=== PATIENT | female | born 1975 | race Caucasian/White ===

== ENCOUNTER 2021-07-16 14:27 | Emergency (ER) | payer BC, SELFPAY ==
[2021-07-16 14:36] VITALS: BP 180/97; PULSE 77; RESP 18; TEMP 36.7; O2SAT 98
--- NOTE | 2021-07-16 14:45 | DI.CT_ITS ---
Exam(s) CT HEAD WO EXAM: CT HEAD WO CLINICAL HISTORY: lt basal ganglia hemorrhagic cva. TECHNIQUE: Imaging Protocol: Axial computed tomography images with coronal and sagittal reformatted images were created and reviewed COMPARISON: No exams were available for comparison FINDINGS: Ventricles and Extra axial spaces: Normal in size and morphology for the patient's age. Hemorrhage: None. Cerebral parenchyma: Tiny area of low attenuation in the left basal ganglia, consistent with an old l acunar infarct. Midline shift: None. Brainstem/Cerebellum: Normal. Calvarium: Normal. Visualized Paranasal sinuses/Mastoids: Clear. Soft Tissues: Unremarkable. IMPRESSION: No acute intracranial process. RADIATION DOSE DELIVERED: 703.27mGy.cm Total DLP DATA REPOSITORY: All CT scans at this facility are submitted to the National Radiology Data Registry (NRDR) Dose Index Registry (DIR) with the [employer] ([employer]). RADIATION OPTIMIZATION: All CT scans at this facility use at least one of these dose optimization te chniques: automated exposure control; mA and/or kV adjustment per patient size (includes targeted exa ms where dose is matched to clinical indication); or iterative reconstruction.
--- NOTE | 2021-07-16 14:45 | RT.EKG_ITS ---
APPROVED REPORT Exam: Resting ECG Reason for Exam: BLOOD PRESSURE ISSUE Patient Location: E HR:71 bpm ECG Measurements Heart Rate 71 AXIS VA 197 P -2 QRSd 137 QRS 238 QT 464 T 29 QTc 505 Conclusion Sinus rhythm...normal P axis, V-rate 60- 99 Nonspecific intraventricular conduction delay...QRSd >115mS, not LBBB/RBBB
[2021-07-16] MEDS: LORazepam 2 MG/ML VIAL 1 MG IVP (15:23)
[2021-07-16 15:39] LABS: ALT 24 U/L (14-59); AST 19 U/L (15-37); Albumin 4.4 g/dL (3.4-5.0); Alkaline Phosphatase 55 U/L (46-116); Anion Gap 8.5 mmol/L (3-11); BUN 21 mg/dL (7-18); Bilirubin, Total 0.5 mg/dL (0.2-1.0); CO2 32.5 mmol/L (21.0-32.0); CREATININE 1.1 mg/dL (0.55-1.02); Chloride 99 mmol/L (98-107); Estimated GFR 53.71 (mL/min/1.73m2); Glucose 125 mg/dL (74-106); Potassium 3.3 mmol/L (3.5-5.1); Sodium 140 mmol/L (136-145); Total Protein 8.8 g/dL (6.4-8.2)
--- NOTE | 2021-07-16 16:02 | ED.GENADUL_ITS ---
Discharge Plan Disposition Patient Disposition: HOME Condition: Stable Discharge Details Clinical Impression: Anxiety, Headache, Hypertension Primary Care Provider: Unknown,Unknown ED Provider: Jose Mack Home Meds and New Rx's Prescriptions: New lorazepam [Ativan] 1 mg tablet 1 mg PO DAILY PRN (Reason: anxiety) Qty: 7 RF: 0 Continued metoprolol tartrate 50 mg Tablet 50 mg PO DAILY RF: 0 lisinopril-hydrochlorothiazide 20-25 mg Tablet 1 tab PO DAILY RF: 0 Discharge Instructions Instructions: Hypertension (ED), Anxiety (ED), General Headache (ED) Additional Instructions: Please contact your primary care physician to arrange follow-up. Return to the ER immediately for any worsening or new concerning symptoms. Continue your routine medications. May use Ativan, if needed for anxiety to help with sleep. Discharge Data Discharge Date/Time-TO BE ENTERED AT DEPARTURE: 07/16/21 18:37 Medical Decision Making <Josse Pope MD - Last Filed: 07/28/21 17:23> 1540 -- 45-year-old female with history of prior left basal ganglia hemorrhagic CVA, sarcoidosis, hypertension, here with severe anxiety, difficulty sleeping, elevated blood pressure and moderate frontal headache. No focal neurologic deficits on exam. Patient notes that hemorrhagic stroke was not related to aneurysm. CT head to assess for central neurologic process for central neurologic process. Suspect anxiety disorder and poor sleep. Patient was given Ativan 1 mg IV. Plan to reassess. Tylenol 650 mg given for headache. 1624 --labs reviewed and potassium noted to be 3.3. I will give single dose of 20 mEq potassium chloride. Normal creatinine. TSH pending. Patient was reassessed and anxiety improved. Blood pressure slightly improved but remains hypertensive. Patient notes that she has been taking her metoprolol and lisinopril/hydrochlorothiazide daily in the morning as prescribed. Patient notes that in the past she was on clonidine and that this did help her blood pressure. She is agreeable to trying a dose of clonidine 0.1 mg. <Jose Mack MD - Last Filed: 07/16/21 18:27> Received signout from Dr. Pope. Please see his note regarding details of the initial presentation, exam and plan of care. Patient's blood pressure improved significantly to 108/73. She underwent CT scan of the head without significant acute findings. Please see the formal radiology report. Patient stated her headache significantly improved. She had discussed some outpatient as needed use of anxiolytics with Dr. Pope which I do feel is reasonable. She is stable and improved, appropriate for discharge to home at this time. HPI <Josse Pope MD - Last Filed: 07/28/21 17:23> General Mode of arrival: ambulatory . Date/Time Provider Initiated Documentation: 07/16/21 14:56 . Limitations to Documentation: no limitations . Information obtained by: patient . HPI Narrative: 45-year-old female with history of sarcoidosis, left basal ganglia hemorrhagic stroke in January 2021 with mild residual right-sided weakness, here today with chief complaint of anxiety. Patient notes she has had difficulty sleeping for the past couple weeks. She states she has had anxiety in the past but never this severe. She believes her lack of sleep is contributing. She also notes associated elevated blood pressure and headache. Patient denies new neurologic symptoms. No weakness or tingling. No visual changes. Patient denies drug use. No herbal supplements. Related Data Home Medications Medication Instructions Recorded Confirmed lisinopril-hydrochlorothiazide 1 tab PO DAILY 07/16/21 07/16/21 lorazepam [Ativan] 1 mg PO DAILY PRN #7 tab 07/16/21 metoprolol tartrate 50 mg PO DAILY 07/16/21 07/16/21 Previous Rx's Medication Instructions Recorded lorazepam [Ativan] 1 mg PO DAILY PRN #7 tab 07/16/21 Allergies Allergy/AdvReac Type Severity Reaction Status Date / Time No Known Allergies Allergy Unverified 07/16/21 14:42 General Stated Complaint: Headache TARA: 3 Review of Systems <Josse Pope MD - Last Filed: 07/28/21 17:23> All systems reviewed & are unremarkable except as noted in HPI and below Constitutional Constitutional: Denies fever(s) Cardiovascular Cardiovascular: Denies chest pain Neurologic Neurologic: Reports as per HPI PFSH <Josse Pope MD - Last Filed: 07/28/21 17:23> Medical History Gout Sarcoidosis Stroke, hemorrhagic Surgical History History of lithotripsy Social History Smoking/Tobacco Use Status: Never Smoking risk assessment performed?: Yes Alcohol Intake: never Substance use type: does not use Do you feel safe at home: Yes Do you feel safe in your relationship?: Yes Exam <Josse Pope MD - Last Filed: 07/28/21 17:23> Const General: cooperative and no acute distress HENMT Head: normocephalic and atraumatic Mouth: moist mucous membranes Eyes Conjunctivae: normal conjunctivae Sclera: normal sclerae EOM: EOM intact bilaterally Neck Neck: trachea midline and supple Resp Auscultation: clear to auscultation bilaterally, no rales, no rhonchi and no wheezes Cardio Rate: regular rate and not tachycardic Rhythm: regular rhythm GI Palpation: soft, not firm, no guarding, no masses, not rigid and nontender Skin General skin exam: no rashes or lesions noted Neuro General: patient alert, patient awake, patient oriented x3 and tone normal Cranial Nerves: CN's II-XI intact bilaterally Cognition: normal cognition Speech: speech normal Motor: strength 5/5 throughout Sensory Exam: no sensory deficits noted Extrem General: no edema Psych Appearance: grossly normal Mental Status: mental status grossly normal Speech and Movement: speech and movement normal Mood: anxious mood Affect: anxious affect Attitude: cooperative Thought Process: normal Thought Content: normal Insight: insight good Course <Josse Pope MD - Last Filed: 07/28/21 17:23> Vital Signs Vital signs: Vital Signs Temperature 36.7 C 07/16/21 14:36 Pulse 77 07/16/21 14:36 Respiratory Rate 18 07/16/21 14:36 Blood Pressure 180/97 H 07/16/21 14:36 Pulse Oximetry 98 07/16/21 14:36 Temperature 36.7 C 07/16/21 14:36 Temperature Source Temporal Artery Scan 07/16/21 14:36 Pulse 77 07/16/21 14:36 Respiratory Rate 18 07/16/21 14:36 Respiratory Effort Non-Labored 07/16/21 14:43 Blood Pressure 180/97 H 07/16/21 14:36 Pulse Oximetry 98 07/16/21 14:36 Oxygen Delivery Method Room Air 07/16/21 14:36 Oxygen Flow Rate 0 07/16/21 14:36 Pain Level 7 07/16/21 14:36 Lab/Test Results Lab/Test Results: Laboratory Tests Range/Units 07/16/21 15:15 Sodium (136-145) mmol/L 140 Potassium (3.5-5.1) mmol/L 3.3 L Chloride (98-107) mmol/L 99 Carbon Dioxide (21.0-32.0) mmol/L 32.5 H Anion Gap (3-11) mmol/L 8.5 BUN (7-18) mg/dL 21 H Creatinine (0.55-1.02) mg/dL 1.1 H Estimated GFR/1.73 m2 (mL/min/1.73m2) 53.71 Glucose (74-106) mg/dL 125 H Calcium (8.5-10.1) mg/dL 10.0 Total Bilirubin (0.2-1.0) mg/dL 0.5 AST (15-37) U/L 19 ALT (14-59) U/L 24 Alkaline Phosphatase (46-116) U/L 55 Total Protein (6.4-8.2) g/dL 8.8 H Albumin (3.4-5.0) g/dL 4.4 POC- Test(urine) Negative Sign Out <Josse Pope MD - Last Filed: 07/28/21 17:23> Sign Out Data: Sign Out Comment: Patient here with anxiety, hypertension, headache. Plan for CT of the head. Patient receiving clonidine and plan to reassess blood p ressure. TSH pending. Last updated by Josse Pope MD at 07/16/21 16:27
[2021-07-16] MEDS: Acetaminophen 325 MG TAB 650 MG PO (16:10)
--- NOTE | 2021-07-16 16:10 | NUR.NOTE ---
Pt medicated w/ PO tylenol 650mg as ordered. Pt tolerated without complaints, NAD noted. Nursing Note:
[2021-07-16 16:25] VITALS: BP 166/113; PULSE 93; RESP 12; O2SAT 99
[2021-07-16 16:26] VITALS: BP 163/116
[2021-07-16] MEDS: cloNIDine 0.1 MG TAB PO (16:30)
[2021-07-16] MEDS: Potassium Chloride 20 MEQ TABCR PO (16:30)
[2021-07-16 16:39] LABS: TSH (W/Ref FT4) 1.17 uIU/mL (0.36-3.74)
[2021-07-16 17:34] VITALS: BP 108/73
--- NOTE | 2021-07-16 18:17 | DI.VRAD_ITS ---
PROCEDURE INFORMATION: Exam: CT Head Without Contrast Exam date and time: 07/16/2021 3:00 PM Age: 45 years old Clinical indication: Lt basal ganglia hemorrhagic CVA TECHNIQUE: Imaging protocol: Computed tomography of the head without contrast. COMPARISON: No relevant prior studies available. FINDINGS: Brain: No evidence for acute transcortical infarct. No mass effect or midline shift. No extra-axial collection. Chronic infarct involving the left basal ganglia. No acute intracranial hemorrhage. Basal cisterns are patent. Cerebral ventricles: No ventriculomegaly. Paranasal sinuses: Visualized sinuses are unremarkable. No fluid levels. Mastoid air cells: Visualized mastoid air cells are well aerated. Bones/joints: Unremarkable. No acute fracture. Soft tissues: Unremarkable. IMPRESSION: No evidence for acute transcortical infarct, acute intracranial hemorrhage, or mass effect. Dictated and Authenticated by: Shawn Brambila MD. Ordering:DOMINIK Loaiza MD
== END 2021-07-16 18:37 | disposition home or self-care (01) ==
PROVIDERS: Student in an Organized Health Care Education/Training Program; Emergency Provider Emergency Medicine
DX: F41.9 Anxiety disorder, unspecified (principal); R51.9 Headache, unspecified; I10 Essential (primary) hypertension
CPT/HCPCS: 36415; 80053; 81025; 93005; 96374; 99284; 70450; 84443; 93010; J2060

== ENCOUNTER 2021-08-27 14:38 | Emergency (ER) | payer BC, SELFPAY ==
[2021-08-27] VITALS (37 sets, daily range): BP systolic 92–191; BP diastolic 73–119; PULSE 94–123; RESP 15–28; TEMP 36.5; O2SAT 91–98
--- NOTE | 2021-08-27 14:30 | RT.EKG_ITS ---
APPROVED REPORT Exam: Resting ECG Reason for Exam: elephant on chest Patient Location: E HR:105 bpm ECG Measurements Heart Rate 105 AXIS WI 167 P 24 QRSd 111 QRS -53 QT 372 T 19 QTc 494 Conclusion Sinus tachycardia...rate> 99 LAD, consider left anterior fascicular block...axis(240,-40), S>R II III aVF. Sinus. No STEMI. I have reviewed and interpreted ECG and agree with software generated interpretation.
--- NOTE | 2021-08-27 14:45 | DI.RAD_ITS ---
Exam(s) XR CHEST 2V PA LATERAL EXAM: XR CHEST 2V PA LATERAL CLINICAL HISTORY: chest pain TECHNIQUE: 2D digital imaging was performed. COMPARISON: No exams were available for comparison FINDINGS: The heart is not enlarged. The lungs are clear and well expanded. No pleural effusion seen. Mediastin al contours appear intact. IMPRESSION: Normal chest. RADIATION DOSE DELIVERED: Total DLP
--- NOTE | 2021-08-27 15:05 | ED.GENADUL_ITS ---
Discharge Plan Disposition Patient Disposition: HOME Condition: Stable Discharge Details Clinical Impression: Anxiety Primary Care Provider: Unknown,Unknown ED Provider: Isiah Salazar Home Meds and New Rx's Prescriptions: New hydroxyzine HCl 50 mg tablet 50 mg PO BID PRN (Reason: anxiety) Qty: 30 RF: 0 lorazepam 1 mg tablet 1 mg PO Q6H PRN (Reason: anxiety) Qty: 5 RF: 0 Continued metoprolol tartrate 50 mg Tablet 50 mg PO DAILY 30 Days Qty: 30 RF: 0 lisinopril-hydrochlorothiazide 20-25 mg Tablet 1 tab PO DAILY 30 Days Qty: 30 RF: 0 Discharge Instructions Instructions: Anxiety (ED) Additional Instructions: Please use the Atarax as needed for any further anxiety and take lorazepam only if needed for severe anxiety as discussed. We have placed you on a primary care follow-up list for preferably follow-up in the next week but for any change or worsening of symptoms please return to the emergency department for reevaluation. Discharge Data Discharge Date/Time-TO BE ENTERED AT DEPARTURE: 08/27/21 19:07 Medical Decision Making <KAMILA Whaley - Last Filed: 08/28/21 16:42> This is a 45-year-old female, past medical history of hypertension, gout, sarcoidosis, hemorrhagic stroke over the summer, presenting to the ER for what she describes as ongoing and worsening chest heaviness and anxiety with panic attacks. She reports that she has been in this area longer than she anticipated which does cause her stress but otherwise no obvious stressors. She states that she is not interested in actively talking to mental health but would be interested in establishing a primary care provider locally. I have placed her on the care management with the help expedite this. Given her presentation, plan is to obtain IV access, cardiac work-up including serial troponin and D- dimer given her tachycardia. Will provide her 1 mg IV Ativan as well. Patient had a very similar presentation with thorough work-up including head CT back on July 16. Clinically she appears well, nontoxic, neurologically intact. Initial presentation revealed a heart rate of 120 and a blood pressure of 176/119. She was given 1 mg IV Ativan and her heart rate decreased to 105, blood pressure 155/89. Subjectively patient reports mild improvement CBC unremarkable. Chemistries reveal a sodium of 138 potassium 3.4 creatinine 1.0 with a GFR of 59.96. Magnesium 1.8. Troponin less than 50. Chest x-ray and D-dimer also pending. Upon reevaluation patient reports that she feels as though her anxiety is once again worsening. Heart rate is now 106, blood pressure 149/90. She will be given a second dose of 1 mg IV Ativan. Medical Records Medical records reviewed: Yes I reviewed the patient's medical records. ECG Data Attestation: I personally reviewed and interpreted this ECG (s) as follows: Interpretation: Please see official report by Dr. Gooden. Sinus tachycardia, ventricular rate of 105. No STEMI. <Isiah Salazar NP - Last Filed: 08/27/21 23:18> Patient signed out to me from KAMILA Williamson. Patient is pending a repeat troponin and following up on D-dimer testing. Report given was that patient is severely anxious and chest pain etiology is more likely is from anxiety and cardiac nature. Patient was assessed and it does appear acutely anxious but is feeling better. Reviewed labs which are reassuring and again reduce my position of ACS. Further discussion with patient is that she was on multiple medications for anxiety in the past but has not been on them for months given that she is no longer seeing her primary care provider due to moving to [place]. I feel this is reassuring given that patient is anxious in appearance and has history of similar episodes. Given this I do feel that patient should follow-up with primary care for establishment and further care of her hypertension, in which her medications were refilled due to her stating that she is almost out of her hypertensive medications, and resumption of QING treatment. Patient was given lorazepam for severe episodes of anxiety and given hydroxyzine for more mild anxiety. Return and follow-up precautions were discussed and patient placed upon follow-up for primary care establishment. After discussion of diagnosis and plan of care patient has no further needs, questions, or concerns and states clear under standing to return to the emergency department for any worsening symptoms. HPI <KAMILA Whaley - Last Filed: 08/28/21 16:42> General Mode of arrival: ambulatory . Date/Time Provider Initiated Documentation: 08/27/21 14:39 . Limitations to Documentation: no limitations . Information obtained by: patient . HPI Narrative: This is a 45-year-old female, not vaccinated for Covid, past medical history that includes HTN, sarcoidosis, gout, hemorrhagic stroke over the summer with only minimal right hand deficit, presenting to the ER for what she describes as worsening anxiety, panic attack, chest heaviness, rapid heart rate. Patient states this been going on for quite some time, was seen in the ER on 07-16 for the same and work-up was unremarkab le. Patient states that she lives in [place] and was supposed to be going back in May, is still here, which is causing her more anxiety. She states that she has been taking her medication, specifically metoprolol as directed and even taking it an extra time a day once in a while when she feels as though her blood pressure is elevated. Patient denies any headache, neck pain, visual changes, shortness of breath, abdominal pain, nausea, vomiting, pain or swelling in her calves. Denies history of DVT or PE. Patient reports a chest heaviness but denies any chest pain. Patient states that her symptoms have been present for at least 1-1/2 months but this afternoon they felt much more severe. She denies recent sick contacts. She denies smoking, alcohol use or drug use Related Data Home Medications Medication Instructions Recorded Confirmed hydroxyzine HCl 50 mg PO BID PRN #30 tab 08/27/21 lisinopril-hydrochlorothiazide 1 tab PO DAILY 30 Days #30 tab 08/27/21 lorazepam 1 mg PO Q6H PRN #5 tab 08/27/21 metoprolol tartrate 50 mg PO DAILY 30 Days #30 tab 08/27/21 Previous Rx's Medication Instructions Recorded hydroxyzine HCl 50 mg PO BID PRN #30 tab 08/27/21 lisinopril-hydrochlorothiazide 1 tab PO DAILY 30 Days #30 tab 08/27/21 lorazepam 1 mg PO Q6H PRN #5 tab 08/27/21 metoprolol tartrate 50 mg PO DAILY 30 Days #30 tab 08/27/21 Allergies Allergy/AdvReac Type Severity Reaction Status Date / Time No Known Allergies Allergy Unverified 08/27/21 14:50 General Stated Complaint: Anxiety TARA: 3 Review of Systems <KAMILA Whaley - Last Filed: 08/28/21 16:42> Constitutional Constitutional: Denies fever(s), Reports headache(s) (Occasional) and Denies weakness Eyes Eyes: Denies change in vision ENT Ears, Nose, Mouth, and Throat: Reports headache(s) (Occasional) and Denies neck pain Cardiovascular Cardiovascular: Reports chest pain (Heaviness) and Denies dyspnea Respiratory Respiratory: Denies cough and Denies dyspnea Gastrointestinal Gastrointestinal: Denies abdominal pain, Denies nausea and Denies vomiting Musculoskeletal Musculoskeletal: Denies back pain, Denies neck pain, Denies numbness and Denies tingling Integumentary/Breasts Skin/Breast: Denies rash Neurologic Neurologic: Reports headache(s) (Occasional), Denies numbness, Denies tingling and Denies weakness Psychiatric Psychiatric: Reports anxiety Endocrine Endocrine: Denies fatigue PFSH <KAMILA Whaley - Last Filed: 08/28/21 16:42> All Active Problems (Updated 08/27/21 @ 18:33 by Isiah Salazar NP) Anxiety (Chronic) Headache (Acute) Hypertension (Chronic) Medical History Gout Sarcoidosis Stroke, hemorrhagic Surgical History History of lithotripsy Social History Smoking/Tobacco Use Status: Never Smoking risk assessment performed?: Yes Alcohol Intake: never Drug use: Never Substance use type: does not use Do you feel safe at home: Yes Do you feel safe in your relationship?: Yes Exam <KAMILA Whaley - Last Filed: 08/28/21 16:42> Const General: cooperative, healthy appearing, comfortable, no acute distress and anxious Orientation: alert, awake and oriented x3 HENMT Head: normal to inspection, normocephalic and atraumatic Face and sinus: normal facial exam Mouth: moist mucous membranes Eyes General: appearance normal, both eyes and all related structures Conjunctivae: conjunctivae normal Neck Neck: normal visual inspection, full ROM, trachea midline and supple Resp Effort & Inspection: normal respiratory effort and able to speak in complete sentences Auscultation: clear to auscultation bilaterally Cardio Rate: tachycardic (120) Rhythm: regular rhythm GI Palpation: soft and nontender Back/Spine/Pelvis Back: No back tenderness Skin General skin exam: no rashes or lesions noted Neuro General: patient alert, patient awake, patient oriented x3, moves all extremities and no focal motor deficits Cranial Nerves: CN's II-XI intact bilaterally Cognition: normal cognition Speech: speech normal Gait: normal gait Motor: muscle tone normal throughout Sensory Exam: no sensory deficits noted Extrem General: normal to inspection, full ROM, capillary refill normal, no pedal edema and no calf tenderness Psych Appearance: grossly normal Mental Status: mental status grossly normal Course <KAMILA Whaley - Last Filed: 08/28/21 16:42> Vital Signs Vital signs: Vital Signs Temperature 36.5 C 08/27/21 14:42 Pulse 120 H 08/27/21 14:42 Respiratory Rate 21 08/27/21 14:42 Blood Pressure 176/119 H 08/27/21 14:42 Pulse Oximetry 98 08/27/21 14:42 Temperature 36.5 C 08/27/21 14:42 Temperature Source Temporal Artery Scan 08/27/21 14:42 Pulse 120 H 08/27/21 14:42 Respiratory Rate 21 08/27/21 14:42 Respiratory Effort Non-Labored 08/27/21 14:48 Blood Pressure 176/119 H 08/27/21 14:42 Blood Pressure Position Sitting 08/27/21 14:42 Pulse Oximetry 98 08/27/21 14:42 Oxygen Delivery Method Room Air 08/27/21 14:42 Oxygen Flow Rate 0 08/27/21 14:42 Pain Level 0 08/27/21 14:42 Sign Out <KAMILA Whaley - Last Filed: 08/28/21 16:42> Sign Out Data: Sign Out Comment: 45-year-old female, past medical history of hypertension, hemorrhagic CVA over the summer, sarcoidosis, presenting for acute on chronic worse anxiety and panic attacks with a chest heaviness sensation. Intermittently been going on for 1-2-month but worse over the afternoon. Plan is to obtain cardiac work-up with serial troponin, and D-dimer. Patient receiving IV Ativan. She is open to obtaining a local primary care provider but declined a mental health evaluation here in the ER. Last updated by Arun Mathis PA at 08/27/21 15:50
[2021-08-27] MEDS: LORazepam 2 MG/ML VIAL 1 MG IVP ×2 (15:10→15:56)
[2021-08-27 15:26] LABS: Abs Immature Grans 0.02 10^3/uL (0.0-0.06); Absolute Basophil Count 0.02 10^3/uL (0.0-0.2); Absolute Eosinophil Count 0.12 10^3/uL (0.0-0.7); Absolute Lymphocyte Count 1.31 10^3/uL (1.2-3.4); Absolute Monocyte Count 0.49 10^3/uL (0.1-0.8); Absolute Neutrophil Count 3.26 10^3/uL (1.2-6.7); Basophils % 0.4; Eosinophils % 2.3; HGB 12.9 g/dL (11.2-15.7); Immature Grans % 0.4; Lymphocytes % 25.1; MCH 29.4 pg (27.0-33.0); MCHC 33.1 % (32.0-36.0); MCV 88.8 fL (80-95); MPV 9.2 fL (8.0-11.0); Monocytes % 9.4; Neutrophils % 62.4; Nucleated RBC 0 %; Platelet Count 204 10^3/uL (130-400); RBC 4.39 10^6/uL (3.93-5.22); RDW-SD 44.6 fL; WBC 5.22 10^3/uL (4.4-10.8)
[2021-08-27 15:41] LABS: ALT 25 U/L (14-59); AST 19 U/L (15-37); Albumin 3.7 g/dL (3.4-5.0); Alkaline Phosphatase 56 U/L (46-116); Anion Gap 8.2 mmol/L (3-11); BUN 18 mg/dL (7-18); Bilirubin, Total 0.4 mg/dL (0.2-1.0); CO2 29.8 mmol/L (21.0-32.0); Calcium 9.4 mg/dL (8.5-10.1); Chloride 100 mmol/L (98-107); Estimated GFR 59.96 (mL/min/1.73m2); Glucose 177 mg/dL (74-106); Magnesium 1.8 mg/dL (1.8-2.4); Potassium 3.4 mmol/L (3.5-5.1); Sodium 138 mmol/L (136-145); Total Protein 7.7 g/dL (6.4-8.2); Troponin I < 50 ng/L (<or=60)
[2021-08-27 15:57] LABS: D-Dimer 482 ng/mlFEU (<500)
--- NOTE | 2021-08-27 16:25 | NUR.NOTE ---
Referral made to Care Management for a PCP per Arun Mathis as the patient does not have one. Put in the animal care worker's box for follow-up.
[2021-08-27] MEDS: hydrOXYzine HCL 25 MG TAB PO (17:36)
[2021-08-27 18:21] LABS: Troponin I < 50 ng/L (<or=60)
--- NOTE | 2021-08-27 19:05 | NUR.NOTE ---
Put referral in the managed care provider's box per Isiah Salazar for a PCP within one week for anxiety, hypertension, and ER follow up for chest pain.
--- NOTE | 2021-08-28 13:43 | PDOC.ERCMACT ---
- If Service Date Differs Date of service: 08/28/21 Time of Service: 13:43 Care Management Activity Note Susan was seen in the ED for chest pain and anxiety. At the request of ED provider, CM coordinates a referral to Anusha Rodriguez MD, of [facility], on-call provider, to assist Susan in obtaining a follow up appointment and in establishing care with a PCP.
== END 2021-08-27 19:07 | disposition home or self-care (01) ==
PROVIDERS: Physician Assistant; Emergency Provider Nurse Practitioner Family
DX: F41.9 Anxiety disorder, unspecified (principal); R07.89 Other chest pain; I10 Essential (primary) hypertension; R00.0 Tachycardia, unspecified
CPT/HCPCS: 80053; 81025; 93005; 96374; 96376; 99284; 71046; 83735; 84484; 85025; 85379; 93010; 99283; J2060

== ENCOUNTER 2021-09-05 13:21 | Emergency (ER) | payer BC, SELFPAY ==
--- NOTE | 2021-09-05 13:15 | RT.EKG_ITS ---
APPROVED REPORT Exam: Resting ECG Reason for Exam: hypertension Patient Location: E HR:62 bpm ECG Measurements Heart Rate 62 AXIS DE 166 P 9 QRSd 118 QRS -32 QT 466 T 44 QTc 473 Conclusion Sinus rhythm...normal P axis, V-rate 60- 99 Nonspecific intraventricular conduction delay...QRSd >115mS, not LBBB/RBBB
[2021-09-05 13:24] VITALS: BP 140/102; PULSE 70; RESP 16; TEMP 36.6; O2SAT 99
--- NOTE | 2021-09-05 13:45 | DI.CT_ITS ---
Exam(s) CT HEAD WO EXAM: CT HEAD WO CLINICAL HISTORY: HEADACHE 1-2 HOURS, HTN, PRIOR CVA. TECHNIQUE: Imaging Protocol: Axial computed tomography images with coronal and sagittal reformatted images were created and reviewed COMPARISON: CT CT HEAD WO from 07/16/2021 FINDINGS: There are no skull fractures nor fluid in the visualized paranasal sinuses. Minimal mucosal thicken ing noted posteriorly right maxillary sinus. No true fluid level therein. There is no evidence of intracranial hemorrhage, mass effect, or shift of midline structures. There are no extra-axial fluid collections. The ventricles are not enlarged or shifted and there is no blo od within the ventricular system nor within the basal cisterns. Previously described area of abnormal hypodensity in the left basal ganglia is unchanged and consiste nt with previous ischemic sequelae at this level. IMPRESSION: No acute intracranial findings on this noninfused CT scan of the brain. Evidence of nonacute infarct in left basal ganglia. If clinically indicated follow-up MRI can be performed. Report called by myself to ER provider. RADIATION DOSE DELIVERED: 749.62mGy.cm Total DLP DATA REPOSITORY: All CT scans at this facility are submitted to the National Radiology Data Registry (NRDR) Dose Index Registry (DIR) with the [employer] [place] [employer] ([employer]). RADIATION OPTIMIZATION: All CT scans at this facility use at least one of these dose optimization te chniques: automated exposure control; mA and/or kV adjustment per patient size (includes targeted exa ms where dose is matched to clinical indication); or iterative reconstruction.
--- NOTE | 2021-09-05 13:53 | ED.GENADUL_ITS ---
Discharge Plan Disposition Patient Disposition: HOME Condition: Stable Discharge Details Clinical Impression: Headache, Hypertension Primary Care Provider: Unknown,Unknown ED Provider: Josse Pope Home Meds and New Rx's Prescriptions: Continued hydroxyzine HCl 50 mg tablet 50 mg PO BID PRN (Reason: anxiety) Qty: 30 RF: 0 lorazepam 1 mg tablet 1 mg PO Q6H PRN (Reason: anxiety) Qty: 5 RF: 0 lisinopril-hydrochlorothiazide 20-25 mg Tablet 1 tab PO DAILY 30 Days Qty: 30 RF: 0 Changed metoprolol tartrate 50 mg tablet 50 mg PO TID Qty: 60 RF: 0 Discharge Instructions Instructions: Hypertension (ED), General Headache (ED) Additional Instructions: Please monitor your blood pressure. Please keep a record of your blood pressure at least twice a day and also when you take your antihypertensive medication. Please contact your primary care physician to arrange follow-up. Return to the ER immediately for any worsening or new concerning symptoms. Please get vaccinated for COVID as soon as possible. Please discuss this with your primary care physician. 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 Patient did take an extra dose of her metoprolol about an hour prior to arrival and blood pressure has improved. She notes she is starting to feel better but continues to have moderate headache. Headache is not the worst headache currently rated 8/10 and localized diffusely. Patient does note she had headache with her hemorrhagic stroke in the past and is concerned about this. Complete neurologic exam was performed and patient has no focal neurologic findings. CT of the head interpreted by radiology: No acute finding. FINDINGS: There are no skull fractures nor fluid in the visualized paranasal sinuses. Minimal mucosal thickening noted posteriorly right maxillary sinus. No true fluid level therein. There is no evidence of intracranial hemorrhage, mass effect, or shift of midline structures. There are no extra-axial fluid collections. The ventricles are not enlarged or shifted and there is no blood within the ventricular system nor within the basal cisterns. Previously described area of abnormal hypodensity in the left basal ganglia is unchanged and consistent with previous ischemic sequelae at this level. IMPRESSION: No acute intracranial findings on this noninfused CT scan of the brain. Evidence of nonacute infarct in left basal ganglia. All results were discussed with the patient. Patient reassessed and continues to remain stable after ED observation. Patient remains hemodynamically stable. She notes headache has resolved. Neurologically stable. No numbness. Continues to have no focal weakness. Plan will be for discharge with outpatient follow-up. She has an appointment scheduled with new primary care within the next couple weeks. I will increase her metoprolol to 50 mg 3 times daily as this did seem to appropriately reduce her blood pressure today. Usual customary discharge instructions were reviewed with patient. She understands the importance of timely outpatient follow-up with PCP and that she return immediately for any worsening or new concerning symptom HPI General Mode of arrival: ambulatory . Date/Time Provider Initiated Documentation: 09/05/21 13:32 . Limitations to Documentation: no limitations . Information obtained by: patient . 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 Patient took an extra dose of her metoprolol about an hour prior to arrival. She notes she is starting to feel better but continues to have moderate headache. Headache is not the worst headache currently rated 8/10 and localized diffusely. Patient does note she had headache with her hemorrhagic stroke in the past and is concerned about this. No associated visual changes or changes in speech. No focal weakness. Related Data Home Medications Medication Instructions Recorded Confirmed hydroxyzine HCl 50 mg PO BID PRN #30 tab 08/27/21 09/05/21 lisinopril-hydrochlorothiazide 1 tab PO DAILY 30 Days #30 tab 08/27/21 09/05/21 lorazepam 1 mg PO Q6H PRN #5 tab 08/27/21 metoprolol tartrate 50 mg PO TID #60 tab 09/05/21 Previous Rx's Medication Instructions Recorded hydroxyzine HCl 50 mg PO BID PRN #30 tab 08/27/21 lisinopril-hydrochlorothiazide 1 tab PO DAILY 30 Days #30 tab 08/27/21 lorazepam 1 mg PO Q6H PRN #5 tab 08/27/21 metoprolol tartrate 50 mg PO TID #60 tab 09/05/21 Allergies Allergy/AdvReac Type Severity Reaction Status Date / Time No Known Allergies Allergy Unverified 09/05/21 13:29 General Stated Complaint: CVA/TIA TARA: 2 Review of Systems All systems reviewed & are unremarkable except as noted in HPI and below Constitutional Constitutional: Denies fever(s) Cardiovascular Cardiovascular: Denies chest pain PFSH All Active Problems (Updated 09/05/21 @ 15:39 by Josse Pope MD) Anxiety (Chronic) Headache (Acute) Hypertension (Chronic) Headache (Acute) Hypertension (Chronic) Medical History Gout Sarcoidosis Stroke, hemorrhagic Surgical History History of lithotripsy Social History Smoking/Tobacco Use Status: Never Smoking risk assessment performed?: Yes Alcohol Intake: current Alcohol Intake frequency: holidays/special occasions only Drug use: Never Substance use type: does not use Do you feel safe at home: Yes Do you feel safe in your relationship?: Yes Exam Const General: cooperative and no acute distress HENMT Head: normocephalic and atraumatic Mouth: moist mucous membranes Eyes Conjunctivae: normal conjunctivae Sclera: normal sclerae Neck Neck: trachea midline and supple Resp Auscultation: clear to auscultation bilaterally, no rales, no rhonchi and no wheezes Cardio Rate: regular rate and not tachycardic Rhythm: regular rhythm Heart Sounds: no gallops, no murmurs and no rubs GI Palpation: soft, not firm, no guarding, no masses, not rigid and nontender Skin General skin exam: no rashes or lesions noted Neuro General: patient alert, patient awake, patient oriented x3 and tone normal Cranial Nerves: PERRL, accommodation normal, EOM intact bilaterally, no nystagmus, facial strength normal, tongue midline, hearing normal, able to elevate shoulders bilaterally and symmetric palate elevation Cognition: normal cognition Speech: speech normal Motor: strength 5/5 throughout Sensory Exam: no sensory deficits noted Extrem General: no edema Psych Appearance: grossly normal Mental Status: mental status grossly normal Speech and Movement: speech and movement normal Course Vital Signs Vital signs: Vital Signs Temperature 36.6 C 09/05/21 13:24 Pulse 70 09/05/21 13:24 Respiratory Rate 16 09/05/21 13:24 Blood Pressure 140/102 H 09/05/21 13:24 Pulse Oximetry 99 09/05/21 13:24 Temperature 36.6 C 09/05/21 13:24 Temperature Source Skin 09/05/21 13:24 Pulse 70 09/05/21 13:24 Respiratory Rate 16 09/05/21 13:24 Respiratory Effort 09/05/21 13:32 Blood Pressure 140/102 H 09/05/21 13:24 Pulse Oximetry 99 09/05/21 13:24 Oxygen Delivery Method Room Air 09/05/21 13:24 Oxygen Flow Rate 0 09/05/21 13:24 Pain Level 8 09/05/21 13:24 Comment 09/05/21 13:24 PAWSS Have you Been Recently Intoxicated or Drunk Within the Last 30 days?: No Have you Ever Experienced Previous Episodes of Alcohol Withdrawal?: No Have you ever Experienced Withdrawal Seizures?: No Have you ever Experienced Delirium Tremens(DT)s?: No Have you ever undergone Alcohol Rehabilitation Treatment (i.e, inpt ot outpatient treatment programs)?: No Have you ever Experienced Blackouts?: No Have you ever Combined Alcohol with other Downers within the last 90 days?: No Have you ever Combined Alcohol with any other Substance of Abuse during the last 90 days?: No Positive Blood Alcohol level on Presentation? [PCS.BAL]: No Evidence of Increased Autonomic Activity (i.e. HR>120, tremor, sweating, agitation, nausea)?: No Result: 0
[2021-09-05 13:58] LABS: Abs Immature Grans 0.04 10^3/uL (0.0-0.06); Absolute Basophil Count 0.05 10^3/uL (0.0-0.2); Absolute Lymphocyte Count 1.44 10^3/uL (1.2-3.4); Absolute Monocyte Count 0.56 10^3/uL (0.1-0.8); Absolute Neutrophil Count 3.18 10^3/uL (1.2-6.7); Basophils % 0.9; Eosinophils % 3.7; HCT 36.4 % (36.0-46.0); HGB 12.2 g/dL (11.2-15.7); Immature Grans % 0.7; Lymphocytes % 26.3; MCH 29.8 pg (27.0-33.0); MCHC 33.5 % (32.0-36.0); MCV 88.8 fL (80-95); MPV 9.4 fL (8.0-11.0); Monocytes % 10.2; Neutrophils % 58.2; Nucleated RBC 0 %; Platelet Count 239 10^3/uL (130-400); RDW 13.7 % (11.7-14.6); RDW-SD 43.5 fL; WBC 5.47 10^3/uL (4.4-10.8)
[2021-09-05 14:14] LABS: ALT 23 U/L (14-59); AST 26 U/L (15-37); Albumin 3.6 g/dL (3.4-5.0); Alkaline Phosphatase 52 U/L (46-116); Anion Gap 5.4 mmol/L (3-11); BUN 15 mg/dL (7-18); Bilirubin, Total 0.3 mg/dL (0.2-1.0); CO2 32.6 mmol/L (21.0-32.0); Calcium 9.4 mg/dL (8.5-10.1); Chloride 101 mmol/L (98-107); Estimated GFR 59.96 (mL/min/1.73m2); Glucose 131 mg/dL (74-106); Magnesium 1.8 mg/dL (1.8-2.4); Potassium 3.9 mmol/L (3.5-5.1); Sodium 139 mmol/L (136-145); Total Protein 7.7 g/dL (6.4-8.2); Troponin I < 50 ng/L (<or=60)
== END 2021-09-05 15:48 | disposition home or self-care (01) ==
PROVIDERS: Emergency Provider Student in an Organized Health Care Education/Training Program
DX: R51.9 Headache, unspecified (principal); I10 Essential (primary) hypertension; R20.0 Anesthesia of skin; Z86.73 Personal history of transient ischemic attack (TIA), and cerebral infarction without residual deficits
CPT/HCPCS: 36415; 80053; 81025; 93005; 99284; 70450; 83735; 84484; 85025; 93010; 99283

== ENCOUNTER 2021-09-24 07:56 | Emergency (ER) | payer BC, SELFPAY ==
[2021-09-24] VITALS (24 sets, daily range): BP systolic 144–185; BP diastolic 79–112; PULSE 60–77; RESP 12–28; TEMP 36.4; O2SAT 93–100
--- NOTE | 2021-09-24 08:00 | RT.EKG_ITS ---
APPROVED REPORT Exam: Resting ECG Reason for Exam: dizziness, elevated bp Patient Location: E HR:60 bpm ECG Measurements Heart Rate 60 AXIS [place] 157 P 6 QRSd 123 QRS -18 QT 468 T 57 QTc 469 Conclusion Sinus rhythm...normal P axis, V-rate 60- 99 Probable left ventricular hypertrophy...(RaVL+SV3)xQRSd >300 sinus rhythm at 60, normal axis, probable LVH, no STEMI, no major change from prior 09/05/2021, nondia gnostic EKG
--- NOTE | 2021-09-24 08:21 | ED.GENADUL_ITS ---
Discharge Plan Disposition Patient Disposition: HOME Condition: Improving Discharge Details Clinical Impression: Hypertension, Hematuria, Anxiety Primary Care Provider: Unknown,Unknown ED Provider: Katharina Pope Home Meds and New Rx's Prescriptions: New lisinopril 40 mg tablet 40 mg PO DAILY Qty: 30 RF: 0 chlorthalidone 25 mg tablet 25 mg PO DAILY Qty: 30 RF: 0 amlodipine 5 mg tablet 5 mg PO DAILY Qty: 30 RF: 0 lorazepam [Ativan] 0.5 mg tablet 0.5 mg PO BID PRN (Reason: anxiety) Qty: 10 RF: 0 Discontinued lisinopril-hydrochlorothiazide 20-25 mg Tablet 1 tab PO DAILY 30 Days Qty: 30 RF: 0 No Action metoprolol tartrate 50 mg tablet 50 mg PO TID Qty: 60 RF: 0 Discharge Instructions Instructions: Lorazepam (By mouth), Chlorthalidone (By mouth), Amlodipine (By mouth), Hematuria (ED), Hypertension (ED) Additional Instructions: Please stop taking your lisinopril/hydrochlorothiazide pill. Please begin taking lisinopril 40 mg daily, chlorthalidone 25 mg daily, and amlodipine 5 mg daily. Continue to take your metoprolol as prescribed. You have been prescribed Ativan, you may take 0.5 mg Ativan as needed every 12 hours for anxiety. Do not take Ativan with alcohol or other sedating medications as it can be dangerous when using combination with other sedating medication, drugs, or alcohol. Do not drive well taking Ativan. Please return immediately to the emergency department if you develop any new or worsening symptoms, if your condition does not improve as expected, or if you become otherwise concerned. It is extremely important that you call soon as possible to make an appointment to be seen in follow-up for this visit by a urologist, and also that you attend your scheduled appointment with the PCP on October 01. Referrals: Arsh Littlejohn MD [ [facility] STAFF PHYSICIAN] - Medical Decision Making Susan Salas is a 46 y/o woman with history of CVA 02/10, hypertension presenting to emergency department with high blood pressure readings. On exam patient is well nontoxic-appearing, and anxious. Benign cardiopulmonary exam. Benign neurologic exam. As patient reports that headaches are very typical for her and often much worse than what is currently occurring, her exam/history at this time is not consistent with acute CVA, subarachnoid hemorrhage, other acute emergent endorgan damage including acute coronary syndrome, hypertensive emergency. Concern for chronic asymptomatic hypertension resistant to medication, possible metabolic/lyte derangement, other. Plan for EKG, screening labs. I did discuss patient's presentation with hospitalist Dr. Roland for outpatient management of blood pressure, he recommended switch to lisinopril 40 mg, chlorthalidone 25 mg, add Norvasc 5 mg, remove hydrochlorothiazide, continue metoprolol 50 mg. Patient's heart rate in the 60s at this point, plan to give lisinopril 40 mg, Norvasc 5 mg, chlorthalidone 25 mg, and 1 mg Ativan at this time. Will monitor and reassess. Patient blood pressure improved, currently 144/95. Patient reports that she feels much better, headache is resolved. She has had no vomiting in the emergency department. She denies any other symptoms other than some continuing anxiety. I had a lengthy discussion with patient about mental health issues, importance of outpatient follow-up as patient does likely need work-up for secondary hypertension, needs to be evaluated for need for sarcoidosis medication, and also for ongoing hematuria. Patient to follow-up here tomorrow morning for recheck after change in meds, she is amenable to this plan. Patient will also need to see PCP as schedule 10/01, and will need to see urology. I did discuss patient with care management, who will follow as outpatient. Plan for Rx 0.5 mg Ativan x10 as her anxiety is likely contributing somewhat to her blood pressure and is also causing her some distress at home. Exam/history at this time not consistent with acute suicidality or acute emergent psychiatric process. I had a discussion with Patient regarding return to emergency department precautions, home care, and importance of outpatient follow-up. Pt verbalizes understanding of the plan and is amenable. Patient discharged to home with clear plan for outpatient follow-up. All questions were answered. Disposition decision was made weighing the risks and benefits of hospitalization versus outpatient treatment, the risk for further decompensation, and the patient's wishes. Medical Records Medical records reviewed: Yes I reviewed the patient's medical records. Lab Data Lab results reviewed: Yes I reviewed the patient's lab results. Labs: Laboratory Tests Range/Units 09/24/21 09/24/21 09/24/21 08:50 08:50 09:45 WBC (4.4-10.8) 10^3/uL 5.49 RBC (3.93-5.22) 10^6/uL 4.41 Hgb (11.2-15.7) g/dL 12.8 Hct (36.0-46.0) % 39.2 MCV (80-95) fL 88.9 MCH (27.0-33.0) pg 29.0 MCHC (32.0-36.0) % 32.7 RDW (11.7-14.6) % 13.5 Plt Count (130-400) 10^3/uL 181 MPV (8.0-11.0) fL 9.2 Immature Gran % 0.4 Neutrophils % 73.4 Lymphocytes % 15.3 Monocytes % 6.9 Eosinophils % 3.3 Basophils % 0.7 Nucleated RBC % % 0 Absolute Neutrophils (1.2-6.7) 10^3/uL 4.03 Absolute Lymphocytes (1.2-3.4) 10^3/uL 0.84 L Absolute Monocytes (0.1-0.8) 10^3/uL 0.38 Absolute Eosinophils (0.0-0.7) 10^3/uL 0.18 Absolute Basophils (0.0-0.2) 10^3/uL 0.04 Sodium (136-145) mmol/L 137 Potassium (3.5-5.1) mmol/L 3.4 L Chloride (98-107) mmol/L 97 L Carbon Dioxide (21.0-32.0) mmol/L 31.4 Anion Gap (3-11) mmol/L 8.6 BUN (7-18) mg/dL 16 Creatinine (0.55-1.02) mg/dL 1.0 Estimated GFR/1.73 m2 (mL/min/1.73m2) 59.69 Glucose (74-106) mg/dL 161 H Calcium (8.5-10.1) mg/dL 9.2 Total Bilirubin (0.2-1.0) mg/dL 0.6 AST (15-37) U/L 19 ALT (14-59) U/L 20 Alkaline Phosphatase (46-116) U/L 57 Total Protein (6.4-8.2) g/dL 7.9 Albumin (3.4-5.0) g/dL 3.9 Urine Color (Yellow) Yellow Urine Clarity (Clear) Clear Urine pH (5-8) 7.0 Ur Specific [place] (1.005-1.025) 1.020 Urine Protein (Negative) mg/dL Negative Urine Ketones (Negative) mg/dL Negative Urine Blood (Negative) Trace-intact H Urine Nitrite (Negative) Negative Urine Bilirubin (Negative) Negative Urine Urobilinogen (Up TO 0.2) EU/dL 0.2 Ur Leukocyte Esterase (Negative) Small H Urine RBC (0-2) HPF 0-2 Urine WBC (0-5) HPF 3-5 Ur Epithelial Cells (Negative) HPF Rare Urine Crystals (Negative) HPF Negative Urine Bacteria (Negative) HPF Few Urine Casts (Negative) LPF Negative Urine Mucus (Negative) Negative Urine Other (Negative) Negative Ur Culture Indicated? No Urine Glucose (Negative) mg/dL Negative ECG Data Attestation: I personally reviewed and interpreted this ECG (s) as follows: Interpretation: EKG shows sinus rhythm at 60, normal axis, probable LVH, no STEMI, no major change from prior 09/05/2021, nondiagnostic EKG HPI General Mode of arrival: ambulatory . Date/Time Provider Initiated Documentation: 09/24/21 07:57 . Limitations to Documentation: no limitations . Information obtained by: patient, RN notes reviewed and old records reviewed . HPI Narrative: Susan Salas is a 46-year-old woman with a history of hypertension, sarcoidosis, CVA presenting to the emergency department with high blood pressure readings. Per record review patient had basal ganglia stroke 02/10, has been seen in this emergency department several times for high blood pressure. Patient reports that she was scheduled to have outpatient PCP follow- up as an outpatient last week, but PCP's office rescheduled for 10/01. Patient reports that her home blood pressure readings have been very high, with systolic readings 180-210 and diastolic readings over 100. Patient reports that when her blood pressure readings are elevated she becomes very anxious and concerned that she is going to have a stroke. Patient reports that she has no symptoms at this time other than mild headache which is common for her. She denies any other pain, shortness of breath, cough, diarrhea, numbness, weakness. Patient does report that she vomited once this morning, but she attributes this to anxiety and states this has happened to her before when she has anxiety. Patient report that this is not the worst headache of her life, she rates it as a 4 out of 10. Patient states only residual symptom from stroke 621 is intermittent weakness in her right arm, not currently occurring.Patient states that over the past 24 hours she has taken 3 of her lisinopril/hydrochlorothiazide but tabs and has taken 8 of her 50mg metoprolol tab without apparent change in her blood pressure. Patient reports that she has never had work-up for secondary hypertension, does not believe she has ever had ultrasound or other imaging of her kidneys. Patient states that she lives in [place]. She states that she came to [place] a few months ago with her boyfriend with the intention of going back to [place] within a month or 2, but her trip has been delayed for financial reasons. She reports that she lives in an apartment with her boyfriend. She states that prior to coming to [place] she was supposed to be seeing urology and nephrology for blood in her urine that had been ongoing for months, but did not end up seeing nephrology due to the trip here. Patient reports that she is supposed to be on medications for her sarcoidosis, but has not been on any meds for this for several months due to being in [place]. Patient states that her relationship with her boyfriend does contribute to her anxiety. She states that nobody is hurting her or threatening her that she feels safe at home and in her relationship. She denies self-harm or suicidal thoughts. Related Data Home Medications Medication Instructions Recorded Confirmed metoprolol tartrate 50 mg PO TID #60 tab 09/05/21 09/24/21 amlodipine 5 mg PO DAILY #30 tab 09/24/21 chlorthalidone 25 mg PO DAILY #30 tab 09/24/21 lisinopril 40 mg PO DAILY #30 tab 09/24/21 lorazepam [Ativan] 0.5 mg PO BID PRN #10 tab 09/24/21 Previous Rx's Medication Instructions Recorded metoprolol tartrate 50 mg PO TID #60 tab 09/05/21 amlodipine 5 mg PO DAILY #30 tab 09/24/21 chlorthalidone 25 mg PO DAILY #30 tab 09/24/21 lisinopril 40 mg PO DAILY #30 tab 02/02/22 lorazepam [Ativan] 0.5 mg PO BID PRN #10 tab 09/24/21 Allergies Allergy/AdvReac Type Severity Reaction Status Date / Time No Known Allergies Allergy Unverified 09/24/21 08:02 General Stated Complaint: Dizzy/Sync TARA: 3 Review of Systems Narrative: Constitutional: denies fevers Eyes: denies eye pain ENT: denies ear pain, dental pain, sore throat Cardiovascular: denies chest pain, edema Respiratory: denies SOB, cough GI: denies abdominal pain, diarrhea, reports vomiting : denies flank pain MSK: denies back pain, neck pain, arthralgias, myalgias Skin: denies rash Neuro: denies numbness, weakness, reports headache Psych: Reports anxiety, denies self-harm, suicidal thoughts PFSH All Active Problems (Updated 09/24/21 @ 10:45 by Katharina Pope MD) Anxiety (Chronic) Headache (Acute) Hypertension (Chronic) Headache (Acute) Hypertension (Chronic) Hematuria (Acute) Medical History Gout Sarcoidosis Stroke, hemorrhagic Surgical History History of lithotripsy Social History Smoking/Tobacco Use Status: Never Smoking risk assessment performed?: Yes Alcohol Intake: current Alcohol Intake frequency: holidays/special occasions only Drug use: Never Substance use type: does not use Do you feel safe at home: Yes Do you feel safe in your relationship?: Yes Exam Narrative Exam Narrative: Constitutional: well and [id number], anxious, pleasant, conversing normally HENT: head atraumatic/normocephalic/normal inspection, mucous membranes moist Eyes: conjunctiva normal, sclera normal, pupils 3mm b/l equal round reactive to light and accommodation, extraocular movements intact without nystagmus Neck: no stridor, normal ROM, trachea midline Chest: normal inspection Resp: normal work of breathing, speaking in full sentences Cardio: normal rate, normal rhythm GI: abdomen soft, non-tender, non-distended Back: normal inspection, no rash Skin: warm, dry, normal color, no rash Neuro: alert, not altered, cranial nerves II through XII intact, motor 5-5 throughout, no pronator drift, normal tone Ext: no edema no posterior calf tenderness to palpation Psych: Anxious mood, normal affect, normal behavior Course Vital Signs Vital signs: Vital Signs Respiratory Rate 14 09/24/21 07:59 Temperature 36.4 C L 09/24/21 08:05 Temperature Source Temporal Artery Scan 09/24/21 08:05 Pulse 61 09/24/21 08:05 Respiratory Rate 18 09/24/21 08:05 Respiratory Effort Non-Labored 09/24/21 08:03 Respiratory Depth Normal 09/24/21 08:03 Respiratory Pattern Normal 09/24/21 08:03 Blood Pressure 185/103 H 09/24/21 08:05 Pulse Oximetry 100 09/24/21 08:05 Oxygen Delivery Method Room Air 09/24/21 08:05 Oxygen Flow Rate 0 09/24/21 08:05 Pain Level 6 09/24/21 07:59
[2021-09-24 08:56] LABS: Abs Immature Grans 0.02 10^3/uL (0.0-0.06); Absolute Basophil Count 0.04 10^3/uL (0.0-0.2); Absolute Eosinophil Count 0.18 10^3/uL (0.0-0.7); Absolute Lymphocyte Count 0.84 10^3/uL (1.2-3.4); Absolute Monocyte Count 0.38 10^3/uL (0.1-0.8); Absolute Neutrophil Count 4.03 10^3/uL (1.2-6.7); Basophils % 0.7; Eosinophils % 3.3; HCT 39.2 % (36.0-46.0); HGB 12.8 g/dL (11.2-15.7); Immature Grans % 0.4; Lymphocytes % 15.3; MCHC 32.7 % (32.0-36.0); MCV 88.9 fL (80-95); MPV 9.2 fL (8.0-11.0); Monocytes % 6.9; Neutrophils % 73.4; Nucleated RBC 0 %; Platelet Count 181 10^3/uL (130-400); RBC 4.41 10^6/uL (3.93-5.22); RDW 13.5 % (11.7-14.6); RDW-SD 43.1 fL; WBC 5.49 10^3/uL (4.4-10.8)
[2021-09-24] MEDS: Chlorthalidone 25 MG TAB PO (09:01)
[2021-09-24] MEDS: Lisinopril 20 MG TAB 40 MG PO (09:02)
[2021-09-24] MEDS: amLODIPine 5 MG TAB PO (09:02)
[2021-09-24] MEDS: LORazepam 2 MG/ML VIAL 1 MG IVP (09:02)
[2021-09-24 09:10] LABS: ALT 20 U/L (14-59); AST 19 U/L (15-37); Albumin 3.9 g/dL (3.4-5.0); Alkaline Phosphatase 57 U/L (46-116); Anion Gap 8.6 mmol/L (3-11); BUN 16 mg/dL (7-18); Bilirubin, Total 0.6 mg/dL (0.2-1.0); CO2 31.4 mmol/L (21.0-32.0); Calcium 9.2 mg/dL (8.5-10.1); Chloride 97 mmol/L (98-107); Estimated GFR 59.69 (mL/min/1.73m2); Glucose 161 mg/dL (74-106); Potassium 3.4 mmol/L (3.5-5.1); Sodium 137 mmol/L (136-145); Total Protein 7.9 g/dL (6.4-8.2)
[2021-09-24 10:05] LABS: Bilirubin Negative (Negative); Blood Trace-intact (Negative); Clarity Clear (Clear); Glucose Negative (Negative); Ketones Negative (Negative); Leukocyte Esterase Small (Negative); Nitrite Negative (Negative); Urobilinogen 0.2 EU/dL (Up TO 0.2)
[2021-09-24 10:35] LABS: Bacteria Few HPF (Negative); Crystals Negative HPF (Negative); Epithelial Cells Rare HPF (Negative); Mucus Negative (Negative); Other Cells Negative (Negative); RBC 0-2 HPF (0-2)
[2021-09-24 10:36] LABS: C & S Indicated? No; Casts Negative LPF (Negative)
--- NOTE | 2021-09-24 11:24 | NUR.NOTE ---
Nursing Note: referral to cm and urology for follow up
== END 2021-09-24 10:58 | disposition home or self-care (01) ==
PROVIDERS: Emergency Provider Student in an Organized Health Care Education/Training Program; PCP Nurse Practitioner Family
DX: I10 Essential (primary) hypertension (principal); R31.9 Hematuria, unspecified; F41.9 Anxiety disorder, unspecified; R42 Dizziness and giddiness
CPT/HCPCS: 36415; 80053; 81025; 93005; 96374; 99284; 81003; 81015; 85025; 93010; 99283; J2060

== ENCOUNTER 2021-09-25 07:58 | Emergency (ER) | payer BC, SELFPAY ==
[2021-09-25 08:05] VITALS: BP 167/92; PULSE 67; RESP 18; TEMP 36.6; O2SAT 96
--- NOTE | 2021-09-25 08:15 | W.ED.GENAD ---
Discharge Plan Disposition Patient Disposition: HOME Condition: Stable Discharge Details Clinical Impression: Hypertension Primary Care Provider: COURTNEY DIOR ED Provider: Jennifer Gabriel Home Meds and New Rx's Prescriptions: Continued metoprolol tartrate 50 mg tablet 50 mg PO TID Qty: 60 RF: 0 lisinopril 40 mg tablet 40 mg PO DAILY Qty: 30 RF: 0 chlorthalidone 25 mg tablet 25 mg PO DAILY Qty: 30 RF: 0 amlodipine 5 mg tablet 5 mg PO DAILY Qty: 30 RF: 0 lorazepam [Ativan] 0.5 mg tablet 0.5 mg PO BID PRN (Reason: anxiety) Qty: 10 RF: 0 Discharge Instructions Instructions: Hypertension (ED) Additional Instructions: Continue monitoring your blood pressure at the same time every day. Please return for any worsening headache or concerns. Please keep your previously scheduled PCP appointment on the . Follow up with primary care provider in 3-5 days. Return to ED sooner if any worsening or concerns. Increase oral fluids. Referrals: COURTNEY DIOR, CHEMICAL [employer]ECTION EXPERT [Primary Care Provider] - 1 week Medical Decision Making 46-year-old female presents to the ER for recheck of her blood pressure in the ER yesterday. Patient had her blood pressure medication changed. She denies any headache her blood pressure today is 167/92 which is improved from her previous visit. She denies any other associated symptoms. She does have a PCP appointment on October 01 I did encourage her to keep that. I also instructed her to return if any returning symptoms, headache or any concerns. Patient verbalized understanding HPI General Mode of arrival: ambulatory. Date/Time Provider Initiated Documentation: 09/25/21 08:00. Limitations to Documentation: no limitations. Information obtained by: patient, RN notes reviewed and old records reviewed. HPI Narrative: 46-year-old female presents to the ER for recheck of her blood pressure in the ER yesterday. Patient had her blood pressure medication changed. She denies any headache her blood pressure today is 167/92 which is improved from her previous visit. She denies any other associated symptoms. She does have a PCP appointment on October 01 I did encourage her to keep that. I also instructed her to return if any returning symptoms, headache or any concerns. Patient verbalized understanding Related Data Home Medications Medication Instructions Recorded Confirmed metoprolol tartrate 50 mg PO TID #60 tab 09/05/21 09/25/21 amlodipine 5 mg PO DAILY #30 tab 09/24/21 09/25/21 chlorthalidone 25 mg PO DAILY #30 tab 09/24/21 09/25/21 lisinopril 40 mg PO DAILY #30 tab 09/24/21 09/25/21 lorazepam [Ativan] 0.5 mg PO BID PRN #10 tab 09/24/21 09/25/21 Previous Rx's Medication Instructions Recorded metoprolol tartrate 50 mg PO TID #60 tab 09/05/21 amlodipine 5 mg PO DAILY #30 tab 09/24/21 chlorthalidone 25 mg PO DAILY #30 tab 09/24/21 lisinopril 40 mg PO DAILY #30 tab 09/24/21 lorazepam [Ativan] 0.5 mg PO BID PRN #10 tab 09/24/21 Allergies Allergy/AdvReac Type Severity Reaction Status Date / Time No Known Allergies Allergy Unverified 09/25/21 08:10 General Stated Complaint: Recheck TARA: 4 Review of Systems Constitutional Constitutional: Denies headache(s) ENT Ears, Nose, Mouth, and Throat: Denies headache(s) Cardiovascular Cardiovascular: Denies chest pain, Denies radiating jaw, neck or arm pain and Denies dyspnea Respiratory Respiratory: Denies dyspnea Neurologic Neurologic: Denies headache(s) PFSH All Active Problems (Updated 09/25/21 @ 08:18 by Jennifer Gabriel) Anxiety (Chronic) Headache (Acute) Hypertension (Chronic) Headache (Acute) Hypertension (Chronic) Hematuria (Acute) Medical History Gout Sarcoidosis Stroke, hemorrhagic Surgical History History of lithotripsy Social History Smoking/Tobacco Use Status: Never Smoking risk assessment performed?: Yes Alcohol Intake: current Alcohol Intake frequency: holidays/special occasions only Drug use: Never Substance use type: does not use Do you feel safe at home: Yes Do you feel safe in your relationship?: Yes Exam Narrative Exam Narrative: Constitutional: Alert and oriented x3. Appears stated age. Normal body habitus. Head: Normocephalic, no trauma. Eyes: Pupils PERRL, Red reflex noted, EOM's intact. Eyelids symmetrical without lesions, discharge, or swelling. ENT: Bilateral TM's WNL, External ear normal to inspection, no mastoid TTP, swelling, or erythema, Nasal turbinates WNL, no nasal discharge. Normal dentition, Posterior pharynx WNL, no exudate. Chest: RRR, Normal S1, S2, distal pulses intact. Resp: Lungs clear to auscultation bilaterally, no wheezes, rales, or rhonchi. Abdomen: Soft, non-distended, Normoactive bowel sounds all 4 quads. Musculoskeletal: Normal gait, 5/5 strength to all four extremities. Skin: No suspicious rashes or lesions. Capillary refill less than 2 sec. Neurologic: Cranial nerves II-XII intact. Alert and oriented x 3. Motor: No deficits noted. Sensory: Intact bilaterally all 4 extremities. Reflexes: DTR's intact bilaterally.. Hematologic/Lymphatic: No ecchymosis, no lymphadenopathy. Course Vital Signs Vital signs: Vital Signs Temperature 36.6 C 09/25/21 08:05 Pulse 67 09/25/21 08:05 Respiratory Rate 18 09/25/21 08:05 Blood Pressure 167/92 H 09/25/21 08:05 Pulse Oximetry 96 09/25/21 08:05 Temperature 36.6 C 09/25/21 08:05 Temperature Source Temporal Artery Scan 09/25/21 08:05 Pulse 67 09/25/21 08:05 Respiratory Rate 18 09/25/21 08:05 Respiratory Effort Non-Labored 09/25/21 08:10 Blood Pressure 167/92 H 09/25/21 08:05 Blood Pressure Position Sitting 09/25/21 08:05 Pulse Oximetry 96 09/25/21 08:05 Oxygen Delivery Method Room Air 09/25/21 08:05 Oxygen Flow Rate 0 09/25/21 08:05
== END 2021-09-25 08:38 | disposition home or self-care (01) ==
PROVIDERS: Emergency Provider Registered Nurse Emergency; PCP Nurse Practitioner Family
DX: I10 Essential (primary) hypertension (principal)
CPT/HCPCS: 99281

== ENCOUNTER 2021-10-01 15:10 | Outpatient (REF) | payer BC, SELFPAY ==
[2021-10-01 15:19] LABS: ALT 22 U/L (14-59); AST 13 U/L (15-37); Albumin 3.6 g/dL (3.4-5.0); Alkaline Phosphatase 51 U/L (46-116); Anion Gap 9.4 mmol/L (3-11); BUN 20 mg/dL (7-18); Bilirubin, Total 0.3 mg/dL (0.2-1.0); CO2 28.6 mmol/L (21.0-32.0); Calcium 9.2 mg/dL (8.5-10.1); Chloride 101 mmol/L (98-107); Estimated GFR 59.69 (mL/min/1.73m2); Glucose 143 mg/dL (74-106); Potassium 3.6 mmol/L (3.5-5.1); Sodium 139 mmol/L (136-145); TSH 1.46 uIU/mL (0.36-3.74); Total Protein 7.1 g/dL (6.4-8.2)
== END 2021-10-01 15:11 | disposition home or self-care (01) ==
LOC: NCHCN 15:10
PROVIDERS: PCP Nurse Practitioner Family; Visit Provider Nurse Practitioner Family
DX: F41.9 Anxiety disorder, unspecified (principal); I10 Essential (primary) hypertension; D86.9 Sarcoidosis, unspecified; Z02.89 Encounter for other administrative examinations
CPT/HCPCS: 80053; 84443

== ENCOUNTER 2021-10-25 16:32 | Emergency (ER) | payer BC, SELFPAY ==
[2021-10-25 16:39] VITALS: BP 118/73; PULSE 86; RESP 16; TEMP 36.6; O2SAT 97
--- NOTE | 2021-10-25 17:00 | DI.US_ITS ---
Exam(s) US PELVIS TRANSVAGINAL EXAM: US PELVIS TRANSVAGINAL CLINICAL HISTORY: heavy vag bleed, pelvic pain, r/o torsion/fibroid TECHNIQUE: Ultrasound performed using standard protocol. COMPARISON: No exams were available for comparison FINDINGS: Pelvic ultrasound was performed transabdominally and transvaginally. Uterus measures 8.9 x 5.8 x 6.4 cm and contains an apparent midbody 5 cm in diameter fibroid. The th ere is tiny nabothian cyst. Endometrial stripe is about 2 millimeters in thickness and appears homogeneous. Left ovary measures 22 x 17 x 25 and is unremarkable in appearance. Right ovary measures 60 x 29 x 4 7 millimeters and contains 2 simple cysts, 1 measuring about 27 millimeters in diameter and the other measuring about 22 millimeters in diameter. Arterial and venous flow is observed in both ovaries. No free fluid in the cul-de-sac. Limited scanning of the kidneys was obtained and shows an apparent left midpole renal calculus, confirmed by posterior acoustic shadowing and twinkle artifact. The sto ne measures about 13 millimeters in diameter. IMPRESSION: Right ovarian simple cysts, presumably functional. No other specific findings. DATA REPOSITORY:
--- NOTE | 2021-10-25 17:03 | W.ED.GENAD ---
Discharge Plan Disposition Patient Disposition: HOME Condition: Stable Discharge Details Clinical Impression: Dysfunctional uterine bleeding, Uterine fibroid Primary Care Provider: COURTNEY DIOR ED Provider: Michelle Gooden Home Meds and New Rx's Prescriptions: Continued amlodipine 5 mg tablet 5 mg PO DAILY Qty: 30 0RF lorazepam [Ativan] 0.5 mg tablet 0.5 mg PO BID PRN (Reason: anxiety) Qty: 10 0RF omeprazole 20 mg capsule,delayed release(DR/EC) 20 mg PO DAILY 0RF Label Comments: Take 1 capsule by mouth once a day quetiapine [Seroquel] 50 mg tablet 50 mg PO DAILY 0RF Label Comments: 1 tablet by mouth once a day chlorthalidone 25 mg tablet 12.5 mg PO DAILY 0RF metoprolol tartrate 50 mg tablet 25 mg PO BID 0RF lisinopril 40 mg tablet 30 mg PO DAILY 0RF Discharge Instructions Instructions: Abnormal (Dysfunctional) Uterine Bleeding (ED) Additional Instructions: Your lab work today is reassuring but does note that your hemoglobin is slightly low at 10.6. Your potassium was also low at 3.0. You were given potassium here today but you can also supplement it in your diet with foods such as bananas, spinach, tomatoes, etc. Your ultrasound noted a uterine fibroid which is likely the source of your pain. Drink plenty of fluids and get plenty of rest. Alternate tylenol and motrin as needed and directed for pain. Called [facility] on Wednesday morning to confirm a follow-up appointment for this week. Return immediately to the emergency department if you develop any worsening or new concerning symptoms. Referrals: [facility] [place] [Provider Group] Discharge Data Discharge Physician: Michelle Gooden Medical Decision Making 46-year-old female with a history of obesity, hypertension who presents with heavy vaginal bleeding and abdominal pain for the past 24 days. Vitals within normal limits. Abdomen is soft and minimally tender in the right mid abdomen. No right lower quadrant tenderness or rebound, guarding or rigidity. Patient referred for labs and pelvic ultrasound. White blood cell count 5. Potassium 3, will replete. Urinalysis notes large blood but appears contaminated. Bedside pelvic ultrasound done which noted mild bleeding. Pelvic ultrasound noted fibroid. Discussed with patient that her symptoms could be due to fibroids, or imbalance in hormonal cycle and is recommended that she follows up with [facility] for further evaluation and consideration for additional procedures, control etc. Advised to follow up with the primary care doctor for re-evaluation. Usual and customary return precautions given prior to discharge. Medical Records Medical records reviewed: Yes I reviewed the patient's medical records. Imaging Data Radiologic Study: Radiologist's impression: US Pelvis Complete, Transabdominal and US Pelvis, Transvaginal and US Duplex Artery and Vein, Ovaries, Complete Exam date and time: 10/25/2021 5:03 PM Age: 46 years old Clinical indication: Vaginal pain TECHNIQUE: Imaging protocol: Real-time transabdominal and transvaginal pelvic ultrasound (complete) with image documentation. Transvaginal imaging was used for better evaluation of the endometrium, adnexa, and/or cervix. Real-time duplex ultrasound scan of the arterial and venous flow of the ovaries with B-mode, color Doppler flow and spectral waveform analysis. COMPARISON: No relevant prior studies available. FINDINGS: Uterus: Uterus measures 8.9 x 5.8 x 6.4 cm. Area of mixed echogenicity noted with the uterus and may represent a fibroid. Endometrium measures 1.8 cm. Right ovary/adnexa: Right ovary measures 6.0 x 2.9 x 4.7 cm. No evidence of ovarian torsion. Right ovarian cysts are present. Left ovary/adnexa: Left ovary measures 2.2 x 1.7 x 2.4 cm. Intraperitoneal space: No intraperitoneal fluid. Urinary bladder: Normal. Vasculature: Blood flow is demonstrated to both ovaries. IMPRESSION: 1. Area of mixed echogenicity noted with the uterus and may represent a fibroid. 2. No evidence of ovarian torsion. 3. Right ovarian cysts are present. Lab Data Lab results reviewed: Yes I reviewed the patient's lab results. Labs: Laboratory Tests Range/Units 10/25/21 10/25/21 10/25/21 17:15 17:15 18:10 WBC (4.4-10.8) 10^3/uL 5.02 RBC (3.93-5.22) 10^6/uL 3.49 L Hgb (11.2-15.7) g/dL 10.6 L Hct (36.0-46.0) % 31.3 L MCV (80-95) fL 89.7 MCH (27.0-33.0) pg 30.4 MCHC (32.0-36.0) % 33.9 RDW (11.7-14.6) % 14.4 Plt Count (130-400) 10^3/uL 187 MPV (8.0-11.0) fL 9.3 Immature Gran % 0.4 Neutrophils % 62.3 Lymphocytes % 24.1 Monocytes % 8.2 Eosinophils % 4.4 Basophils % 0.6 Nucleated RBC % % 0 Absolute Neutrophils (1.2-6.7) 10^3/uL 3.13 Absolute Lymphocytes (1.2-3.4) 10^3/uL 1.21 Absolute Monocytes (0.1-0.8) 10^3/uL 0.41 Absolute Eosinophils (0.0-0.7) 10^3/uL 0.22 Absolute Basophils (0.0-0.2) 10^3/uL 0.03 Sodium (136-145) mmol/L 140 Potassium (3.5-5.1) mmol/L 3.0 L Chloride (98-107) mmol/L 103 Carbon Dioxide (21.0-32.0) mmol/L 28.2 Anion Gap (3-11) mmol/L 8.8 BUN (7-18) mg/dL 20 H Creatinine (0.55-1.02) mg/dL 1.1 H Estimated GFR/1.73 m2 (mL/min/1.73m2) 53.47 Glucose (74-106) mg/dL 138 H Calcium (8.5-10.1) mg/dL 8.9 Total Bilirubin (0.2-1.0) mg/dL 0.4 AST (15-37) U/L 16 ALT (14-59) U/L 17 Alkaline Phosphatase (46-116) U/L 51 Total Protein (6.4-8.2) g/dL 6.9 Albumin (3.4-5.0) g/dL 3.6 Urine Color (Yellow) Yellow Urine Clarity (Clear) Clear Urine pH (5-8) 5.5 Ur Specific [place] (1.005-1.025) >= 1.030 H Urine Protein (Negative) mg/dL 30 H Urine Ketones (Negative) mg/dL Negative Urine Blood (Negative) Large H Urine Nitrite (Negative) Negative Urine Bilirubin (Negative) Negative Urine Urobilinogen (Up TO 0.2) EU/dL 0.2 Ur Leukocyte Esterase (Negative) Small H Urine RBC (0-2) HPF >50 H Urine WBC (0-5) HPF >50 H Ur Epithelial Cells (Negative) HPF Many Urine Crystals (Negative) HPF Negative Urine Bacteria (Negative) HPF Moderate Urine Casts (Negative) LPF Negative Urine Mucus (Negative) Negative Ur Culture Indicated? No/Sq. Contamination Urine Glucose (Negative) mg/dL Negative HPI General Mode of arrival: ambulatory. Date/Time Provider Initiated Documentation: 10/25/21 16:47. Limitations to Documentation: no limitations. Information obtained by: patient. HPI Narrative: Patient is a 46-year-old female with history of hypertension and obesity presents with almost 1 month of heavy vaginal bleeding and right-sided abdominal pain. She states she has seen her local primary doctor for the symptoms and referred to [facility]. She states a few days ago she was mopping and felt a pop and had sudden onset of worsening vaginal bleeding. She states she goes through a box of 30+ pads within 2 days. She states she has had heavy vaginal bleeding with clots. She describes the right-sided abdominal pain as cramping and occasionally sharp. She denies any fever, nausea, vomiting, diarrhea, urinary symptoms. She states she has taken Aleve and ibuprofen for pain with some relief. Related Data Home Medications Medication Instructions Recorded Confirmed amlodipine 5 mg tablet 5 mg PO DAILY #30 tab 09/24/21 10/25/21 lorazepam 0.5 mg tablet (Ativan) 0.5 mg PO BID PRN #10 tab 09/24/21 10/25/21 chlorthalidone 25 mg tablet 12.5 mg PO DAILY 10/25/21 10/25/21 lisinopril 40 mg tablet 30 mg PO DAILY 10/25/21 10/25/21 metoprolol tartrate 50 mg tablet 25 mg PO BID 10/25/21 10/25/21 omeprazole 20 mg capsule,delayed 20 mg PO DAILY 10/25/21 10/25/21 release quetiapine 50 mg tablet (Seroquel) 50 mg PO DAILY 10/25/21 10/25/21 Previous Rx's Medication Instructions Recorded amlodipine 5 mg tablet 5 mg PO DAILY #30 tab 09/24/21 lorazepam 0.5 mg tablet (Ativan) 0.5 mg PO BID PRN #10 tab 09/24/21 Allergies Allergy/AdvReac Type Severity Reaction Status Date / Time hayfever Allergy Uncoded 10/25/21 16:45 General Stated Complaint: HEARING CARE PRACTITIONER TARA: 3 Review of Systems All systems reviewed & are unremarkable except as noted in HPI and below Constitutional Constitutional: Reports as per HPI, Denies chills and Denies fever(s) Eyes Eyes: Denies blurry vision ENT Ears, Nose, Mouth, and Throat: Denies dizziness, Denies sore throat and Denies throat swelling Cardiovascular Cardiovascular: Denies chest pain and Denies dyspnea Respiratory Respiratory: Denies cough and Denies dyspnea Gastrointestinal Gastrointestinal: Denies abdominal pain, Denies diarrhea and Denies vomiting Genitourinary Genitourinary: Denies hematuria, Denies dysuria and Reports other (vaginal bleeding) Musculoskeletal Musculoskeletal: Denies back pain and Denies numbness Integumentary/Breasts Skin/Breast: Denies lesions and Denies rash Neurologic Neurologic: Denies dizziness, Denies localized weakness and Denies numbness Allergic/Immunologic Allergic/Immunologic: Denies throat swelling PFSH All Active Problems (Updated 10/25/21 @ 19:33 by Michelle Gooden DO) Anxiety (Chronic) Headache (Acute) Hypertension (Chronic) Dysfunctional uterine bleeding (Acute) Uterine fibroid (Acute) Medical History Gout Sarcoidosis Stroke, hemorrhagic Surgical History History of lithotripsy Social History Smoking/Tobacco Use Status: Never Smoking risk assessment performed?: Yes Alcohol Intake: current Alcohol Intake frequency: holidays/special occasions only Drug use: Never Substance use type: does not use Do you feel safe at home: Yes Do you feel safe in your relationship?: Yes Exam Const General: cooperative and no acute distress Orientation: alert, awake and oriented x3 HENMT Head: normal to inspection Mouth: oral mucosae normal Eyes General: appearance normal, both eyes and all related structures Neck Neck: normal visual inspection Resp Effort & Inspection: normal respiratory effort and able to speak in complete sentences Auscultation: clear to auscultation bilaterally Cardio Rate: regular rate Rhythm: regular rhythm GI Inspection: obesity Palpation: soft, not firm, no guarding, not rigid and tender in the RLQ Auscultation: hypoactive bowel sounds Skin General skin exam: no rashes or lesions noted Neuro General: patient alert, patient awake and patient oriented x3 Motor: muscle tone normal throughout Extrem General: normal to inspection and full ROM Psych Appearance: grossly normal Affect: normal affect Course Vital Signs Vital signs: Vital Signs Temperature 97.9 F 10/25/21 16:39 Pulse 86 10/25/21 16:39 Respiratory Rate 16 10/25/21 16:39 Blood Pressure 118/73 10/25/21 16:39 Pulse Oximetry 97 10/25/21 16:39 Temperature 97.9 F 10/25/21 16:39 Temperature Source Skin 10/25/21 16:39 Pulse 86 10/25/21 16:39 Respiratory Rate 16 10/25/21 16:39 Respiratory Effort 10/25/21 16:39 Blood Pressure 118/73 10/25/21 16:39 Blood Pressure Position Sitting 10/25/21 16:39 Pulse Oximetry 97 10/25/21 16:39 Oxygen Delivery Method Room Air 10/25/21 16:39 Oxygen Flow Rate 0 10/25/21 16:39 Pain Level 9 10/25/21 16:39
[2021-10-25 17:25] LABS: Abs Immature Grans 0.02 10^3/uL (0.0-0.06); Absolute Basophil Count 0.03 10^3/uL (0.0-0.2); Absolute Eosinophil Count 0.22 10^3/uL (0.0-0.7); Absolute Lymphocyte Count 1.21 10^3/uL (1.2-3.4); Absolute Monocyte Count 0.41 10^3/uL (0.1-0.8); Absolute Neutrophil Count 3.13 10^3/uL (1.2-6.7); Basophils % 0.6; Eosinophils % 4.4; HCT 31.3 % (36.0-46.0); HGB 10.6 g/dL (11.2-15.7); Immature Grans % 0.4; Lymphocytes % 24.1; MCH 30.4 pg (27.0-33.0); MCHC 33.9 % (32.0-36.0); MCV 89.7 fL (80-95); MPV 9.3 fL (8.0-11.0); Monocytes % 8.2; Neutrophils % 62.3; Nucleated RBC 0 %; Platelet Count 187 10^3/uL (130-400); RBC 3.49 10^6/uL (3.93-5.22); RDW 14.4 % (11.7-14.6); RDW-SD 46.2 fL; WBC 5.02 10^3/uL (4.4-10.8)
[2021-10-25 17:28] VITALS: BP 119/95; PULSE 81; RESP 14; TEMP 37.1; O2SAT 96
[2021-10-25 17:46] LABS: ALT 17 U/L (14-59); AST 16 U/L (15-37); Albumin 3.6 g/dL (3.4-5.0); Alkaline Phosphatase 51 U/L (46-116); Anion Gap 8.8 mmol/L (3-11); BUN 20 mg/dL (7-18); Bilirubin, Total 0.4 mg/dL (0.2-1.0); CO2 28.2 mmol/L (21.0-32.0); CREATININE 1.1 mg/dL (0.55-1.02); Calcium 8.9 mg/dL (8.5-10.1); Chloride 103 mmol/L (98-107); Estimated GFR 53.47 (mL/min/1.73m2); Glucose 138 mg/dL (74-106); Sodium 140 mmol/L (136-145); Total Protein 6.9 g/dL (6.4-8.2)
[2021-10-25 18:16] LABS: Bilirubin Negative (Negative); Blood Large (Negative); Clarity Clear (Clear); Glucose Negative (Negative); Ketones Negative (Negative); Leukocyte Esterase Small (Negative); Nitrite Negative (Negative); Specific Gravity >= 1.030 (1.005-1.025); Urobilinogen 0.2 EU/dL (Up TO 0.2); pH 5.5 (5-8)
[2021-10-25 18:36] LABS: Bacteria Moderate HPF (Negative); C & S Indicated? No/Sq. Contamination; Casts Negative LPF (Negative); Crystals Negative HPF (Negative); Epithelial Cells Many HPF (Negative); Mucus Negative (Negative); RBC >50 HPF (0-2); WBC >50 HPF (0-5)
[2021-10-25 18:46] VITALS: BP 143/88; PULSE 95
[2021-10-25 18:55] VITALS: O2SAT 96
[2021-10-25 19:00] VITALS: BP 126/66; PULSE 69; O2SAT 97
[2021-10-25 19:01] VITALS: O2SAT 96
[2021-10-25] MEDS: Ketorolac 15 MG/ML VIAL IVP (19:15)
[2021-10-25] MEDS: Normal Saline 500 ML IV (19:16)
--- NOTE | 2021-10-25 19:27 | DI.VRAD_ITS ---
PROCEDURE INFORMATION: Exam: US Pelvis Complete, Transabdominal and US Pelvis, Transvaginal and US Duplex Artery and Vein, Ovaries, Complete Exam date and time: 10/25/2021 5:03 PM Age: 46 years old Clinical indication: Vaginal pain TECHNIQUE: Imaging protocol: Real-time transabdominal and transvaginal pelvic ultrasound (complete) with image documentation. Transvaginal imaging was used for better evaluation of the endometrium, adnexa, and/or cervix. Real-time duplex ultrasound scan of the arterial and venous flow of the ovaries with B-mode, color Doppler flow and spectral waveform analysis. COMPARISON: No relevant prior studies available. FINDINGS: Uterus: Uterus measures 8.9 x 5.8 x 6.4 cm. Area of mixed echogenicity noted with the uterus and may represent a fibroid. Endometrium measures 1.8 cm. Right ovary/adnexa: Right ovary measures 6.0 x 2.9 x 4.7 cm. No evidence of ovarian torsion. Right ovarian cysts are present. Left ovary/adnexa: Left ovary measures 2.2 x 1.7 x 2.4 cm. Intraperitoneal space: No intraperitoneal fluid. Urinary bladder: Normal. Vasculature: Blood flow is demonstrated to both ovaries. IMPRESSION: 1. Area of mixed echogenicity noted with the uterus and may represent a fibroid. 2. No evidence of ovarian torsion. 3. Right ovarian cysts are present. Dictated and Authenticated by: Rey Sampson MD. Ordering:CHARLY Martinez MD
[2021-10-25] MEDS: Potassium Chloride 20 MEQ TABCR 40 MEQ PO (19:38)
== END 2021-10-25 19:42 | disposition home or self-care (01) ==
PROVIDERS: Emergency Provider Physician Assistant; PCP Nurse Practitioner Family
DX: N93.8 Other specified abnormal uterine and vaginal bleeding (principal); D25.9 Leiomyoma of uterus, unspecified; E87.6 Hypokalemia
CPT/HCPCS: 36415; 80053; 96374; 99284; 76830; 76856; 81003; 81015; 85025; 99283; J1885

== ENCOUNTER 2021-10-28 17:03 | Emergency (ER) | payer BC, SELFPAY ==
[2021-10-28] VITALS (17 sets, daily range): BP systolic 99–140; BP diastolic 58–93; PULSE 84–105; RESP 14–28; TEMP 36.6; O2SAT 94–100
--- NOTE | 2021-10-28 17:00 | RT.EKG_ITS ---
APPROVED REPORT Exam: Resting ECG Reason for Exam: syncopal Patient Location: E HR:90 bpm ECG Measurements Heart Rate 90 AXIS DE 152 P 14 QRSd 112 QRS -22 QT 394 T 44 QTc 484 Conclusion Sinus rhythm...normal P axis, V-rate 60- 99
[2021-10-28 17:59] LABS: Abs Immature Grans 0.02 10^3/uL (0.0-0.06); Absolute Basophil Count 0.03 10^3/uL (0.0-0.2); Absolute Eosinophil Count 0.19 10^3/uL (0.0-0.7); Absolute Lymphocyte Count 1.21 10^3/uL (1.2-3.4); Absolute Monocyte Count 0.43 10^3/uL (0.1-0.8); Absolute Neutrophil Count 3.63 10^3/uL (1.2-6.7); Basophils % 0.5; Eosinophils % 3.4; HGB 10.1 g/dL (11.2-15.7); Immature Grans % 0.4; MCH 30.5 pg (27.0-33.0); MCHC 33.7 % (32.0-36.0); MCV 90.6 fL (80-95); MPV 9.3 fL (8.0-11.0); Monocytes % 7.8; Neutrophils % 65.9; Nucleated RBC 0 %; Platelet Count 180 10^3/uL (130-400); RBC 3.31 10^6/uL (3.93-5.22); RDW 14.7 % (11.7-14.6); RDW-SD 47.6 fL; WBC 5.51 10^3/uL (4.4-10.8)
[2021-10-28 18:06] LABS: ALT 20 U/L (14-59); AST 20 U/L (15-37); Albumin 3.4 g/dL (3.4-5.0); Alkaline Phosphatase 49 U/L (46-116); Anion Gap 7.8 mmol/L (3-11); BUN 14 mg/dL (7-18); Bilirubin, Total 0.2 mg/dL (0.2-1.0); CO2 28.2 mmol/L (21.0-32.0); CREATININE 1.1 mg/dL (0.55-1.02); Calcium 8.7 mg/dL (8.5-10.1); Chloride 99 mmol/L (98-107); Estimated GFR 53.47 (mL/min/1.73m2); Glucose 145 mg/dL (74-106); Sodium 135 mmol/L (136-145); Total Protein 7.1 g/dL (6.4-8.2)
[2021-10-28 18:07] LABS: Potassium 2.8 mmol/L (3.5-5.1)
--- NOTE | 2021-10-28 18:09 | ED.GENADUL_ITS ---
Discharge Plan Disposition Patient Disposition: HOME Condition: Stable Discharge Details Clinical Impression: Abnormal vaginal bleeding, Hypokalemia Primary Care Provider: COURTNEY DIOR ED Provider: Obdulio Benjamin Home Meds and New Rx's Prescriptions: New potassium chloride 20 mEq tablet extended release 20 meq PO BID Qty: 30 0RF Continued amlodipine 5 mg tablet 5 mg PO DAILY Qty: 30 0RF lorazepam [Ativan] 0.5 mg tablet 0.5 mg PO BID PRN (Reason: anxiety) Qty: 10 0RF omeprazole 20 mg capsule,delayed release(DR/EC) 20 mg PO DAILY 0RF Label Comments: Take 1 capsule by mouth once a day quetiapine [Seroquel] 50 mg tablet 50 mg PO DAILY 0RF Label Comments: 1 tablet by mouth once a day chlorthalidone 25 mg tablet 12.5 mg PO DAILY 0RF metoprolol tartrate 50 mg tablet 25 mg PO BID 0RF lisinopril 40 mg tablet 30 mg PO DAILY 0RF No Action norethindrone acetate [Aygestin] 5 mg tablet 5 mg PO BID Qty: 60 2RF Discharge Instructions Additional Instructions: Follow up as scheduled with [facility] you are being started on provera to slow the bleeding you are also being started on potassium supplementation given your potassium today was low, which is likely related to your chlorthalidone. You should follow up with your primary care provider within 2 weeks to have a potassium level rechecked if you feel more ill, have severe worsening pain or worsening bleeding return to the emergency department Discharge Data Discharge Date/Time-TO BE ENTERED AT DEPARTURE: 10/28/21 21:48 Medical Decision Making <Josse Pope MD - Last Filed: 11/12/21 08:02> 1823 --46-year-old female with history of hypertension, here after syncopal episode, recently experiencing heavy daily vaginal bleeding since 10/01/2021. EKG was reviewed and interpreted by me: Please see report, nondiagnostic. Considered symptomatic anemia. Hemoglobin fairly stable at 10.1 compared to last lab on 10/25/2021 which was 10.6. This is decreased from her baseline of 12. Labs reviewed and potassium is low at 2.8. I will replete with 20 meq p.o. and 20 mEq IV. Plan to observe in the emergency department and recheck CBC and electrolytes. -- Pelvic exam reveals small blood in vaginal vault. No hemorrhage. -- I spoke with environmental engineering aide import export agent Dr. Davis -discussed ED presentation and course, she recommends starting Provera 5 mg twice daily. Does not feel transfusion is necessary at this time unless hemoglobin drops significantly or patient has hemorrhage. Patient will be signed out to Dr. Benjamin with plan to repeat hemoglobin and chemistry after potassium infusion. Follow-up reassessment and disposition pending at time of signout. 10/28/21 20:00 Josse Pope MD <Obdulio Benjamin MD - Last Filed: 10/28/21 21:42> 1823 --46-year-old female with history of hypertension, here after syncopal episode, recently experiencing heavy daily vaginal bleeding since 10/01/2021. EKG was reviewed and interpreted by me: Please see report, nondiagnostic. Considered symptomatic anemia. Hemoglobin fairly stable at 10.1 compared to [place] lab on 10/25/2021 which was 10.6. This is decreased from her baseline of 12. Labs reviewed and potassium is low at 2.8. I will replete with 20 meq p.o. and 20 mEq IV. Plan to observe in the emergency department and recheck CBC and electrolytes. -- Pelvic exam reveals small blood in vaginal vault. No hemorrhage. -- I spoke with environmental engineering aide import export agent Dr. Davis -discussed ED presentation and course, she recommends starting Provera 5 mg twice daily. Does not feel transfusion is necessary at this time unless hemoglobin drops significantly or patient has hemorrhage. Patient will be signed out to Dr. Benjamin with plan to repeat hemoglobin and chemistry after potassium infusion. Follow-up reassessment and disposition pending at time of signout. 10/28/21 20:00 Josse Pope MD 10/28 2129 K improved to 3.2 and hgb now 9.1. Pt is stable, not having any symptoms when standing and would prefer to go home than be observed here. Discussed with Dr. Davis and recommends continuing the provera and has f/u as an outpatient. Patient understands importance of returning if anything changes or worsens and importance of outpatient follow up. HPI <Josse Pope MD - Last Filed: 11/12/21 08:02> General Mode of arrival: ambulatory . Date/Time Provider Initiated Documentation: 10/28/21 17:06 . Limitations to Documentation: no limitations . Information obtained by: patient . HPI Narrative: 46-year-old female presents with chief complaint of syncope. Patient notes that she has had abnormal, at times heavy, daily vaginal bleeding since 10/01/2021. Patient states recently she is passing large clots and has required multiple pads per day. This afternoon she had an episode where she suddenly felt dizzy if she was going to pass out, she sat down and then did in fact have a syncopal episode. She did not fall or hit her head. Episode was brief but severe. No modifiers. No associated chest pain or shortness of breath. No leg swelling or calf pain. Related Data Home Medications Medication Instructions Recorded Confirmed amlodipine 5 mg tablet 5 mg PO DAILY #30 tab 09/24/21 10/28/21 lorazepam 0.5 mg tablet (Ativan) 0.5 mg PO BID PRN #10 tab 09/24/21 10/28/21 chlorthalidone 25 mg tablet 12.5 mg PO DAILY 10/25/21 10/28/21 lisinopril 40 mg tablet 30 mg PO DAILY 10/25/21 10/28/21 metoprolol tartrate 50 mg tablet 25 mg PO BID 10/25/21 10/28/21 omeprazole 20 mg capsule,delayed 20 mg PO DAILY 10/25/21 10/28/21 release quetiapine 50 mg tablet (Seroquel) 50 mg PO DAILY 10/25/21 10/28/21 potassium chloride 20 mEq 20 meq PO BID #30 tab 10/28/21 tablet,extended release norethindrone acetate 5 mg tablet 5 mg PO BID #60 tab 11/04/21 11/04/21 (Aygestin) Previous Rx's Medication Instructions Recorded amlodipine 5 mg tablet 5 mg PO DAILY #30 tab 09/24/21 lorazepam 0.5 mg tablet (Ativan) 0.5 mg PO BID PRN #10 tab 09/24/21 potassium chloride 20 mEq 20 meq PO BID #30 tab 10/28/21 tablet,extended release norethindrone acetate 5 mg tablet 5 mg PO BID #60 tab 11/04/21 (Aygestin) Allergies Allergy/AdvReac Type Severity Reaction Status Date / Time hayfever Allergy Uncoded 11/04/21 15:12 General Stated Complaint: Dizzy/Sync TARA: 3 Review of Systems <Josse Pope MD - Last Filed: 11/12/21 08:02> All systems reviewed & are unremarkable except as noted in HPI and below Constitutional Constitutional: Denies fever(s) Genitourinary Genitourinary: Reports as per HPI PFSH <Josse Pope MD - Last Filed: 11/12/21 08:02> All Active Problems Anxiety (Chronic) Headache (Acute) Hypertension (Chronic) Dysfunctional uterine bleeding (Acute) Uterine fibroid (Acute) Abnormal vaginal bleeding (Acute) Hypokalemia (Acute) Medical History Gout Sarcoidosis Stroke, hemorrhagic Surgical History History of lithotripsy Social History Smoking/Tobacco Use Status: Never Smoking risk assessment performed?: Yes Alcohol Intake: current Alcohol Intake frequency: holidays/special occasions only Drug use: Never Substance use type: does not use Do you feel safe at home: Yes Do you feel safe in your relationship?: Yes Exam <Josse Pope MD - Last Filed: 11/12/21 08:02> Const General: cooperative and no acute distress HENMT Mouth: moist mucous membranes Eyes Conjunctivae: normal conjunctivae Sclera: normal sclerae Neck Neck: trachea midline Resp Auscultation: clear to auscultation bilaterally, no rales, no rhonchi and no wheezes Cardio Rhythm: regular rhythm GI Palpation: soft, not firm, no guarding, no masses, not rigid and tender suprapubicly Speculum Exam - Vagina: no lacerations, vaginal bleeding and No tissue present in vagina Speculum Exam - Cervix: closed OB/External & Speculum: no tissue noted in vagina and vaginal bleeding Other: exam performed with female nurse fur vault attendant present Skin General skin exam: no rashes or lesions noted Neuro General: patient alert, patient awake, patient oriented x3 and tone normal Extrem General: no calf tenderness bilaterally and no edema Psych Appearance: grossly normal Mental Status: mental status grossly normal Speech and Movement: speech and movement normal Course <Josse Pope MD - Last Filed: 11/12/21 08:02> Vital Signs Vital signs: Vital Signs Temperature 36.6 C 10/28/21 17:08 Pulse 103 H 10/28/21 17:08 Respiratory Rate 18 10/28/21 17:08 Blood Pressure 140/81 10/28/21 17:08 Pulse Oximetry 99 10/28/21 17:08 Temperature 36.6 C 10/28/21 17:08 Temperature Source Temporal Artery Scan 10/28/21 17:08 Pulse 103 H 10/28/21 17:08 Respiratory Rate 18 10/28/21 17:08 Respiratory Effort Non-Labored 10/28/21 17:32 Respiratory Depth Normal 10/28/21 17:32 Respiratory Pattern Normal 10/28/21 17:32 Blood Pressure 140/81 10/28/21 17:08 Blood Pressure Position Standing 10/28/21 17:08 Pulse Oximetry 99 10/28/21 17:08 Oxygen Delivery Method Room Air 10/28/21 17:08 Oxygen Flow Rate 0 10/28/21 17:08 Lab/Test Results Lab/Test Results: Laboratory Tests Range/Units 10/28/21 10/28/21 10/28/21 17:35 17:35 17:35 WBC (4.4-10.8) 10^3/uL 5.51 RBC (3.93-5.22) 10^6/uL 3.31 L Hgb (11.2-15.7) g/dL 10.1 L Hct (36.0-46.0) % 30.0 L MCV (80-95) fL 90.6 MCH (27.0-33.0) pg 30.5 MCHC (32.0-36.0) % 33.7 RDW (11.7-14.6) % 14.7 H Plt Count (130-400) 10^3/uL 180 MPV (8.0-11.0) fL 9.3 Immature Gran % 0.4 Neutrophils % 65.9 Lymphocytes % 22.0 Monocytes % 7.8 Eosinophils % 3.4 Basophils % 0.5 Nucleated RBC % % 0 Absolute Neutrophils (1.2-6.7) 10^3/uL 3.63 Absolute Lymphocytes (1.2-3.4) 10^3/uL 1.21 Absolute Monocytes (0.1-0.8) 10^3/uL 0.43 Absolute Eosinophils (0.0-0.7) 10^3/uL 0.19 Absolute Basophils (0.0-0.2) 10^3/uL 0.03 Sodium (136-145) mmol/L 135 L Potassium (3.5-5.1) mmol/L 2.8 L* Chloride (98-107) mmol/L 99 Carbon Dioxide (21.0-32.0) mmol/L 28.2 Anion Gap (3-11) mmol/L 7.8 BUN (7-18) mg/dL 14 Creatinine (0.55-1.02) mg/dL 1.1 H Estimated GFR/1.73 m2 (mL/min/1.73m2) 53.47 Glucose (74-106) mg/dL 145 H Calcium (8.5-10.1) mg/dL 8.7 Total Bilirubin (0.2-1.0) mg/dL 0.2 AST (15-37) U/L 20 ALT (14-59) U/L 20 Alkaline Phosphatase (46-116) U/L 49 Total Protein (6.4-8.2) g/dL 7.1 Albumin (3.4-5.0) g/dL 3.4 Crossmatch See Detail Sign Out <Josse Pope MD - Last Filed: 11/12/21 08:02> Sign Out Data: Sign Out Comment: followup repeat chem and cbc. reassess patient for disposition. Last updated by Josse Pope MD at 10/28/21 20:00
[2021-10-28] MEDS: Potassium Chloride 20 MEQ TABCR PO (18:54)
[2021-10-28] MEDS: POTASSIUM CHLORIDE 20 MEQ/100 ML BAG 50 MEQ IVPB (18:55)
[2021-10-28] MEDS: medroxyPROGESTERone 5 MG TAB PO (20:04)
[2021-10-28] MEDS: Ketorolac 15 MG/ML VIAL IVP (21:16)
[2021-10-28 21:18] LABS: HCT 27.1 % (36.0-46.0); HGB 9.1 g/dL (11.2-15.7); MCH 29.9 pg (27.0-33.0); MCHC 33.6 % (32.0-36.0); MCV 89.1 fL (80-95); Platelet Count 165 10^3/uL (130-400); RBC 3.04 10^6/uL (3.93-5.22); RDW 14.6 % (11.7-14.6); RDW-SD 46.2 fL; WBC 5.29 10^3/uL (4.4-10.8)
[2021-10-28 21:28] LABS: Anion Gap 5.4 mmol/L (3-11); BUN 13 mg/dL (7-18); CO2 30.6 mmol/L (21.0-32.0); Calcium 8.6 mg/dL (8.5-10.1); Chloride 104 mmol/L (98-107); Estimated GFR 59.69 (mL/min/1.73m2); Glucose 130 mg/dL (74-106); Potassium 3.2 mmol/L (3.5-5.1); Sodium 140 mmol/L (136-145)
== END 2021-10-28 21:48 | disposition home or self-care (01) ==
PROVIDERS: Student in an Organized Health Care Education/Training Program; Emergency Provider Emergency Medicine; PCP Nurse Practitioner Family
DX: N93.8 Other specified abnormal uterine and vaginal bleeding (principal); E87.6 Hypokalemia; R55 Syncope and collapse; R10.2 Pelvic and perineal pain
CPT/HCPCS: 36415; 80048; 80053; 85027; 86850; 86900; 86901; 86920; 93005; 96365; 96366; 96375; 99284; 85025; 93010; J1885; J3480

== ENCOUNTER 2021-10-30 01:11 | Outpatient (CLI) | payer BC, SELFPAY ==
--- NOTE | 2021-10-30 09:15 | DI.US_ITS ---
Exam(s) US RENAL EXAM: US RENAL CLINICAL HISTORY: HEMATURIA, R31.9; SARCOIDOSIS, D86.9; HYPERTENSION, I10 TECHNIQUE: Ultrasound performed using standard protocol. COMPARISON: US US PELVIS TRANSVAGINAL from 10/25/2021 FINDINGS: Renal ultrasound was performed according to the usual protocol. Kidneys are normal in size and shape . No renal mass identified. Right kidney shows no evidence of hydronephrosis or nephrolithiasis. There is a 17 millimeter in diameter echogenic focus of the midpole of the left kidney with posterior acoustic shadowing and twinkle artifact, findings are consistent with a stone. There is no evidence of hydronephrosis on the left. There is a probable small parapelvic cyst. Urinary bladder is unremarkable in appearance with pre and postvoid urinary bladder volume measuremen ts 83 cc and 0 cc respectively. Left ureteral jet is visualized, right ureteral jet not visualized. IMPRESSION: Nonobstructing left nephrolithiasis. No other significant findings. DATA REPOSITORY:
--- NOTE | 2021-10-30 10:30 | DI.US_ITS ---
APPROVED REPORT EXAM: Comprehensive 2D, Doppler, and color-flow Echocardiogram Patient Location: Out-Patient [facility] Operator: Martha Jj RDCS (AE) Indications: HTN, Sarcoidosis Other Information Study Quality: Adequate Conclusion Mild concentric left ventricular hypertrophy. Normal left ventricular chamber size. EF is 55%. Wal l motion is normal The right ventricle is grossly normal in size and systolic function Both atria are normal in size There is no structural or hemodynamically significant valvular disease. Mildly dilated ascending aorta measuring 3.77 cm Wall motion Left Ventricle The left ventricle is normal size. The left ventricular systolic function is normal. The left ventric ular ejection fraction is within the normal range. Mild concentric left ventricular hypertrophy. Ther e is normal LV segmental wall motion. There is no ventricular septal defect visualized. LVEF is 55%. Right Ventricle Right ventricle is grossly normal in size. Right ventricular systolic function is grossly normal. The RVSP is 22.4mmHg. Atria The left atrium size is normal. The right atrium size is normal. The interatrial septum is intact wit h no evidence for an atrial septal defect. Aortic Valve The aortic valve is normal in structure. Aortic valve is trileaflet. There is no aortic valvular sten osis. No aortic regurgitation is present. Mitral Valve The mitral valve is normal in structure. No evidence of mitral valve stenosis. Trace to mild mitral r egurgitation. Tricuspid Valve The tricuspid valve is normal in structure. There is no tricuspid valve stenosis. Trace to mild tricu spid regurgitation. Pulmonic Valve The pulmonary valve is normal in structure. There is no pulmonic valvular stenosis. Trace pulmonic re gurgitation. Great Vessels The aortic root is normal in size. The ascending aorta is mildly dilated. Aortic arch is normal in ca liber. IVC is normal in size and collapses >50% with inspiration. Pericardium There is no pericardial effusion. 2D Dimensions IVSD d PLAX 1.10 cm F: 0.6-1.0 LV Vol A2C d MOD 100.6 mL LVPW d PLAX 1.15 cm F: 0.6 - 1.0 LV Vol A4C d MOD 124.6 mL LVID d PLAX 4.96 cm F: 3.8 - 5.2 LA vol/ BSA A4C s A-L 17.8 mL/m2 LVDs 3.45 cm F: 2.2 - 3.5 LA Area A4C s MOD 14.12 cm2 Ao Root d 3.05 cm F: 2.7 - 3.3 LV EF A4C MOD 55.3 % RA Area A4C 16.79 cm2 LV EF A2C MOD 55.8 % RA Vol/ BSA A4C s A-L 22.7 mL/m2 LV EF Biplane MOD 55.0 % Ao Asc Diam d 3.77 cm F: 2.3 - 3.1 SV 64.38 mL LV EF Teichholz 56.9 % SV Index 31.19 mL/m2 LVEF (Cobos's) 55.02 % F: 54 - 74 LV Volume 86.84 mL F: 46 - 106 LV Volume Index 42.15 mL/m2 F: 29 - 61 LV Vol Biplane MOD 117.0 mL FS 29.90 % M-Mode TAPSE 2.71 cm (M/F) >1.7 LV Diastology MV E' medial 0.123 (>0.07 m/s) E/A Ratio 1.1 LV E/e MED 7.60 (<14) MV E Vmax 0.94 (0.4-1.3 m/s) MV E' lateral 0.072 (>0.1 m/s) MV A Vmax 0.85 (0.4-1.3 m/s) LV E/e LAT 12.95 (<14) MV E/A Ratio 1.06 MV E/E' medial 7.62 MV E/E' lateral 12.97 Aortic Valve LVOT Area 3.64 cm2 AoV Area Vmax 2.80 cm2 LVOT Vmax 1.22 m/s AoV Area/ BSA (Vmax) 1.36 cm2/m2 LVOT Mean Jamil. 0.80 m/s ALEX Mean Jamil. 2.58 cm2 LVOT Peak Grad 6.0 mmHg ALEX Mean Jamil. Index 1.25 cm2/m2 LVOT Mean Grad 3.0 mmHg LVOT VTI 0.252 m LVOT Diam s 2.15 cm AoV Vmax 1.59 m/s Velocity Ratio 0.76 AoV Mean Jamil. 1.13 m/s AoV Peak Grad 10.1 mmHg LVOT SV 91.64 mL AoV Mean Grad 5.6 mmHg AoV VTI 0.314 m AoV Area VTI 2.92 cm2 AoV Area/ BSA (VTI) 1.41 cm/m2 Mitral Valve MV DT 185 (160-240 msec) MV PHT 54 msec MV Area PHT 4.10 cm2 MV VTI 0.273 m MV Area VTI 3.36 (4.0-6.0 cm2) Pulmonary Valve PV Vmax 1.07 (0.5-1.5 m/s) RVOT Peak Gr. 2.46 mmHg PV Peak Grad 4.6 mmHg RVOT Mean Gr. 1.25 mmHg PV Mean Grad 2.3 mmHg RVOT VTI 0.154 m PV VTI 0.188 m RVOT Vmax 0.78 m/s Tricuspid Valve TR Peak Grad 19.3 mmHg TR Vmax 2.20 m/s RA Pressure 3.00 mmHg RVSP (TR) 22.4 mmHg
== END 2021-10-30 01:31 ==
PROVIDERS: PCP Nurse Practitioner Family; Visit Provider Nurse Practitioner Family
DX: I10 Essential (primary) hypertension (principal); D86.9 Sarcoidosis, unspecified; I77.819 Aortic ectasia, unspecified site
CPT/HCPCS: 76770; 93306

== ENCOUNTER 2021-11-04 17:08 | Outpatient (REF) | payer BC, SELFPAY ==
--- NOTE | 2021-11-04 15:00 | ENDOMET_PTH ---
PATIENT: Susan Salas LOC: [facility] U#:[id number] AGE/SX: 46/F ROOM: RE11/04/[address]: Shirley York DO : 1975 BED: DIS: 11/04/2021 SPEC #: [id number] RECD: 11/04/21 17:59 STATUS: BRAD REQ #: [id number] IZZY: 11/04/21 15:[address]: Shirley York DEPT: Surgical Specimen RECD BY: Juany White ENTERED: 11/04/21 18:00 SP TYPE: Endomet OTHR DR: COURTNEY DIOR NP Tissues: 1 - ENDOMETRIUM BX/YOEL Procedures: GROSS AND MICRO LEVEL 4 Comments: [id number]
--- NOTE | 2021-11-04 15:00 | PAPFT_PTH ---
PATIENT: Susan Salas LOC: [facility] U#:[id number] AGE/SX: 46/F ROOM: RE11/04/[address]: Shirley York DO : 1975 BED: DIS: 11/04/2021 SPEC #: [id number] RECD: 11/04/21 18:08 STATUS: BRAD REQ #: [id number] IZZY: 11/04/21 15:[address]: Shirley York DEPT: [facility] Cytology RECD BY: Juany White ENTERED: 11/04/21 18:09 SP TYPE: PAPFT ALANNA DR: COURTNEY DIOR NP Tissues: 1 - CX/ENDOCX FOR PAP SMEARS Procedures: PAP THIN PREP/[facility] Screening HPV DNA PROBE Comments: [id number]
== END 2021-11-04 17:09 | disposition home or self-care (01) ==
LOC: LBN 17:08
PROVIDERS: PCP Nurse Practitioner Family; Visit Provider Obstetrics & Gynecology
DX: Z12.4 Encounter for screening for malignant neoplasm of cervix (principal); Z11.51 Encounter for screening for human papillomavirus (HPV); N93.9 Abnormal uterine and vaginal bleeding, unspecified
CPT/HCPCS: 88142; 88305; 87624

== ENCOUNTER 2021-11-12 12:40 | Outpatient (REF) | payer BC, SELFPAY ==
[2021-11-12 14:44] LABS: Abs Immature Grans 0.04 10^3/uL (0.0-0.06); Absolute Basophil Count 0.06 10^3/uL (0.0-0.2); Absolute Eosinophil Count 0.13 10^3/uL (0.0-0.7); Absolute Lymphocyte Count 0.91 10^3/uL (1.2-3.4); Absolute Neutrophil Count 4.72 10^3/uL (1.2-6.7); Basophils % 0.9; HCT 35.2 % (36.0-46.0); HGB 11.2 g/dL (11.2-15.7); Immature Grans % 0.6; Lymphocytes % 14.3; MCH 29.8 pg (27.0-33.0); MCHC 31.8 % (32.0-36.0); MCV 93.6 fL (80-95); MPV 9.8 fL (8.0-11.0); Monocytes % 7.9; Neutrophils % 74.3; Nucleated RBC 0 %; Platelet Count 232 10^3/uL (130-400); RBC 3.76 10^6/uL (3.93-5.22); RDW 14.6 % (11.7-14.6); RDW-SD 48.7 fL; WBC 6.36 10^3/uL (4.4-10.8)
[2021-11-12 15:21] LABS: ALT 20 U/L (14-59); AST 19 U/L (15-37); Albumin 4.2 g/dL (3.4-5.0); Alkaline Phosphatase 41 U/L (46-116); Anion Gap 14.4 mmol/L (3-11); BUN 23 mg/dL (7-18); Bilirubin, Total 0.5 mg/dL (0.2-1.0); CO2 22.6 mmol/L (21.0-32.0); CREATININE 1.3 mg/dL (0.55-1.02); Calcium 8.9 mg/dL (8.5-10.1); Chloride 101 mmol/L (98-107); Glucose 119 mg/dL (74-106); Potassium 3.9 mmol/L (3.5-5.1); Sodium 138 mmol/L (136-145); Total Protein 7.5 g/dL (6.4-8.2)
== END 2021-11-12 12:41 | disposition home or self-care (01) ==
LOC: NCHCN 12:40
PROVIDERS: PCP Nurse Practitioner Family; Visit Provider Nurse Practitioner Family
DX: I10 Essential (primary) hypertension (principal); F41.9 Anxiety disorder, unspecified; G62.9 Polyneuropathy, unspecified
CPT/HCPCS: 80053; 85025

== ENCOUNTER 2021-12-08 02:35 | Outpatient (CLI) | payer BC, SELFPAY ==
[2021-12-08 12:12] LABS: Source Nasal/Nares
[2021-12-08 17:27] LABS: COVID-19 PCR Negative (Negative)
== END 2021-12-08 02:36 | disposition home or self-care (01) ==
PROVIDERS: PCP Nurse Practitioner Family; Visit Provider Obstetrics & Gynecology
DX: Z20.822 Contact with and (suspected) exposure to COVID-19 (principal); Z01.818 Encounter for other preprocedural examination
CPT/HCPCS: 87635

== ENCOUNTER 2021-12-08 02:42 | Outpatient (CLI) | payer BC, SELFPAY ==
[2021-12-08 09:06] LABS: Abs Immature Grans 0.02 10^3/uL (0.0-0.06); Absolute Basophil Count 0.05 10^3/uL (0.0-0.2); Absolute Eosinophil Count 0.11 10^3/uL (0.0-0.7); Absolute Lymphocyte Count 1.05 10^3/uL (1.2-3.4); Absolute Monocyte Count 0.46 10^3/uL (0.1-0.8); Absolute Neutrophil Count 4.53 10^3/uL (1.2-6.7); Basophils % 0.8; Eosinophils % 1.8; HCT 37.6 % (36.0-46.0); HGB 11.5 g/dL (11.2-15.7); Immature Grans % 0.3; Lymphocytes % 16.9; MCH 28.4 pg (27.0-33.0); MCHC 30.6 % (32.0-36.0); MCV 92.8 fL (80-95); MPV 9.6 fL (8.0-11.0); Monocytes % 7.4; Neutrophils % 72.8; Platelet Count 241 10^3/uL (130-400); RBC 4.05 10^6/uL (3.93-5.22); RDW 12.7 % (11.7-14.6); RDW-SD 43.5 fL; WBC 6.22 10^3/uL (4.4-10.8)
[2021-12-08 10:05] LABS: Anion Gap 7.3 mmol/L (3-11); BUN 17 mg/dL (7-18); CO2 29.7 mmol/L (21.0-32.0); Chloride 99 mmol/L (98-107); Potassium 4.1 mmol/L (3.5-5.1); Sodium 136 mmol/L (136-145)
== END 2021-12-08 02:43 | disposition home or self-care (01) ==
LOC: LBO 02:42
PROVIDERS: PCP Nurse Practitioner Family; Visit Provider Obstetrics & Gynecology
DX: N93.8 Other specified abnormal uterine and vaginal bleeding (principal); D25.9 Leiomyoma of uterus, unspecified; I10 Essential (primary) hypertension; Z01.818 Encounter for other preprocedural examination; Z01.812 Encounter for preprocedural laboratory examination
CPT/HCPCS: 36415; 80051; 84520; 86850; 86900; 86901; 85025

== ENCOUNTER 2021-12-09 15:06 | Outpatient (REF) | payer BC, SELFPAY ==
[2021-12-09 18:18] LABS: Anion Gap 9.2 mmol/L (3-11); BUN 17 mg/dL (7-18); CO2 26.8 mmol/L (21.0-32.0); CREATININE 1.3 mg/dL (0.55-1.02); Calcium 9.2 mg/dL (8.5-10.1); Chloride 99 mmol/L (98-107); Glucose 115 mg/dL (74-106); Potassium 4.3 mmol/L (3.5-5.1); Sodium 135 mmol/L (136-145)
== END 2021-12-09 15:07 | disposition home or self-care (01) ==
LOC: NCHCN 15:06
PROVIDERS: PCP Nurse Practitioner Family; Visit Provider Nurse Practitioner Family
DX: I10 Essential (primary) hypertension (principal); R31.9 Hematuria, unspecified; G62.9 Polyneuropathy, unspecified
CPT/HCPCS: 80048

== ENCOUNTER 2021-12-15 04:32 | Outpatient (CLI) | payer BC, SELFPAY | END 2021-12-15 04:33 | disposition home or self-care (01) | PROVIDERS: PCP Nurse Practitioner Family; Visit Provider Obstetrics & Gynecology ==

== ENCOUNTER 2022-01-28 20:04 | Emergency (ER) | payer BC, SELFPAY ==
[2022-01-28 20:07] VITALS: BP 146/83; PULSE 89; RESP 18; TEMP 37.1; O2SAT 98
--- NOTE | 2022-01-28 20:15 | DI.CT_ITS ---
Exam(s) CT RENAL COLIC WO EXAM: CT RENAL COLIC WO CLINICAL HISTORY: flank pain. TECHNIQUE: Imaging Protocol: Axial computed tomography images with coronal and sagittal reformatted images were created and reviewed CONTRAST MATERIAL: Intravenous: none Oral: None COMPARISON: No exams were available for comparison FINDINGS: VISUALIZED LUNG BASES: No nodules nor pleural effusions evident. ABDOMEN: There is no ascites. LIVER: There are no obvious focal hepatic lesions evident of this noninfused study. GALLBLADDER/BILIARY: There are multiple gallstones on the dependent wall of the gallbladder with aver age size 7-8 millimeters. Gallbladder is not distended. There is no gallbladder wall edema nor nicholas cholecystic fluid. No calculi seen in the nondilated CBD. PANCREAS: No evidence of pancreatic mass nor dilatation of the pancreatic duct. SPLEEN: Spleen is not enlarged. No obvious intrasplenic lesions. ADRENALS: There are no significant adrenal masses. KIDNEYS:Right kidney is unremarkable. There is a calculus in the left renal pelvis which measures 1. 4 by 0.7 cm. There is mild dilatation of the infundibulum of the left kidney. No perinephric streak ing. No calculi in the left ureter below this level nor calculi evident in the urinary bladder. Phl eboliths are seen both sides of the pelvis.. ABDOMINAL AORTA: Abdominal aorta is not enlarged. LYMPH NODES: There is no retroperitoneal nor paraaortic adenopathy. ABDOMINAL WALL: No evidence of significant anterior abdominal wall nor inguinal hernia. GI: There is no evidence of bowel obstruction, free air, nor abscess. PELVIS: LYMPH NODES: There is no intrapelvic nor inguinal adenopathy. GI: No evidence of appendicitis.No evidence of sigmoid diverticulitis. URINARY BLADDER: No calculi nor obvious masses evident REPRODUCTIVE: Uterus is enlarged and exhibits nodular contour most probably related to presence of fi broids. There is a 3 point 2 x 2.4 cm cyst in the right ovary. There is no free fluid in the cul-de -sac. Left ovary is difficult to identify. OSSEOUS: No significant osseous lesions. No fractures. Facet arthropathy noted in the lower lumbar spine. Also advanced disc space narrowing at L4-5 level. Vacuum phenomena seen at both L4-5 and L5-S1 disc spaces. IMPRESSION: 1. There is a 14 x 7 millimeter calculus in the left renal pelvis. There is mild dilatation of the i psilateral renal infundibuli. No perinephric fluid. Left ureter below this level is not dilated. N o calculi in the urinary bladder. The opposite-right kidney appears unremarkable. 2. Cholelithiasis. No evidence of acute cholecystitis nor dilatation of the biliary tree. 3. No evidence of appendicitis nor diverticulitis. 4. Enlarged lobulated uterus secondary to fibroids but should be further investigated ultrasound. T here is also a cyst in the right ovary with measurements as above. There is no fluid in the cul-de-s ac. RADIATION DOSE DELIVERED: 1,164.28mGy.cm Total DLP DATA REPOSITORY: All CT scans at this facility are submitted to the National Radiology Data Registry (NRDR) Dose Index Registry (DIR) with the [employer] (A[employer]). RADIATION OPTIMIZATION: All CT scans at this facility use at least one of these dose optimization te chniques: automated exposure control; mA and/or kV adjustment per patient size (includes targeted exa ms where dose is matched to clinical indication); or iterative reconstruction.
--- NOTE | 2022-01-28 20:23 | ED.GENADUL_ITS ---
Discharge Plan Discharge Details Chief Complaint: FlankPain Primary Care Provider: COURTNEY DIOR ED Provider: Ez Velazquez Home Meds and New Rx's Prescriptions: No Action silver sulfadiazine [Silvadene] 1 % cream 1 applic topical BID Qty: 50 2RF Rx Instructions: apply a 1.5 mm thickness norethindrone acetate [Aygestin] 5 mg tablet 10 mg PO BID Qty: 120 4RF potassium chloride 20 mEq tablet extended release 20 meq PO BID Qty: 30 0RF amlodipine 5 mg tablet 5 mg PO DAILY Qty: 30 0RF lorazepam [Ativan] 0.5 mg tablet 0.5 mg PO BID PRN (Reason: anxiety) Qty: 10 0RF omeprazole 20 mg capsule,delayed release(DR/EC) 20 mg PO DAILY Label Comments: Take 1 capsule by mouth once a day quetiapine [Seroquel] 50 mg tablet 50 mg PO DAILY Label Comments: 1 tablet by mouth once a day chlorthalidone 25 mg tablet 25 mg PO DAILY metoprolol tartrate 50 mg tablet 25 mg PO BID lisinopril 40 mg tablet 30 mg PO DAILY Medical Decision Making Patient with what appears to be recurrent left kidney stone. Given her history of lithotripsy believe this prudent to scan since this will affect further therapy. Renal CT revealed a 1.4 nonobstructing stone in the left renal pelvis. No evidence of hydronephrosis. I discussed the results of the CAT scan with the patient and underlined the importance of her following with urology so that she can get to the bottom of this recurrent left flank pain. I have asked her not to postpone her appointment with urology at [facility]. At this time no further interventions are required in the emergency department. The rest of the CAT scan did not reveal any abnormalities. UA not infected. HPI General Date/Time Provider Initiated Documentation: 01/28/22 20:11 . HPI Narrative: Patient states that she has had problems with left-sided kidney stones for the past few years. She has had stones on that side that have required lithotripsy inability to assess spontaneously. The pain she presents with today in the emergency department started couple days ago. She describes the pain is intermittent associated with harsh nausea but no vomiting. The pain is located to the left flank and radiates around to the front and down towards the left lower quadrant. Acute on onset. Only relieving factors this time. Ex acerbating factors are not identified. No further associated symptoms since then no fever no chills. Positive nausea no vomiting. Related Data Home Medications Medication Instructions Recorded Confirmed amlodipine 5 mg tablet 5 mg PO DAILY #30 tabs 09/24/21 01/28/22 lorazepam 0.5 mg tablet (Ativan) 0.5 mg PO BID PRN anxiety #10 tabs 09/24/21 01/28/22 chlorthalidone 25 mg tablet 25 mg PO DAILY 10/25/21 01/28/22 lisinopril 40 mg tablet 30 mg PO DAILY 10/25/21 01/28/22 metoprolol tartrate 50 mg tablet 25 mg PO BID 10/25/21 01/28/22 omeprazole 20 mg capsule,delayed 20 mg PO DAILY 10/25/21 10/28/21 release quetiapine 50 mg tablet (Seroquel) 50 mg PO DAILY 10/25/21 01/28/22 potassium chloride 20 mEq 20 meq PO BID #30 tabs 10/28/21 tablet,extended release silver sulfadiazine 1 % topical 1 applic topical BID #50 grams 11/18/21 01/28/22 cream (Silvadene) norethindrone acetate 5 mg tablet 10 mg PO BID #120 tabs 12/11/21 01/28/22 (Aygestin) Previous Rx's Medication Instructions Recorded amlodipine 5 mg tablet 5 mg PO DAILY #30 tabs 09/24/21 lorazepam 0.5 mg tablet (Ativan) 0.5 mg PO BID PRN anxiety #10 tabs 09/24/21 potassium chloride 20 mEq 20 meq PO BID #30 tabs 10/28/21 tablet,extended release silver sulfadiazine 1 % topical 1 applic topical BID #50 grams 11/18/21 cream (Silvadene) norethindrone acetate 5 mg tablet 10 mg PO BID #120 tabs 12/11/21 (Aygestin) Allergies Allergy/AdvReac Type Severity Reaction Status Date / Time hayfever Allergy Uncoded 01/28/22 20:15 General Stated Complaint: FlankPain TARA: 3 Review of Systems Narrative: Constitutional negative fever and chills. Positive for malaise weakness fatigue Respiratory no cough no shortness of breath see HPI, no dysuria no frequency no hematuria GI positive for nausea. No abdominal pain. MSK negative Skin no rashes Neuro no headaches Psych she does feel anxious secondary to pain Hematological not on any blood thinners PFSH All Active Problems (Updated 12/11/21 @ 11:08 by Margoth Villeda MD) Abnormal uterine bleeding (AUB) (Acute) Anxiety (Chronic) Headache (Acute) Hypertension (Chronic) Medical History Gout Sarcoidosis Stroke, hemorrhagic Surgical History History of lithotripsy Social History Smoking/Tobacco Use Status: Never Smoking risk assessment performed?: Yes Alcohol Intake: current Alcohol Intake frequency: holidays/special occasions only Drug use: Never Substance use type: does not use Do you feel safe at home: Yes Do you feel safe in your relationship?: Yes Exam Narrative Exam Narrative: Awake alert oriented x3, in mild discomfort, pleasant and cooperative cooperat constantine, high BMI PERRLA EOMI MMM anicteric Supple neck Chest is clear to auscultation bilaterally Heart regular rhythm and rate no CVAT Back no tenderness Skin normal cap refill no rashes Neuro grossly intact Extremity moving all extremities normal gait Psych adequate mood and affect Course Vital Signs Vital signs: Vital Signs Temperature 37.1 C 01/28/22 20:07 Pulse 889 H 01/28/22 20:07 Respiratory Rate 18 01/28/22 20:07 Blood Pressure 146/83 H 01/28/22 20:07 Pulse Oximetry 98 01/28/22 20:07 Temperature 37.1 C 01/28/22 20:07 Temperature Source Temporal Artery Scan 01/28/22 20:07 Pulse 889 H 01/28/22 20:07 Respiratory Rate 18 01/28/22 20:07 Respiratory Effort 01/28/22 20:18 Blood Pressure 146/83 H 01/28/22 20:07 Pulse Oximetry 98 01/28/22 20:07 Pain Level 9 01/28/22 20:07
[2022-01-28] MEDS: Normal Saline 1,000 ML 1000 ML IV (20:25)
[2022-01-28] MEDS: Ketorolac 15 MG/ML VIAL IVP (20:25)
[2022-01-28] MEDS: Ondansetron 4 MG/2 ML VIAL IVP (20:26)
[2022-01-28 20:34] LABS: Bilirubin Small (Negative); Blood Moderate (Negative); Clarity Cloudy (Clear); Glucose Negative (Negative); Ketones 15 mg/dL (Negative); Leukocyte Esterase Small (Negative); Nitrite Negative (Negative); Specific Gravity 1.025 (1.005-1.025); pH 6.5 (5-8)
--- NOTE | 2022-01-28 21:16 | DI.VRAD_ITS ---
PROCEDURE INFORMATION: Exam: CT Abdomen And Pelvis Without Contrast Exam date and time: 01/28/2022 8:46 PM Age: 46 years old Clinical indication: Abdominal pain; Generalized; Surgery date: 6+ months; Surgery type: Prior surgery to remove stones; Additional info: Flank pain TECHNIQUE: Imaging protocol: Computed tomography of the abdomen and pelvis without contrast. Radiation optimization: All CT scans at this facility use at least one of these dose optimization techniques: automated exposure control; mA and/or kV adjustment per patient size (includes targeted exams where dose is matched to clinical indication); or iterative reconstruction. COMPARISON: US PELVIS TRANSVAGINAL 10/25/2021 5:36 PM FINDINGS: Lungs: The visualized portions of the lung bases are normal. Liver: Normal. No mass. Gallbladder and bile ducts: Multiple small gallstones. Otherwise the gallbladder is unremarkable. Pancreas: Normal. No ductal dilation. Spleen: Normal. No splenomegaly. Adrenal glands: Normal. No mass. Kidneys and ureters: Nonobstructing 1.4 cm stone within the left renal pelvis. No evidence of hydronephrosis. Stomach and bowel: Unremarkable. No obstruction. No mucosal thickening. Appendix: No evidence of appendicitis. Intraperitoneal space: Unremarkable. No free air. No significant fluid collection. Vasculature: Unremarkable. No abdominal aortic aneurysm. Lymph nodes: Unremarkable. No enlarged lymph nodes. Urinary bladder: Unremarkable as visualized. Reproductive: Simple cyst measuring 2.7 cm within the right adnexa/ovary most likely physiologic. The uterus is enlarged and demonstrates nodular contours, most likely compatible with fibroid. Bones/joints: Moderate severe degenerative disc disease at L4-L5 and L5-S1. No acute fracture. No suspicious osseous lesion. Soft tissues: Unremarkable. IMPRESSION: 1. No evidence of acute abdominal or pelvic process. Nonobstructing 1.4 cm stone within the left renal pelvis. 2. Multiple small gallstones. 3. Enlarged and lobulated appearance of the uterus may be secondary to fibroids and/or adenomyosis as seen on prior ultrasound. Findings may be further evaluated with MRI of the pelvis with gadolinium. Dictated and Authenticated by: Edward Velez MD. Ordering:LYNDSEY Hui MD
[2022-01-28 21:32] VITALS: BP 125/72; PULSE 88; RESP 18; O2SAT 99
== END 2022-01-28 21:38 | disposition home or self-care (01) ==
PROVIDERS: Emergency Provider Emergency Medicine; PCP Nurse Practitioner Family
DX: R10.9 Unspecified abdominal pain (principal); Z87.442 Personal history of urinary calculi; Z98.890 Other specified postprocedural states; I10 Essential (primary) hypertension
CPT/HCPCS: 96374; 96375; 99284; 74176; 81003; 81015; J1885; J2405

== ENCOUNTER 2022-02-02 12:35 | Outpatient (REF) | payer BC, MEDICAID, SELFPAY ==
[2022-02-02 14:33] LABS: ALT 26 U/L (14-59); AST 30 U/L (15-37); Albumin 3.7 g/dL (3.4-5.0); Alkaline Phosphatase 27 U/L (46-116); Anion Gap 13.3 mmol/L (3-11); BUN 21 mg/dL (7-18); Bilirubin, Total 0.4 mg/dL (0.2-1.0); CO2 22.7 mmol/L (21.0-32.0); CREATININE 1.3 mg/dL (0.55-1.02); Calcium 10.2 mg/dL (8.5-10.1); Chloride 99 mmol/L (98-107); Glucose 89 mg/dL (74-106); Potassium 4.4 mmol/L (3.5-5.1); Sodium 135 mmol/L (136-145); Total Protein 7.7 g/dL (6.4-8.2)
[2022-02-02 16:19] LABS: COMMENT (LAB VIEW ONLY) 203.56 mg/dL
[2022-02-02 16:42] LABS: Microalb ug/mg Crea 62.6 ug/mg Cr
== END 2022-02-02 12:36 | disposition home or self-care (01) ==
LOC: NCHCN 12:35
PROVIDERS: PCP Nurse Practitioner Family; Visit Provider Nurse Practitioner Family
DX: I10 Essential (primary) hypertension (principal); N20.0 Calculus of kidney; R60.0 Localized edema
CPT/HCPCS: 80053; 82043; 82570

== ENCOUNTER 2022-02-24 03:11 | Outpatient (CLI) | payer BC, MEDICAID, SELFPAY ==
[2022-02-24 13:08] LABS: Abs Immature Grans 0.09 10^3/uL (0.0-0.06); Absolute Basophil Count 0.08 10^3/uL (0.0-0.2); Absolute Eosinophil Count 0.09 10^3/uL (0.0-0.7); Absolute Lymphocyte Count 1.41 10^3/uL (1.2-3.4); Absolute Monocyte Count 0.88 10^3/uL (0.1-0.8); Eosinophils % 1.1; HCT 41.9 % (36.0-46.0); HGB 13.8 g/dL (11.2-15.7); Immature Grans % 1.1; MCH 29.1 pg (27.0-33.0); MCHC 32.9 % (32.0-36.0); MCV 88 fL (80-95); MPV 9.4 fL (8.0-11.0); Monocytes % 11.2; Neutrophils % 67.6; Platelet Count 285 10^3/uL (130-400); RBC 4.75 10^6/uL (3.93-5.22); RDW 13.8 % (11.7-14.6); RDW-SD 43.8 fL; WBC 7.85 10^3/uL (4.4-10.8)
[2022-02-24 13:59] LABS: Anion Gap 11.8 mmol/L (3-11); BUN 20 mg/dL (7-18); CO2 25.2 mmol/L (21.0-32.0); Chloride 95 mmol/L (98-107); Potassium 3.8 mmol/L (3.5-5.1); Sodium 132 mmol/L (136-145)
== END 2022-02-24 03:12 | disposition home or self-care (01) ==
LOC: LBO 03:11
PROVIDERS: PCP Nurse Practitioner Family; Visit Provider Obstetrics & Gynecology
DX: D25.9 Leiomyoma of uterus, unspecified (principal); N93.8 Other specified abnormal uterine and vaginal bleeding; Z01.818 Encounter for other preprocedural examination; Z01.812 Encounter for preprocedural laboratory examination; N20.0 Calculus of kidney
CPT/HCPCS: 36415; 80051; 84520; 86850; 86900; 86901; 85025

== ENCOUNTER 2022-02-24 03:40 | Outpatient (CLI) | payer MEDICAID, SELFPAY | END 2022-02-24 03:41 | disposition home or self-care (01) | LOC: LBO 03:42 | PROVIDERS: PCP Nurse Practitioner Family; Visit Provider Obstetrics & Gynecology ==

== ENCOUNTER 2022-02-24 13:41 | Outpatient (REF) | payer BC, MEDICAID, SELFPAY ==
[2022-02-24 13:43] LABS: Source Nasal/Nares
[2022-02-24 16:45] LABS: COVID-19 PCR Negative (Negative)
== END 2022-02-24 13:42 | disposition home or self-care (01) ==
LOC: LBN 13:41
PROVIDERS: PCP Nurse Practitioner Family; Visit Provider Urology
DX: Z20.822 Contact with and (suspected) exposure to COVID-19 (principal); Z01.818 Encounter for other preprocedural examination
CPT/HCPCS: 87635

== ENCOUNTER 2022-02-26 06:05 | Inpatient (IN) | payer BC, MEDICAID, SELFPAY ==
[2022-02-26] VITALS (21 sets, daily range): BP systolic 87–130; BP diastolic 51–89; PULSE 72–87; RESP 11–20; TEMP 36–37.1; O2SAT 93–97; BMI 33.6
--- NOTE | 2022-02-26 06:09 | ANES.PREOP_ITS ---
General Info Date of Service Date Performed: 02/26/22 Height: 5 ft 7 in Weight: 97.522 kg Body Mass Index (BMI): 33.6 Surgical Procedure: Operation Date: 02/26/22 07:40 Proposed Procedure Side Surgeon p Hysterectomy Vaginal Laparoscopic Assist,Cysto DO abraham Peter Salpingectomy Laparoscopic Bilateral DO abraham Peter Cystoscopy, Left retrograde Pyelogram, insert left ureteral stent Left Arsh Littlejohn MD Meds Allergies and Home Medications Allergies Allergy/AdvReac Type Severity Reaction Status Date / Time hayfever Allergy Uncoded 02/26/22 06:29 Home Medication Medication Instructions Recorded amlodipine 5 mg tablet 5 mg PO DAILY #30 tabs 09/24/21 lorazepam 0.5 mg tablet (Ativan) 0.5 mg PO BID PRN anxiety #10 tabs 09/24/21 chlorthalidone 25 mg tablet 25 mg PO DAILY 10/25/21 lisinopril 40 mg tablet 30 mg PO DAILY 10/25/21 metoprolol tartrate 50 mg tablet 25 mg PO BID 10/25/21 omeprazole 20 mg capsule,delayed 20 mg PO DAILY 10/25/21 release quetiapine 50 mg tablet (Seroquel) 50 mg PO DAILY 10/25/21 potassium chloride 20 mEq 20 meq PO BID #30 tabs 10/28/21 tablet,extended release norethindrone acetate 5 mg tablet 20 mg PO BID #240 tabs 02/04/22 (Aygestin) methadone 5 mg/5 mL oral solution 110 mg PO DAILY 02/25/22 Current Visit Medications: Current Medications Generic Name Dose Route Start Last Admin Trade Name Freq PRN Reason Stop Dose Admin Ringer's Solution 1,000 mls @ 125 mls/hr 02/26/22 06:00 IV 03/27/22 23:59 INFUSION JORDON Cefazolin Sodium/Dextrose 2 gm in 50 mls @ 100 mls/hr 02/26/22 06:00 Ancef Duplex IVPB 02/26/22 16:00 PREOP JORDON IV Miscellaneous Supplies 1 each 02/26/22 06:00 Iv Access IV 03/27/22 23:59 DIRECTED JORDON Sodium Chloride 0 ml 02/26/22 06:00 Normal Saline Flush 10 Ml Syr IV 03/27/22 23:59 PRN PRN Sodium Chloride 0 ml 02/26/22 06:00 Normal Saline 10 Ml Vial IJ 03/27/22 23:59 DIRECTED PRN Sterile Water 0 ml 02/26/22 06:00 Water,Injection,Sterile 10 Ml Vial IJ 03/27/22 23:59 DIRECTED PRN PFSH Active Problems Active Problems: Problem Status Onset Code Anxiety F41.9 Headache R51.9 Hypertension I10 Abnormal uterine bleeding (AUB) N93.9 Acute flank pain R10.9 Uterine fibroid D25.9 Renal calculus N20.0 Medical History Medical History (Updated 02/25/22 @ 09:03 by Bin Dinh) Gout Hx of drug abuse pt. 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 Sarcoidosis Stroke, hemorrhagic Surgical History Surgical History History of lithotripsy Tobacco Smoking/Tobacco Use Status: Never Alcohol Alcohol Intake: current Alcohol intake frequency: holidays/special occasions only Substance Use Substance use: Current Sobriety Substance use type: former substance user Vital Signs and Lab Results Vital Signs Most Recent Vital Signs in EMR: Temp Pulse Resp BP Pulse Ox 37.1 C 81 19 130/89 96 02/26/22 06:18 02/26/22 06:18 02/26/22 06:18 02/26/22 06:18 02/26/22 06:18 Lab Results Blood Type / Crossmatch: Patient ABO/Rh A Positive 02/24/22 Antibody Screen NEGATIVE 02/24/22 Complete Blood Count: White Blood Count 7.85 10^3/uL (4.4-10.8) 02/24/22 12:55 Red Blood Count 4.75 10^6/uL (3.93-5.22) 02/24/22 12:55 Hemoglobin 13.8 g/dL (11.2-15.7) 02/24/22 12:55 Hematocrit 41.9 % (36.0-46.0) 02/24/22 12:55 Platelet Count 285 10^3/uL (130-400) 02/24/22 12:55 Complete Metabolic Panel: Sodium Level 132 mmol/L (136-145) L 02/24/22 12:55 Potassium Level 3.8 mmol/L (3.5-5.1) 02/24/22 12:55 Chloride Level 95 mmol/L (98-107) L 02/24/22 12:55 Carbon Dioxide Level 25.2 mmol/L (21.0-32.0) 02/24/22 12:55 Blood Urea Nitrogen 20 mg/dL (7-18) H 02/24/22 12:55 Creatinine 1.3 mg/dL (0.55-1.02) H 02/02/22 12:00 Estimated GFR/1.73 m2 44.10 (mL/min/1.73m2) 02/02/22 12:00 Calcium Level 10.2 mg/dL (8.5-10.1) H 02/02/22 12:00 Albumin 3.7 g/dL (3.4-5.0) 02/02/22 12:00 Glucose Level 89 mg/dL (74-106) 02/02/22 12:00 Liver Function Panel: Alanine Aminotransferase (ALT/SGPT) 26 U/L (14-59) 02/02/22 12: 00 Aspartate Amino Transf (AST/SGOT) 30 U/L (15-37) 02/02/22 12:00 Coagulation Panel: No Data to Display Cardiac Panel: No Data to Display Arterial Blood Gas: No Data to Display Venous Blood Gas: No Data to Display Pancreas Panel: No Data to Display Thyroid Panel: No Data to Display Infectious Disease: Coronavirus (COVID-19)(PCR) Negative (Negative) 02/24/22 13:42 Coronavirus 2019 Source Nasal/Nares 02/24/22 13:42 Blood Cultures: No Data to Display Toxicology Panel: No Data to Display Panel: No Data to Display Imaging and Studies Imaging and Studies Study information below may be from another EMR and interpreted by another provider. Please see original notes in EMR for more complete details. EKG Summary: 11/11: sinus Echocardiogram Summary: 11/11: mild LV hypertrophy, LVEF 55%, normal RvFxn. no sig valve dz. mild ascending Ao dilation 3.77 cm Anesthesia Assessment and Plan Anesthesia History Personal History: No History of Anesthesia Complications Family History: No Family History of Anesthesia Complications Exercise Tolerance Exercise Tolerance: Metabolic Equivalents>4 Cardiac & Pulmonary Exam Cardiac Exam: Normal S1/S2 Heart Sounds Pulmonary Exam: Clear Bilateral Breath Sounds Implantable Cardiac Device Does patient have a Pacemaker or an ICD?: No Airway Exam Known Difficult Airway: No Mallampati Class: 3 Mouth Opening: Narrow (< 3cm) Thyromental Distance: Greater than 3 cm Neck Range of Motion: Full ROM Neck Circumference: Thick Teeth Condition: Normal Dentition ASA Classification ASA Score: ASA 3 Emergency Case?: No NPO Status NPO Status: NPO Clears >2 hours, Solids >8 hours Status Status: Negative HCG Anesthesia Plan Resuscitation Status: Full Code Anesthesia Technique: General Anesthesia Airway Planned: Endotracheal Tube Pain Management: Surgeon and patient request nerve block Monitors Used: Standard Monitors Preoperative Comments:: 46 yo female with abnormal uterine bleeding/fibroid for cysto/hysterectomy. Sig PMHx: HTN (home bp 130/80s), sarcoidosis (had a mediastinal bx which confirmed the dx, has not had steroids for this in a few years, denies lung or cord involvment), left basal ganglia hemorrhagic stroke in 2020 (bp's during this time where 220/120 - or higher, still has some residual right arm weakness and tremor), GERD (did not take omeprazole today), anxiety.
--- NOTE | 2022-02-26 06:51 | W.PM.HP.N ---
Date of service: 02/26/22 Time of Service: 06:52 Assessment and Plan Assessment and plan (1) Renal calculus: Status: Chronic Assessment and plan: We will place a left ureteral stent and plan a return to the OR for ureteroscopy once she heals from her hysterectomy. History of Present Illness History of Present Illness Chief Complaint: Left renal stone Narrative: This is a 46-year-old woman who has a past history of bilateral kidney stones.? She recalls requiring ureteral stents on 2 different occasions.? She had ESWL on 1 occasion.? She does not ever recall having ureteroscopy or percutaneous nephrolithotomy. She is unsure of her stones chemical composition.? She does have a history of gout. Her last stone occurrence was about 2 to 3 years ago.? She recalls the stone being about 3 mm.? She had a stent placed and she was able to pass the stone spontaneously. She currently has intermittent left flank pain.? She does see blood in her urine at times.? She has no dysuria, fever or chills. She is having a hysterectomy and is agreeable to a stent placement to prevent her stone from becoming obstructive. Once she heals from her hysterectomy, we will make plans for a more definitive stone treatment Review of Systems Narrative: No fevers or chills No vision change or dysphasia No diabetes or thyroid dysfunction No shortness of breath, cough or hemoptysis No chest pain or palpitations No nausea, vomiting, hepatitis, ulcers, jaundice, diarrhea or constipation Hx basal ganglia stroke with residual tremor. No seizures Dysfunctional uterine bleeding Hx sarcoidosis. No gout PFSH All Active Problems Anxiety (Chronic) Headache (Acute) Hypertension (Chronic) Abnormal uterine bleeding (AUB) (Acute) Acute flank pain (Acute) Uterine fibroid (Acute) Renal calculus (Chronic) Medical History Gout Hx of drug abuse 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 Meds Allergies and Home Medications Allergies Allergy/AdvReac Type Severity Reaction Status Date / Time hayfever Allergy Uncoded 02/26/22 06:29 Home Medications Medication Instructions Recorded Confirmed Type amlodipine 5 mg tablet 5 mg PO DAILY #30 tabs 09/24/21 02/26/22 Rx lorazepam 0.5 mg tablet (Ativan) 0.5 mg PO BID PRN anxiety #10 tabs 09/24/21 02/26/22 Rx chlorthalidone 25 mg tablet 25 mg PO DAILY 10/25/21 02/26/22 History lisinopril 40 mg tablet 30 mg PO DAILY 10/25/21 02/26/22 History metoprolol tartrate 50 mg tablet 25 mg PO BID 10/25/21 02/26/22 History omeprazole 20 mg capsule,delayed 20 mg PO DAILY 10/25/21 02/26/22 History release quetiapine 50 mg tablet (Seroquel) 50 mg PO DAILY 10/25/21 02/26/22 History potassium chloride 20 mEq 20 meq PO BID #30 tabs 10/28/21 02/26/22 Rx tablet,extended release norethindrone acetate 5 mg tablet 20 mg PO BID #240 tabs 02/04/22 02/26/22 Rx (Aygestin) methadone 5 mg/5 mL oral solution 110 mg PO DAILY 02/25/22 02/26/22 History Exam Const General: cooperative and no acute distress Neck Neck: supple Resp Effort & Inspection: normal respiratory effort Auscultation: clear to auscultation bilaterally Cardio Rate: regular rate Rhythm: regular rhythm GI Inspection: obesity Palpation: soft Neuro General: patient alert, patient awake and patient oriented x3 Results Last Vital Signs Temp 37.1 C 02/26/22 06:18 Pulse 81 02/26/22 06:18 Resp 19 02/26/22 06:18 BP 130/89 02/26/22 06:18 Pulse Ox 96 02/26/22 06:18
[2022-02-26] MEDS: Lactated Ringers 1,000 ML 125 ML IV (07:14)
[2022-02-26] MEDS: ceFAZolin 2 GM/50 ML BAG IVPB (08:00)
[2022-02-26] MEDS: Bupivacaine 0.25% Pres-Free 10 ML VIAL (10:33)
[2022-02-26] MEDS: Cellulose,Oxidized 4X8 1 PACKET MC ×2 (10:35→10:37)
--- NOTE | 2022-02-26 10:50 | UTER_PTH ---
PATIENT: Susan Salas LOC: OBS U#:[id number] AGE/SX: 46/F ROOM: OBS.306 RE02/26/[address]: Shirley York DO : 1975 BED: A DIS: 02/27/2022 SPEC #: [id number] RECD: 02/26/22 12:29 STATUS: SOUAnderson REQ #: [id number] IZZY: 02/26/22 10:[address]: Shirley York DEPT: Surgical Specimen RECD BY: Kalpana Grimes ENTERED: 02/26/22 12:31 SP TYPE: UTER OTHR DR: COURTNEY DIOR NP Tissues: 1 - UTERUS W OR W/O OVARIES(NOT TUMOR/PROLAPSE) Procedures: GROSS AND MICRO LEVEL 5 Comments: [id number]
[2022-02-26] MEDS: Lidocaine 2% Jelly 6 ML SYR (11:02)
[2022-02-26] MEDS: Omnipaque 300 MG/ML 50 ML BTL (11:15)
--- NOTE | 2022-02-26 11:30 | DI.RAD_ITS ---
Exam(s) XR RETROGRADE IN OR EXAM: XR RETROGRADE IN OR CLINICAL HISTORY: left renal stone. TECHNIQUE: 2D digital imaging was performed. COMPARISON: No exams were available for comparison FINDINGS: Fluoroscopy provided during side urologic procedure. See procedure report for details. Total fluoroscopy time 11.6 seconds Cumulative dose 3.9mGy IMPRESSION: DATA REPOSITORY: RADIATION DOSE DELIVERED:
--- NOTE | 2022-02-26 11:31 | ROE_ITS ---
Date of service: 02/26/22 Time of Service: 11:31 Operative Note Operative Note DATE OF PROCEDURE: 02/26/22 PRE-OP DIAGNOSIS: Symptomatic fibroid uterus with anemia POST-OP DIAGNOSIS: same Left renal calculus PROCEDURE: Laparoscopically assisted vaginal hysterectomy with bilateral salpingectomy. Bergeron's culdoplasty . cystoscopy and placement of left ureteral stent per Dr. Littlejohn SURGEON: Shirley York ASSISTING SURGEON: Margoth Villeda ANESTHESIA TYPE: General LMA/ETT Refer to Anesthesia Record ESTIMATED BLOOD LOSS: 400 PATHOLOGY: other (Uterus and bilateral fallopian tubes for examination) COMPLICATIONS: None Patient was transported to: PACU Patient's condition: stable Indications: Symptomatic fibroid uterus with ongoing anemia Findings: 12 to 14-week size bulky fibroid uterus. Normal-appearing ovaries bilaterally. 2 cm right paratubal cyst Procedure Description: After full informed consent was obtained and negative status verified, patient was taken the operating suite with an IV running. She is placed in dorsal supine position and endotracheal intubation performed for the administration of general anesthesia with ease. At this point she was placed in the modified dorsolithotomy position and prepped and draped in usual sterile fashion. Exam under anesthesia revealed a uterus that was proximately 12 to 14 weeks size, globular, though mobile. There was no evidence of adnexal mass. At this point speculum was placed into the vaginal vault after Rey catheter was inserted for continuous bladder drainage. Single-tooth tenaculum was used to grasp the anterior lip of the cervix and a ZUMI uterine manipulator placed for uterine manipulation throughout the procedure. Tenaculum and speculum were then removed and attention was turned to the abdomen. At this point infraumbilical skin incision was made and the anterior abdominal wall elevated with sharp towel clips. Veress needle was inserted into the abdomen and with CO2 gas to a maximum pressure of 15 mmHg a pneumoperitoneum was created. A 10 mm camera was placed under direct visualization into the abdomen with an Optiview trocar. The entire abdomen was inspected and found to be atraumatic. Uterus was large, midline, bulky. At this point a second and third right and left lower quadrant trocar site were placed under direct visualization after infiltration of quarter percent Marcaine. The uterus was then elevated. Attention was turned to the right fallopian tube where there is noted to be a 2 cm paratubal cyst. The fallopian tube was elevated cautery tried acted and ligated. Tube and cystic structure were removed from the abdomen. Similar procedure was carried out on the left fallopian tube. At this point the right round ligament was identified cautery transected and the broad ligament was opened. The anterior lip of ligament was sharply dissected to create the bladder flap. The right uterine artery and vein were cauterized. A similar procedure was carried on the left round ligament, left, and the remainder of the bladder flap was created. The left uterine vessels, artery and vein were both cauterized. At this point the abdomen was again inspected. All pedicles were hemostatic and attention was returned to the vaginal vault. At this point CO2 gas and light were discontinued speculum inserted into the vaginal vault and a Alma clamp used to grasp the anterior and posterior lips of the cervix. With a circumferential incision using cautery the cervical vaginal interface was incised. The posterior cul-de-sac was entered sharply and the right and left uterosacral cardinal complex was grasped transected and suture-ligated. With meticulous sharp dissection the anterior cul-de-sac was entered sharply. The uterine pedicles were then grasped in a systematic fashion first on the left than on the right. These were suture-ligated allowing delivery of the uterus and cervix through the vaginal incision. On the left utero-ovarian pedicle pedicle there was noted to be 1 area that was not hemostatic which was oversewn with a [id number] suture. At this point pedicles were inspected and found to be hemostatic. Due to a small amount of enterocele a Bergeron's culdoplasty was performed in the usual fashion. Bladder was inspected and found to be atraumatic. The vaginal cuff was then closed using 0 Vicryl suture in a running locked fashion. At this point attention was then returned to the abdomen where pneumoperitoneum recreated and pedicles inspected. There was noted to be 1 area at the vaginal cuff that was not hemostatic which was cauterized and 1 area near to the right uterine vessels which was mom hemostatic and hemostasis achieved with 2 clips. CO2 gas was decreased to a maximum pressure of 5 mmHg and all pedicles were found to be hemostatic. There is an area of the bladder that was slightly traumatized and somewhat oozy therefore a piece of Surgicel placed over the area to achieve hemostasis. Again all pedicles were inspected and found to be hemostatic and at this point the procedure was terminated. CO2 gas was released and all trocars were removed. The fascial incision was closed using 0 Vicryl suture in a simple interrupted fashion. Umbilical and right and left lower quadrant incisions were closed with 4-0 undyed Monocryl. Steri-Strips and sterile dressings were placed. At this point upon completion of hysterectomy Dr. Littlejohn was present for procedure which would be a cystoscopy and left ureteral stent placement. Please see his note for dictation Complications: None apparent Findings: Normal-appearing ovaries. 2 cm right paratubal cyst. Bulky 12 to 14- week size uterus Fluids: Crystalloid per anesthesia EBL: 400 mL Pathology: Uterus, cervix, fallopian tubes for examination.
--- NOTE | 2022-02-26 11:34 | W.PM.OP ---
Date of service: 02/26/22 Time of Service: 11:34 Operative Note Operative Note DATE OF PROCEDURE: 02/26/22 PRE-OP DIAGNOSIS: Left renal stone POST-OP DIAGNOSIS: same PROCEDURE: Cystoscopy, left retrorade pyelogram, insert left ureteral stent SURGEON: Arsh Littlejohn ANESTHESIA TYPE: General LMA/ETT Refer to Anesthesia Record ESTIMATED BLOOD LOSS: 0 PATHOLOGY: none sent COMPLICATIONS: None Patient was transported to: PACU Patient's condition: stable Implants: 6 Ecuadorean by 22 to 30 cm left ureteral stent Indications: This is a 46-year-old woman who has a history of multiple kidney stones. She has had ESWL treatments at other institutions previously. She had a recent ER visit for left flank pain and hematuria. She was found to have a 14 mm left renal stone. She also has dysfunctional vaginal bleeding and requires hysterectomy. She is agreeable to placement of a ureteral stent at the same time as the hysterectomy. This will temporize her stone and prevent it from becoming obstructive until we are able to do a more definitive stone treatment. Findings: Right ureter intact with clear urine and peristatlsis noted Left urete intact/large left renal stone Procedure Description: The patient was already under general anesthesia from her hysterectomy procedure. She was in the dorsal lithotomy position. Her genitalia was prepped. 2% Xylocaine jelly was instilled at the urethral meatus. A 22 Ecuadorean rigid cystoscope was passed through the urethra into the bladder. The bladder was inspected with a 30 degree lens. The right ureteral orifice appeared normal. It peristalsed normally and we are able to see clear urine coming from the orifice. The left orifice also appeared normal and peristalsis. I was able to cannulate the left orifice with a 6 Ecuadorean access catheter. I injected Omnipaque through the access catheter under fluoroscopic guidance and outlined her large renal stone. I then passed a Glidewire through the lumen of the access catheter and removed the catheter leaving the wire in place. I then passed a 6 Ecuadorean variable length stent over the wire. We positioned the stent such that the proximal end was curled up in the upper pole calyx and the distal end was curled within the bladder. The positioning of the stent was confirmed with both fluoroscopically and cystoscopically. The scope was then removed. A 16 Ecuadorean Rey catheter was passed back through the urethra into the bladder. The catheter balloon was inflated with 10 cc of sterile water and the catheter was hooked to gravity drainage. The patient tolerated the procedure well. There were no complications. We will plan on a definitive treatment for her stone once she recovers from her hysterectomy.
[2022-02-26] MEDS: Droperidol 5 MG/2 ML VIAL 0.625 MG IVP ×2 (11:50→12:07)
[2022-02-26] MEDS: ACETAMINOPHEN 1,000 MG/100 ML BTL 400 MG IVPB (12:30)
--- NOTE | 2022-02-26 12:32 | W.ANESPOSTOP ---
Postoperative Evaluation Date, Time and Location Date Performed: 02/26/22 Time Performed: 12:32 Patient Location: PACU Vital Signs Most Recent Imported Vital Signs: Most Recent Vital Signs Temp Pulse Resp BP Pulse Ox 36.7 C 73 18 96/59 L 94 02/26/22 12:12 02/26/22 12:12 02/26/22 12:12 02/26/22 12:12 02/26/22 12:12 Pain Score Most Recent Pain Score: Most Recent Pain Score Pain Level 8 02/26/22 06:18 Assessment Mental Status: Awake (Alert & Oriented to Patient Baseline) Airway and Respiratory Function: Patent airway with normal (patient baseline) respiratory exam Cardiovascular Function: Hemodynamically Stable Hydration Status: Adequately Hydrated Nausea & Vomiting: No Nausea or Vomiting Pain: Pain is tolerable per patient Peripheral Nerve Block: Patient did not receive a nerve block
[2022-02-26] MEDS: HYDROmorphone 2 MG/ML VIAL IVP ×4 (13:30→14:19)
[2022-02-26] MEDS: LORazepam 2 MG/ML VIAL 0.5 MG IVP ×3 (14:00→14:40)
[2022-02-26] MEDS: Ketorolac 30 MG/ML VIAL IVP (14:01)
[2022-02-26] MEDS: oxyCODONE 5 MG TAB 10 MG PO ×2 (16:25→20:17)
--- NOTE | 2022-02-26 16:43 | W.PM.PROGNOT ---
Date of Service Date of service: 02/26/22 Time of Service: 16:43 Assessment and Plan Assessment and plan (1) Status post laparoscopic assisted vaginal hysterectomy (LAVH): Status: Acute Assessment and plan: Ambulate, advance diet, attempt pain control with oral pain medication. Monitor vital signs and blood pressure. Anticipate discharge home 02/27/2022 (2) Renal calculus: Status: Chronic Subjective Subjective Interval history since last seen: Patient seen this evening status post laparoscopically assisted vaginal hysterectomy with bilateral salpingectomy and cystoscopy for placement of left ureteral stent. Overall she is doing reasonably well. She is having some pain control issues. This is not unexpected in light of her previous history of pain management issues. She has been tolerating regular diet her Rey catheter is out and she is ambulating without difficulty. Exam Const General: cooperative, healthy appearing, comfortable and no acute distress Eyes General: appearance normal, both eyes and all related structures Resp Effort & Inspection: normal respiratory effort Cardio Rate: regular rate Rhythm: regular rhythm Neuro General: patient alert, patient awake and patient oriented x3 Extrem General: no clubbing, cyanosis or edema Objective Last Vital Signs Temp 97.9 F 02/26/22 16:00 Pulse 82 02/26/22 16:00 Resp 16 02/26/22 16:00 BP 128/81 02/26/22 16:00 Pulse Ox 94 02/26/22 16:00
[2022-02-26] MEDS: Simethicone 80 MG CHEW PO ×2 (18:29→22:28)
[2022-02-26] MEDS: Docusate Sodium 100 MG CAP PO (20:16)
[2022-02-26] MEDS: Metoprolol 25 MG TAB PO (20:16)
[2022-02-26] MEDS: LORazepam 0.5 MG TAB PO (20:17)
[2022-02-26] MEDS: Potassium Chloride 20 MEQ TABCR PO (20:17)
[2022-02-26] MEDS: Ketorolac 30 MG/ML VIAL 15 MG IVP (20:18)
[2022-02-27] MEDS: Ketorolac 30 MG/ML VIAL 15 MG IVP ×2 (02:13→07:45)
[2022-02-27] MEDS: oxyCODONE 5 MG TAB 10 MG PO ×3 (02:14→10:13)
[2022-02-27] MEDS: LORazepam 0.5 MG TAB PO ×2 (06:06→10:17)
[2022-02-27] MEDS: Methadone Liquid 10 MG/ML 11 EACH PO (07:16)
[2022-02-27 07:30] LABS: Abs Immature Grans 0.08 10^3/uL (0.0-0.06); Absolute Lymphocyte Count 0.67 10^3/uL (1.2-3.4); Basophils % 0.1; HCT 33.1 % (36.0-46.0); HGB 10.3 g/dL (11.2-15.7); Immature Grans % 0.6; MCH 28.5 pg (27.0-33.0); MCHC 31.1 % (32.0-36.0); MCV 91 fL (80-95); MPV 9.6 fL (8.0-11.0); Monocytes % 5.8; Neutrophils % 88.5; Platelet Count 213 10^3/uL (130-400); RBC 3.62 10^6/uL (3.93-5.22); RDW-SD 46.4 fL; WBC 13.34 10^3/uL (4.4-10.8)
[2022-02-27 07:42] LABS: Absolute Basophil Count 0.01 10^3/uL (0.0-0.2); Absolute Monocyte Count 0.77 10^3/uL (0.1-0.8); Absolute Neutrophil Count 11.81 10^3/uL (1.2-6.7)
[2022-02-27] MEDS: Omeprazole 20 MG CAPCR PO (07:42)
[2022-02-27] MEDS: Docusate Sodium 100 MG CAP PO (07:42)
[2022-02-27] MEDS: Normal Saline Flush 10 ML SYR IV (07:46)
[2022-02-27 07:50] VITALS: BP 116/70; PULSE 78; RESP 14; TEMP 37.1; O2SAT 97
[2022-02-27] MEDS: Metoprolol 25 MG TAB PO (07:59)
[2022-02-27] MEDS: Chlorthalidone 25 MG TAB PO (08:00)
[2022-02-27] MEDS: Lisinopril 10 MG TAB 30 MG PO (08:02)
[2022-02-27] MEDS: Potassium Chloride 20 MEQ TABCR PO (08:02)
[2022-02-27] MEDS: amLODIPine 5 MG TAB PO (08:03)
--- NOTE | 2022-02-27 08:11 | W.PM.PROGNOT ---
Date of Service Date of service: 02/27/22 Time of Service: 08:11 Assessment and Plan Assessment and plan (1) Status post laparoscopic assisted vaginal hysterectomy (LAVH): Status: Acute Assessment and plan: Postoperative day #1 status post laparoscopically assisted hysterectomy with bilateral salpingectomy and left ureteral stent placement per urology. Doing well. Ambulating, tolerating regular diet pain medication with stable vital signs. Hemoglobin is stable this morning. Discharge home today. Follow-up in the office in 2 and 6 weeks. Prescription sent, instructions given. Subjective Subjective Patient reports: no new complaints, feels better, pain is less, tolerating a regular diet, voiding w/o difficulty and flatus; denies shortness of breath or fever Exam Narrative Exam Narrative: Patient seen and examined this morning doing well. No complaints. Pain is improved. Ambulating, tolerating regular diet and oral pain medication Const General: cooperative, healthy appearing, comfortable, no acute distress and well developed HENMT Head: normal to inspection Eyes General: appearance normal, both eyes and all related structures Resp Effort & Inspection: normal respiratory effort Auscultation: clear to auscultation bilaterally Cardio Rate: regular rate Rhythm: regular rhythm GI Inspection: normal to inspection, non-distended and incision (Dressed, clean, dry) Skin General skin exam: no rashes or lesions noted Extrem General: normal to inspection, no clubbing, cyanosis or edema and no calf tenderness Objective Last Vital Signs Temp 98.2 F 02/26/22 19:30 Pulse 87 02/26/22 19:30 Resp 16 02/26/22 19:30 BP 126/76 02/26/22 19:30 Pulse Ox 97 02/26/22 19:30 Laboratory Results - last 24 hr 02/27/22 07:25 WBC 13.34 H RBC 3.62 L Hgb 10.3 L D Hct 33.1 L MCV 91 MCH 28.5 MCHC 31.1 L D RDW 14.0 Plt Count 213 MPV 9.6 Immature Gran % 0.6 Neutrophils % 88.5 Lymphocytes % 5.0 Monocytes % 5.8 Eosinophils % 0.0 Basophils % 0.1 Nucleated RBC % 0.0 Absolute Neutrophils 11.81 H Absolute Lymphocytes 0.67 L Absolute Monocytes 0.77 Absolute Eosinophils 0.00 Absolute Basophils 0.01
--- NOTE | 2022-02-27 10:36 | W.PM.DS.N ---
Date of service: 02/27/22 Time of Service: 10:36 DS: Diagnosis Discharge Diagnosis (1) Status post laparoscopic assisted vaginal hysterectomy (LAVH): Status: Acute Asessment and Plan: Postoperative day #1 status post laparoscopically assisted vaginal hysterectomy with left ureteral stent placement. She is doing well. She will be discharged home. She will be seen back in the office in 2 and 6 weeks. All questions were answered. Discharge Plan Disposition Patient Disposition: HOME Condition: Good Discharge Details Reason For Visit: Laparoscopically assisted vaginal hysterectomy Admit Date/Time: 02/26/22 06:05 Admit Provider: Shirley York Attending Provider: Shirley York Primary Care Provider: COURTNEY DIOR Hospital Course Hospital Course: Patient underwent a laparoscopically assisted vaginal hysterectomy with bilateral salpingectomy and cystoscopy with placement of left ureteral stent for renal calculus. Cystoscopy and stent placement was performed per urology. Her surgical procedure was uncomplicated. She had a routine postoperative course and was discharged home postoperative day #1 ambulating, tolerating regular diet and oral pain medication with stable vital signs. She will be seen in the office postoperatively in 2 and 6 weeks Home Meds and New Rx's Prescriptions: New docusate sodium [Colace] 100 mg Capsule 100 mg PO BID Qty: 30 0RF ibuprofen 600 mg Tablet 600 mg PO Q6H PRN PRNQty: 30 1RF oxycodone 5 mg Tablet 10 mg PO Q4H PRN PRNQty: 10 0RF Continued potassium chloride 20 mEq tablet extended release 20 meq PO BID Qty: 30 0RF amlodipine 5 mg tablet 5 mg PO DAILY Qty: 30 0RF lorazepam [Ativan] 0.5 mg tablet 0.5 mg PO BID PRN (Reason: anxiety) Qty: 10 0RF omeprazole 20 mg capsule,delayed release(DR/EC) 20 mg PO DAILY Label Comments: Take 1 capsule by mouth once a day quetiapine [Seroquel] 50 mg tablet 50 mg PO DAILY Hold Instructions: Home Medication placed on hold at Doctor's office Label Comments: 1 tablet by mouth once a day chlorthalidone 25 mg tablet 25 mg PO DAILY metoprolol tartrate 50 mg tablet 25 mg PO BID lisinopril 40 mg tablet 30 mg PO DAILY methadone 5 mg/5 mL Solution 110 mg PO DAILY Discontinued norethindrone acetate [Aygestin] 5 mg tablet 20 mg PO BID Qty: 240 2RF Discharge Instructions Stand Alone Forms: [employer] Under[employer] SurgeryW/Incision Activity:: Pelvic rest, no heavy lif Equipment/Supplies:: No Equipment Needed Diet:: As Tolerated Discharge Orders Discharge Orders: Discharge Order (Routine); Ordered 02/27/22 Ordered By: Shirley York DS: Summary Time Spent with Patient providing and/or coordinating discharge services: Greater than 30 minutes Status at Discharge Functional status at discharge: independent ambulation Overall status at discharge: patient is progressing back to baseline Mental Status: mental status grossly normal Speech and Movement: speech and movement normal Mood: congruent mood Affect: normal affect Exam Narrative Exam Narrative: See physical exam from progress note dated 02/27/2022 Psych Mental Status: mental status grossly normal Speech and Movement: speech and movement normal Mood: congruent mood Affect: normal affect DS: Data Vitals/I&O Vitals and I&O: Vital Signs Temperature 98.8 F 02/27/22 07:50 Temperature Source Oral 02/27/22 07:50 Pulse 78 02/27/22 07:50 Pulse Rhythm Regular 02/27/22 07:50 Respiratory Rate 14 02/27/22 07:50 Respiratory Effort 02/27/22 07:50 Respiratory Depth Normal 02/27/22 07:50 Respiratory Pattern Normal 02/27/22 07:50 Blood Pressure 116/70 02/27/22 07:50 Pulse Oximetry 97 02/27/22 07:50 Respiratory End-tidal CO2 41 02/26/22 14:15 Oxygen Delivery Method Room Air 02/27/22 07:50 Oxygen Flow Rate 0 02/27/22 07:50 Pain Level 9 02/27/22 10:13 Intake & Output 02/26/22 02/26/22 02/27/22 11:59 23:59 11:59 Intake Total 650 / 750 100 / 750 Output Total 400 / 500 100 / 500 Balance 250 / 250 0 / 250 Weight 220 lb 10.923 oz Intake: IV 650 / 750 100 / 750 Oral 0 / 0 0 / 0 Output: Urine 100 / 100 Estimated Blood Loss 400 / 400 Other: Urine Color Yellow Yellow Yellow Urine Appearance Clear Clear Clear Emesis Description None None Data Completed and Pending Labs on day of discharge: Labs from last 24 hours 02/27/22 07:25 WBC 13.34 H RBC 3.62 L Hgb 10.3 L D Hct 33.1 L MCV 91 MCH 28.5 MCHC 31.1 L D RDW 14.0 Plt Count 213 MPV 9.6 Immature Gran % 0.6 Neutrophils % 88.5 Lymphocytes % 5.0 Monocytes % 5.8 Eosinophils % 0.0 Basophils % 0.1 Nucleated RBC % 0.0 Absolute Neutrophils 11.81 H Absolute Lymphocytes 0.67 L Absolute Monocytes 0.77 Absolute Eosinophils 0.00 Absolute Basophils 0.01 PFSH All Active Problems Status post laparoscopic assisted vaginal hysterectomy (LAVH) (Acute) With bilateral salpingectomy Anxiety (Chronic) Headache (Acute) Hypertension (Chronic) Abnormal uterine bleeding (AUB) (Acute) Acute flank pain (Acute) Uterine fibroid (Acute) Renal calculus (Chronic) Medical History Gout Hx of drug abuse 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
== END 2022-02-27 11:00 | disposition home or self-care (01) | DRG 743 ==
LOC: PDS 09:59 → OBS 15:02
PROVIDERS: Urology; Admitting Provider Obstetrics & Gynecology; PCP Nurse Practitioner Family; Visit Provider Obstetrics & Gynecology
PROC: 0UT9FZZ Resection of Uterus, Via Natural or Artificial Opening With Percutaneous Endoscopic Assistance (ICD-10-PCS; CPT 58552; principal; 2022-02-26 07:30)
PROC: 0UT9FZZ Resection of Uterus, Via Natural or Artificial Opening With Percutaneous Endoscopic Assistance (ICD-10-PCS; CPT 58661; 2022-02-26 07:30)
PROC: 0T9780Z Drainage of Left Ureter with Drainage Device, Via Natural or Artificial Opening Endoscopic (ICD-10-PCS; CPT 74450; 2022-02-26 07:30)
DX: D25.9 Leiomyoma of uterus, unspecified (principal); N20.0 Calculus of kidney; N81.5 Vaginal enterocele; M10.9 Gout, unspecified; F41.9 Anxiety disorder, unspecified; Z86.73 Personal history of transient ischemic attack (TIA), and cerebral infarction without residual deficits; I10 Essential (primary) hypertension; D64.9 Anemia, unspecified; N83.8 Other noninflammatory disorders of ovary, fallopian tube and broad ligament
CPT/HCPCS: 58552; 57268; 52332; 52005; 36415; 74420; 85025; 88307; J0131; J0690; J1100; J1790; J1885; J2060; J2250; J2370; J2405; J2704; J3010; Q9967

== ENCOUNTER 2022-03-02 09:46 | Inpatient (IN) | payer BC, MEDICAID, SELFPAY ==
[2022-03-02] VITALS (23 sets, daily range): BP systolic 109–141; BP diastolic 65–93; PULSE 74–88; RESP 14–34; TEMP 36.7–37.3; O2SAT 95–99
--- NOTE | 2022-03-02 09:58 | ED.GENADUL_ITS ---
Discharge Plan Disposition Patient Disposition: [facility] INPATIENT Condition: Stable Discharge Details Chief Complaint: Fever Clinical Impression: Pelvic abscess in female, Status post laparoscopic assisted vaginal hysterectomy (LAVH) Admit Date/Time: 03/02/22 14:08 Admit Provider: Gwendolyn Davis Attending Provider: Gwendolyn Davis Primary Care Provider: COURTNEY DIOR ED Provider: Deepa Mckeon Discharge Instructions Activity:: Activity as Tolerated Equipment/Supplies:: No Equipment Needed Diet:: As Tolerated Discharge Orders Discharge Orders: Discharge Order (Routine); Ordered 03/04/22 Ordered By: Shirley Yokr Discharge Data Discharge Date/Time-TO BE ENTERED AT DEPARTURE: 03/02/22 14:38 Medical Decision Making Patient is a pleasant 46-year-old female with past medical history pertinent for anxiety, hypertension, uterine fibroids, abnormal uterine bleeding, renal calculi. Patient underwent surgical intervention 4 days ago and presents today with chief complaint of fever, pain, nausea/vomiting. She reports that the time that she was discharged from the hospital she is feeling quite well, pain is well managed. Patient is chronically on methadone, has been augmenting with Tylenol and ibuprofen as discussed. Had not been having any difficulty voiding. However, yesterday she began feeling diaphoretic with chills, increased abdominal discomfort, particularly low midline as well as towards the left flank. She states that she also began having urinary incontinence which is new for her and was not present at the time patient was discharged home. She states that she does have some control but is wearing depends to help with the incontinence. She denies any dysuria. States that this has remained slightly bloody since the time of surgery. Denies any vaginal bleeding. Denies any change in bowel habits, had a normal bowel movement this morning. Chart review reveals the patient was discharged from here on 02/27/2022 status post laparoscopically assisted vaginal hysterectomy, bilateral salpingectomy with cystoscopy and left ureteral stent placement. Was discharged on this as well as doing well, tolerating regular diet all pain medication, On exam, patient appears acutely ill. Her vital signs are hemodynamically stable. However, patient is diffusely diaphoretic, appears shaky. She does have left-sided CVA tenderness, midline pain as well as pain more diffusely including rebound tenderness. Concerned for possible infectious etiology. Also considered displacement of stent, bleeding, uncontrolled postoperative pain vs. other. Will obtain labs and CT imaging. Concerned for patient becoming septic. Will hydrate, treat pain/nausea and begin on abx. Let urology and CATAPULT AND ARRESTING GEAR OFFICER know that patient is here and appears acutely ill. Labs concerning for WBC 14, H&H stable, lactate 1.6, hematuria. CT reviewed by radiologist, concerning for abscess. Stent in appropriate position. Dr. Littlejohn reviewed the UA and imaging, feels that blood is to be expected at this point in postoperative care. Does not feel that findings suggest infection involving the stent. Consulted with Dr. Davis who agrees to admission for continued management of postoperative abscess. Patient in agreemetn with this plan. She is more comfortable with above interventions. HPI General Date/Time Provider Initiated Documentation: 03/02/22 09:58 . Limitations to Documentation: no limitations . Information obtained by: patient, RN notes reviewed and old records reviewed . History of Present Illness 46 year old F presents to the emergency department with the chief complaint of lower abdominal pain, fevers/chills, nausea, malaise, described as severe, with intensity rated at 10. Quality is described as stabbing, and is localized to the abdomen. Patient flank (left). Patient started experiencing this day(s) (1) and it has been constant. No relieving factors improve symptom(s), No exacerbating factors reported . Patient notes diaphoresis, fever/chills, loss of appetite, malaise and nausea/vomiting; denies chest pain, cough, rash, shortness of breath and weakness. Patient did receive the following treatments prior to arrival, none (not able to keep down ) Related Data Home Medications Medication Instructions Recorded Confirmed amlodipine 5 mg tablet 5 mg PO DAILY #30 tabs 09/24/21 03/02/22 lorazepam 0.5 mg tablet (Ativan) 0.5 mg PO BID PRN anxiety #10 tabs 09/24/21 03/02/22 chlorthalidone 25 mg tablet 25 mg PO DAILY 10/25/21 03/02/22 lisinopril 40 mg tablet 30 mg PO DAILY 10/25/21 03/02/22 metoprolol tartrate 50 mg tablet 25 mg PO BID 10/25/21 03/02/22 omeprazole 20 mg capsule,delayed 20 mg PO DAILY 10/25/21 03/02/22 release methadone 5 mg/5 mL oral solution 110 mg PO DAILY 02/25/22 03/02/22 docusate sodium 100 mg capsule 100 mg PO BID #30 caps 02/27/22 03/02/22 (Colace) ibuprofen 600 mg tablet 600 mg PO Q6H PRN PRN #30 tabs 02/27/22 03/02/22 metronidazole 500 mg tablet 500 mg PO Q12H #24 tabs 03/04/22 oxycodone-acetaminophen 5 mg-325 1 tab PO Q6H PRN #14 tabs 03/04/22 mg tablet (Percocet) sulfamethoxazole 800 1 tab PO Q12H #24 tabs 03/04/22 mg-trimethoprim 160 mg tablet (Bactrim DS) ondansetron HCl 4 mg tablet 4 mg PO TID-QID PRN nausea and 03/05/22 vomiting #20 tabs Previous Rx's Medication Instructions Recorded amlodipine 5 mg tablet 5 mg PO DAILY #30 tabs 09/24/21 lorazepam 0.5 mg tablet (Ativan) 0.5 mg PO BID PRN anxiety #10 tabs 09/24/21 docusate sodium 100 mg capsule 100 mg PO BID #30 caps 02/27/22 (Colace) ibuprofen 600 mg tablet 600 mg PO Q6H PRN PRN #30 tabs 02/27/22 metronidazole 500 mg tablet 500 mg PO Q12H #24 tabs 03/04/22 oxycodone-acetaminophen 5 mg-325 1 tab PO Q6H PRN #14 tabs 03/04/22 mg tablet (Percocet) sulfamethoxazole 800 1 tab PO Q12H #24 tabs 03/04/22 mg-trimethoprim 160 mg tablet (Bactrim DS) ondansetron HCl 4 mg tablet 4 mg PO TID-QID PRN nausea and 03/05/22 vomiting #20 tabs Allergies Allergy/AdvReac Type Severity Reaction Status Date / Time hayfever Allergy Uncoded 03/02/22 09:59 General TARA: 3 Review of Systems Constitutional Constitutional: Reports as per HPI Cardiovascular Cardiovascular: Reports as per HPI, Denies chest pain and Denies dyspnea Respiratory Respiratory: Reports as per HPI, Denies cough and Denies dyspnea Gastrointestinal Gastrointestinal: Reports as per HPI Musculoskeletal Musculoskeletal: Reports as per HPI Integumentary/Breasts Skin/Breast: Reports as per HPI and Denies rash Neurologic Neurologic: Reports as per HPI PFSH All Active Problems (Updated 03/05/22 @ 17:23 by KAMILA Lucia) Anemia (Chronic) Pelvic abscess in female (Acute) Status post laparoscopic assisted vaginal hysterectomy (LAVH) (Acute) With bilateral salpingectomy Anxiety (Chronic) Headache (Acute) Hypertension (Chronic) Abnormal uterine bleeding (AUB) (Acute) Uterine fibroid (Acute) Renal calculus (Chronic) Medical History Gout Hx of drug abuse 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 Exam Const General: uncomfortable, well developed, anxious and ill appearing acutely Nutritional Appearance: well nourished and overweight Orientation: alert and awake HENMT Head: normal to inspection Mouth: mucous membranes dry Resp Effort & Inspection: normal respiratory effort, able to speak in complete sentences and no respiratory distress Auscultation: clear to auscultation bilaterally, no rales, no rhonchi and no wheezes Cardio Rate: regular rate Rhythm: regular rhythm Heart Sounds: S1 normal and S2 normal GI Inspection: non-distended, incision (appear to be healing well, no erythema/warmth/discharge) and obesity Palpation: soft, not firm, guarding in the LLQ and in the RUQ, no masses, no pulsatile masses, not rigid, tender (diffuse) obturator sign positive and with rebound tenderness and No ascites Percussion: normal to percussion Auscultation: hyperactive bowel sounds Back/Spine/Pelvis Back: CVA tenderness (left) Skin General skin exam: other (incisions healing well, no evidence of superficial infection) Neuro General: patient alert and patient awake Cognition: normal cognition Speech: speech normal Gait: normal gait Psych Appearance: grossly normal and well kempt Mental Status: mental status grossly normal Speech and Movement: speech and movement normal
--- NOTE | 2022-03-02 10:15 | DI.CT_ITS ---
Exam(s) CT ABDOMEN PELVIS W EXAM: CT ABDOMEN PELVIS W CLINICAL HISTORY: diffuse pain, recent hysterectomy, ureteral stent. TECHNIQUE: Imaging Protocol: Axial computed tomography images with coronal and sagittal reformatted images were created and reviewed CONTRAST MATERIAL: Intravenous: Omnipaque 100cc Oral: None COMPARISON: CT CT RENAL COLIC WO from 01/28/2022 FINDINGS: VISUALIZED LUNG BASES: No nodules nor pleural effusions evident. ABDOMEN: LIVER: There are no focal hepatic lesions evident. Mild prominence of intrahepatic ducts. GALLBLADDER/BILIARY: Multiple small gallstones are noted on the dependent aspect of the gallbladder w ith average size 7-8 millimeters. There is no gallbladder wall edema. CBD is not dilated. PANCREAS: No evidence of pancreatic mass nor dilatation of the pancreatic duct. SPLEEN: Spleen size upper normal. No splenic lesions. Splenic and portal veins are patent. ADRENALS: There are no significant adrenal masses. KIDNEYS:There is a double-pigtail stent in the left ureter extending from the renal pelvis down into the urinary bladder. The previously described prominent calculus in left renal pelvis appears smalle r on the present study and is now located in the inferior pole calyx region and measures 9 x 6 millim eters. There are no calculi seen along the course of the left ureteral stent nor calculi within the urinary bladder.. ABDOMINAL AORTA: Abdominal aorta is not enlarged. LYMPH NODES:There is no retroperitoneal nor paraaortic adenopathy. ABDOMINAL WALL: No evidence of significant anterior abdominal wall nor inguinal hernia. PELVIS: There has been interval hysterectomy. GI: No evidence of appendicitis.There is now an abscess in pelvis which measures 5.5 cm wide by 5 cm AP by 3 cm craniocaudal. This is intimately related to the sigmoid, possibly related to an episode o f acute diverticulitis there also 2 surgical clips seen to the right of this collection, not previous ly present and there has been interval hysterectomy. LYMPH NODES: There is no intrapelvic nor inguinal adenopathy. REPRODUCTIVE: Hysterectomy URINARY BLADDER: Not distended. No gas therein. Left ureteral stent in place OSSEOUS: No significant osseous lesions. L4-5 chronic disc space narrowing. IMPRESSION: 1. Compared to the prior CT scan of 01/28/2022 there has been interval hysterectomy and placement of a left ureteral stent. 2. There is now an abscess in the pelvis measuring 5.5 by 5 by 3 cm 3. The previously present calculus in left renal pelvis is decreased in size, presently measuring 9 x 6 millimeters and presently located in the lower pole calyx region. There are no calculi seen along the course of the left ureteral stent nor within the urinary bladder. 4. Cholelithiasis again noted. No evidence of acute cholecystitis. Report called by myself to ER provider RADIATION DOSE DELIVERED: 1,665.97mGy.cm Total DLP DATA REPOSITORY: All CT scans at this facility are submitted to the National Radiology Data Registry (NRDR) Dose Index Registry (DIR) with the [employer] (ACR). RADIATION OPTIMIZATION: All CT scans at this facility use at least one of these dose optimization te chniques: automated exposure control; mA and/or kV adjustment per patient size (includes targeted exa ms where dose is matched to clinical indication); or iterative reconstruction.
--- NOTE | 2022-03-02 10:30 | RT.EKG_ITS ---
APPROVED REPORT Exam: Resting ECG Reason for Exam: diaphoretic, on methadone Patient Location: E HR:77 bpm ECG Measurements Heart Rate 77 AXIS AK 149 P -15 QRSd 107 QRS -4 QT 405 T 40 QTc 459 Conclusion Sinus rhythm...normal P axis, V-rate 60- 99 no STEMI, non-diagnostic EKG I have reviewed and interpreted ECG and agree with software generated interpretation.
[2022-03-02 10:49] LABS: Lactate 1.6 mmol/L (0.6-1.4)
[2022-03-02 10:50] LABS: Abs Immature Grans 0.11 10^3/uL (0.0-0.06); Absolute Basophil Count 0.07 10^3/uL (0.0-0.2); Absolute Eosinophil Count 0.09 10^3/uL (0.0-0.7); Absolute Lymphocyte Count 0.74 10^3/uL (1.2-3.4); Absolute Monocyte Count 1.33 10^3/uL (0.1-0.8); Absolute Neutrophil Count 11.95 10^3/uL (1.2-6.7); Basophils % 0.5; Eosinophils % 0.6; HCT 37.3 % (36.0-46.0); HGB 11.8 g/dL (11.2-15.7); Immature Grans % 0.8; Lymphocytes % 5.2; MCH 28.3 pg (27.0-33.0); MCHC 31.6 % (32.0-36.0); MCV 89 fL (80-95); MPV 9.6 fL (8.0-11.0); Monocytes % 9.3; Neutrophils % 83.6; Nucleated RBC 0.1 % (0.0-0.3); Platelet Count 290 10^3/uL (130-400); RBC 4.17 10^6/uL (3.93-5.22); RDW 13.3 % (11.7-14.6); RDW-SD 43.8 fL; WBC 14.29 10^3/uL (4.4-10.8)
[2022-03-02 11:05] LABS: ALT 41 U/L (14-59); AST 28 U/L (15-37); Albumin 3.3 g/dL (3.4-5.0); Alkaline Phosphatase 29 U/L (46-116); Anion Gap 11.4 mmol/L (3-11); BUN 22 mg/dL (7-18); Bilirubin, Total 0.8 mg/dL (0.2-1.0); CO2 25.6 mmol/L (21.0-32.0); Calcium 9.2 mg/dL (8.5-10.1); Chloride 98 mmol/L (98-107); Estimated GFR 59.69 (mL/min/1.73m2); Glucose 129 mg/dL (74-106); Magnesium 2.2 mg/dL (1.8-2.4); Potassium 3.9 mmol/L (3.5-5.1); Sodium 135 mmol/L (136-145)
[2022-03-02] MEDS: HYDROmorphone 2 MG/ML VIAL 1 MG IVP (11:06)
[2022-03-02] MEDS: Normal Saline 1,000 ML 1000 ML IV (11:06)
[2022-03-02] MEDS: ACETAMINOPHEN 1,000 MG/100 ML BTL 400 MG IVPB (11:06)
[2022-03-02 11:27] LABS: Bilirubin Negative (Negative); Blood Large (Negative); Clarity Cloudy (Clear); Glucose Negative (Negative); Ketones Negative (Negative); Leukocyte Esterase Small (Negative); Nitrite Negative (Negative); Specific Gravity 1.025 (1.005-1.025)
[2022-03-02] MEDS: LORazepam 20 MG/10 ML VIAL IVP (11:29)
[2022-03-02] MEDS: PIPERACILLIN/TAZO 3.375 GM in Normal Saline 50 ML IVPB ×3 (11:30→23:42)
[2022-03-02 11:33] LABS: Bacteria Rare HPF (Negative); Crystals Negative HPF (Negative); Epithelial Cells Few HPF (Negative); Mucus Trace (Negative); RBC >50 HPF (0-2)
[2022-03-02 11:34] LABS: C & S Indicated? Yes
[2022-03-02] MEDS: Omnipaque 350 MG/ML 100 ML BTL IJ (12:11)
[2022-03-02] MEDS: Ondansetron 4 MG/2 ML VIAL IVP ×2 (13:30→17:50)
[2022-03-02] MEDS: HYDROmorphone 2 MG/ML VIAL IVP (13:35)
--- NOTE | 2022-03-02 14:14 | W.PM.HP.N ---
Date of service: 03/02/22 Time of Service: 14:14 Assessment and Plan Assessment and plan (1) Status post laparoscopic assisted vaginal hysterectomy (LAVH): Status: Acute Assessment and plan: Dr. York aware and will see pt tomorrow. (2) Pelvic abscess in female: Status: Acute Assessment and plan: Will admit for monitoring and IV abx. Will start Zosyn q6hrs IV Pain management prn History of Present Illness Narrative: Pt is POD#5 s/p LAVH with Dr. York for a large fibroid uterus as well as placement of a left ureteral stent for a kidney stone (by Dr. Singer). She was feeling well post-operatively until yesterday when she started to experience increasing abdominal/pelvic pain and feeling a bit more tired. This morning when she awoke she had fever and chills and n/v. She was unable to keep her methadone down this am. Therefore she called [facility] and was sent to the ED where she had a CT scan suspicious for pelvic abscess. Review of Systems Constitutional Constitutional: Reports chills and Reports fever(s) Cardiovascular Cardiovascular: Reports system reviewed and no additional complaints, except as documented Respiratory Respiratory: Reports system reviewed and no additional complaints, except as documented Gastrointestinal Gastrointestinal: Reports nausea and Reports vomiting Genitourinary Genitourinary: Reports system reviewed and no additional complaints, except as documented Musculoskeletal Musculoskeletal: Reports system reviewed and no additional complaints, except as documented PFSH All Active Problems (Updated 03/02/22 @ 17:44 by Gwendolyn Davis MD) Pelvic abscess in female (Acute) Status post laparoscopic assisted vaginal hysterectomy (LAVH) (Acute) With bilateral salpingectomy Anxiety (Chronic) Headache (Acute) Hypertension (Chronic) Abnormal uterine bleeding (AUB) (Acute) Uterine fibroid (Acute) Renal calculus (Chronic) Medical History Gout Hx of drug abuse 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 Meds Allergies and Home Medications Allergies Allergy/AdvReac Type Severity Reaction Status Date / Time hayfever Allergy Uncoded 03/02/22 09:59 Home Medications Medication Instructions Recorded Confirmed Type amlodipine 5 mg tablet 5 mg PO DAILY #30 tabs 09/24/21 03/02/22 Rx lorazepam 0.5 mg tablet (Ativan) 0.5 mg PO BID PRN anxiety #10 tabs 09/24/21 03/02/22 Rx chlorthalidone 25 mg tablet 25 mg PO DAILY 10/25/21 03/02/22 History lisinopril 40 mg tablet 30 mg PO DAILY 10/25/21 03/02/22 History metoprolol tartrate 50 mg tablet 25 mg PO BID 10/25/21 03/02/22 History omeprazole 20 mg capsule,delayed 20 mg PO DAILY 10/25/21 03/02/22 History release methadone 5 mg/5 mL oral solution 110 mg PO DAILY 02/25/22 03/02/22 History docusate sodium 100 mg capsule 100 mg PO BID #30 caps 02/27/22 03/02/22 Rx (Colace) ibuprofen 600 mg tablet 600 mg PO Q6H PRN PRN #30 tabs 02/27/22 03/02/22 Rx Exam Narrative Exam Narrative: Pt lying in bed in mild visible pain. HENMT Head: normocephalic and atraumatic GI Inspection: normal to inspection and abdominal wall ecchymosis (at incision sites) Palpation: soft and tender (mild upper abd, moder lower abd more in suprapubic region.) Extrem Other: No edema. No calf tenderness. Results Imaging CT scan - pelvis: report reviewed Labs Result diagrams: 03/02/22 10:42 03/02/22 10:42 Labs: Laboratory Results - last 24 hr 03/02/22 03/02/22 03/02/22 10:38 10:42 10:42 WBC RBC Hgb Hct MCV MCH MCHC RDW Plt Count MPV Immature Gran % Neutrophils % Lymphocytes % Monocytes % Eosinophils % Basophils % Nucleated RBC % Absolute Neutrophils Absolute Lymphocytes Absolute Monocytes Absolute Eosinophils Absolute Basophils VBG Lactate 1.6 H Sodium 135 L Potassium 3.9 Chloride 98 Carbon Dioxide 25.6 Anion Gap 11.4 H BUN 22 H Creatinine 1.0 Estimated GFR/1.73 m2 59.69 Glucose 129 H Calcium 9.2 Magnesium 2.2 Total Bilirubin 0.8 AST 28 ALT 41 Alkaline Phosphatase 29 L Total Protein 8.0 Albumin 3.3 L Urine Color Dark Yellow Urine Clarity Cloudy Urine pH 7.0 Ur Specific [place] 1.025 Urine Protein 100 H Urine Ketones Negative Urine Blood Large H Urine Nitrite Negative Urine Bilirubin Negative Urine Urobilinogen 1.0 H Ur Leukocyte Esterase Small H Urine RBC >50 H Urine WBC 3-5 Ur Epithelial Cells Few Urine Crystals Negative Urine Bacteria Rare Urine Casts 5-10 RBC Urine Mucus Trace Ur Culture Indicated? Yes Urine Glucose Negative 03/02/22 10:42 WBC 14.29 H RBC 4.17 Hgb 11.8 Hct 37.3 MCV 89 MCH 28.3 MCHC 31.6 L RDW 13.3 Plt Count 290 MPV 9.6 Immature Gran % 0.8 Neutrophils % 83.6 Lymphocytes % 5.2 Monocytes % 9.3 Eosinophils % 0.6 Basophils % 0.5 Nucleated RBC % 0.1 Absolute Neutrophils 11.95 H Absolute Lymphocytes 0.74 L Absolute Monocytes 1.33 H Absolute Eosinophils 0.09 Absolute Basophils 0.07 VBG Lactate Sodium Potassium Chloride Carbon Dioxide Anion Gap BUN Creatinine Estimated GFR/1.73 m2 Glucose Calcium Magnesium Total Bilirubin AST ALT Alkaline Phosphatase Total Protein Albumin Urine Color Urine Clarity Urine pH Ur Specific [place] Urine Protein Urine Ketones Urine Blood Urine Nitrite Urine Bilirubin Urine Urobilinogen Ur Leukocyte Esterase Urine RBC Urine WBC Ur Epithelial Cells Urine Crystals Urine Bacteria Urine Casts Urine Mucus Ur Culture Indicated? Urine Glucose Last Vital Signs Temp 98.1 F 03/02/22 13:27 Pulse 80 03/02/22 13:27 Resp 18 03/02/22 13:27 BP 141/93 H 03/02/22 13:27 Pulse Ox 98 03/02/22 13:27
[2022-03-02 14:34] LABS: Source Nasal/Nares
--- OUTSIDE RECORDS SUMMARY | 2022-03-02 14:42 | XMS_ITS | Encounter Summary ---
:1975 Author Organization [place] [address] Care Team Providers Name Role Phone Jocelyn Phipps APRN Primary Care Provider Reason for Referral Consultation (Routine) - Closed Specialty Diagnoses / Procedures Referred By Contact Refer red To Contact Obstetrics and Diagnoses Abnormal uterine bleeding (AUB) Nontraumatic intracerebral hemorrhage, unspecified Leiomyoma of uterus, unspecified Essential (primary) hypertension Shirley York DO [facility] Consultant 5[facility] Gynecology [address] [place] [phone] Phone: Fax: Referral ID Status Reason Start Date Expiration Date Visits V isits Requested Authorized [id number] Closed Consult, Test 01/09/2022 01/09/2023 1 1 & Treat PCP Updated and/or Approved Encounter Details Date Type Department Care Team Description 01/09/2022 Transcribe Orders eDH Incoming Shirley York DO Abnormal uterine Referrals [address] [place] [address] bleeding (AUB) [phone] [place] [address] Social History Tobacco Use Types Packs/Day Years Used Date Never Assessed Sex Assigned at Date Recorded Not on file documented as of this encounter Plan of Treatment Upcoming Encounters Date Type Specialty Care Team Description 03/26/2022 Office Visit Rheumatology Harriet Lezama APRN [facility] [place], [place] [address] (Wo rk) Scheduled Referrals Name Type Priority Associated Diagnoses Order S chedule Referral to Ob-Soap Tender Outpatient Referral Routine Abnormal uterin e Ordered: bleeding (AUB) 01/09/2022 documented as of this encounter Visit Diagnoses Diagnosis Abnormal uterine bleeding (AUB) documented in this encounter Care Teams Turbine Operator Relationship Specialty Start Date End Date Jocelyn Phipps, COTTON CLEANER PCP - General Family Medicine 11/03/21 [place] [address] documented as of this encounter
--- OUTSIDE RECORDS SUMMARY | 2022-03-02 14:42 | XMS_ITS | Encounter Summary ---
:1975 Author Organization [facility] Address [address] [place] [address] Care Team Providers Name Role Phone Jocelyn Phipps TYPESETTING MACHINE TENDER Primary Care Provider Encounter Details Date Type Department Care Team Description 11/04/2021 Lab Requisition [facility] Shirley York Encounter for other Pathology & [address] general examination Laboratory Medicine [facility] [id number] [address] [facility] [phone] [place] [address] (Work) [phone] Social History Tobacco Use Types Packs/Day Years Used Date Never Assessed Sex Assigned at Date Recorded Not on file documented as of this encounter Plan of Treatment Not on filedocumented as of this encounter Procedures Procedure Name Priority Date/Time Associated Diagnosis Comme nts SURGICAL PATHOLOGY Today 11/04/2021 15:00 Encounter for othe r Results for this EDT general examination procedur e are in the results section. documented in this encounter Results SURGICAL PATHOLOGY (11/04/2021 15:00 EDT) Note to Patient The following [facility] MEDICAL pathology results have CENTER been interpreted by LABORATORY your pathologist and SERVICES may be available to you before your health provider has had the opportunity to review them. Please allow time for your provider to receive these results and explore management options, if applicable. Final Diagnosis A. ENDOMETRIUM, BIOPSY: [facility] MEDICAL - Disordered patterned endometrium with focal secretor y changes CENTER - Negative for hyperplasia/malignancy LAB ORATORY SERVICES Diagnosis Comment Validation Architect slides of thi s case were reviewed at the intradepartmental consultation conference. [facility] Attestation There was significant [facility] MEDICAL Electr onically resident/fellow CENTER signed by Fr bailey, involvement in the LABORATORY Carly Bar on diagnostic evaluation SERVICES 022 at 1520 of this case. By the signature below, the attending physician certifies that they have personally conducted a gross and/or microscopic examination of the described specimens and rendered or confirmed the above diagnosis. Clinical History AUB; fibroid [facility] Gross Description A. [facility] MEDICAL Received in formalin paula d with proper patient identification (initials E, M) and endometrial Bx is an aggregate of rubbery strands of light benítez-pink tissue fragments and blood clot (2.0 x 1.8 x 0.4 cm). Entirely submitted in A1-A2. CENTER LABORATORY JUAN FOREMAN 11/05/2021 14:25 SERVICES Resident/Fellow: Meliza Arambula DO [facility] Performing Lab [facility] Scanned Images [facility] Specimen Tissue - Entire endometrium (body struct ure) Performing Organization Address City/State/ZIP Code Phon e Number [facility] [address] [place] [address] SERVICES documented in this encounter Visit Diagnoses Diagnosis Encounter for other general examination documented in this encounter Care Teams Pcas Relationship Specialty Start Date End Date Jocelyn Phipps, TYPESETTING MACHINE TENDER PCP - General Family Medicine - Primary 08/23/21 [address] [place] [address] documented as of this encounter
--- OUTSIDE RECORDS SUMMARY | 2022-03-02 14:42 | XMS_ITS | Encounter Summary ---
:1975 Author Organization [facility] Address [address] [place] [address] Care Team Providers Name Role Phone Jocelyn Phipps CRAB BACKER Primary Care Provider Encounter Details Date Type Department Care Team Description 11/05/2021 Lab Requisition [facility] Shirley York Encounter for other [facility] general examination Laboratory Medicine [facility] [address] [address] [facility] [phone] [place] [address] (Work) [phone] Social History Tobacco Use Types Packs/Day Years Used Date Never Assessed Sex Assigned at Date Recorded Not on file documented as of this encounter Plan of Treatment Not on filedocumented as of this encounter Procedures Procedure Name Priority Date/Time Associated Comments Diagnosis PAP TEST Today 11/04/2021 15:00 Encounter for other Resu lts for this EDT general examination procedur e are in the results section. HUMAN PAPILLOMAVIRUS Today 11/04/2021 15:00 Encounter for ot her Results for this (HPV) DETECTION-HIGH EDT general examination procedure are in RISK TYPES the results section. documented in this encounter Results HUMAN PAPILLOMAVIRUS (HPV) DETECTION-HIGH RISK TYPES (11/04/2021 15:00 EDT) Human Papillomavirus NegativeComment: No Negative [facility] (HPV) Detection-High E6 or E7 mRNA is CENTER LABORATOR Y Types detected from HPV SERVICES types 16,18,31,33,35,39,45 ,51,52,56,58,59,66, and 68 by butter printer mediated amplification. Specimen Pap Test - Cervix and/or Endocervix Performing Organization Address City/State/ZIP Code Phon e Number [facility] [address] [place] [address] SERVICES PAP TEST (11/04/2021 15:00 EDT) Specimens A. Cervix and/or [facility] Endocervix , ThinPrep CENTER Imaging System with LABORATORY Manual Evaluation SERVICES Specimen Adequacy Satisfactory for Evaluation - transformation zone component present [facility] Scant due to excessive inflammation CENTE R LABORATORY SERVICES General Negative for [facility] Categorization intraepithelial CENTER lesion or malignancy LABORATORY SERVICES Descriptive Shift in tracy [facility] Diagnosis present suggestive of CENTER bacterial vaginosis. LABORATORY SERVICES Attestation . [facility] Electronically CENTER signed by Carmen ballard, LABORATORY FIGUEROA Thakur( CP) SERVICES on 11/13/2021 at 0719 Clinical History See below [facility] SERVICES HPV The result for the Human Pap illomavirus (HPV) Detection-High Risk Types is Negative. No E6 or E7 mRNA is detected from HPV types 16,18,31,33,35,39,45,51,52,56,58,59,66, and 68 by butter printer mediated [facility] amplification.Testing was pe rformed on specimen [id number] and was resulted on 11/13/2021 0716 EDT by ALFONSO, LAB INSTRUMENT RESULTS IN [facility] LABORATORY SERVICES Performing Lab [facility] SERVICES Scanned Images [facility] SERVICES Specimen Pap Test - Cervix and/or Endocervix Performing Organization Address City/State/ZIP Code Phon e Number [facility] [address] [place] [address] SERVICES documented in this encounter Visit Diagnoses Diagnosis Encounter for other general examination documented in this encounter Care Teams Syrup Shed Supervisor Relationship Specialty Start Date End Date Jocelyn Phipps, SIOMARA PCP - General Family Medicine - Primary 08/23/21 [address] [place] [address] documented as of this encounter
--- OUTSIDE RECORDS SUMMARY | 2022-03-02 14:42 | XMS_ITS | Encounter Summary ---
:1975 Author Organization [facility] [place] [address] Care Team Providers Name Role Phone Jocelyn Phipps APRN Primary Care Provider Reason for Referral Diagnostic Test (Routine) - New Request Specialty Diagnoses / Procedures Referred By Contact Refer red To Contact Radiology Diagnoses Microhematuria Margoth Mccormick PA [facility] Rad Ct Scan Procedures CT Urogram [facility] [place] [address] [place] [address] Referral ID Status Reason Start Expiration Visits Visits Date Date Requested Authorized [id number] New Request Specialty 12/26/2021 06/28/2023 1 1 Service Requested Encounter Details Date Type Department Care Team Description 12/26/2021 Orders Only Urology Margoth Mccormick PA Microhematuria [facility] [place] [address] UROLOGY [phone] [place], [place] [address] (Wo rk) Social History Tobacco Use Types Packs/Day Years Used Date Never Assessed Sex Assigned at Date Recorded Not on file documented as of this encounter Plan of Treatment Upcoming Encounters Date Type Specialty Care Team Description 03/26/2022 Office Visit Rheumatology Harriet Lezama APRN [facility] RHEUMATOLOGY [place], [place] [address] (Wo rk) Scheduled Orders Name Type Priority Associated Diagnoses Order S chedule CT Urogram Imaging Routine Microhematuria Expected: (Approximate), Expires: 2021 Creatinine Lab Routine Microhematuria Expected: (Approximate), Expires: 2021 documented as of this encounter Visit Diagnoses Diagnosis Microhematuria Microscopic hematuria documented in this encounter Care Teams Exchange Clerk Relationship Specialty Start Date End Date Jocelyn Phipps, CLERICAL ASSISTANT PCP - General Family Medicine 11/03/21 [address] [place] [address] documented as of this encounter
--- OUTSIDE RECORDS SUMMARY | 2022-03-02 14:42 | XMS_ITS | Encounter Summary ---
:1975 Author Organization [facility] [place] [address] Care Team Providers Name Role Phone Jocelyn Phipps APRN Primary Care Provider Reason for Referral Consultation (Routine) - Authorized Specialty Diagnoses / Procedures Referred By Contact Refer red To Contact Rheumatology Diagnoses Sarcoidosis Jocelyn Phipps APRN [facility] Rheumatology 5c [address] [place], [place] [address] [place] [phone] Fax: Referral ID Status Reason Start Expiration Visits Visits Date Date Requested Authorized [id number] Authorized Consult, 02/10/2022 02/10/2023 6 6 Test & Treat PCP Updated and/or Approved Encounter Details Date Type Department Care Team Description 02/10/2022 Transcribe Orders eDH Incoming Referra ls Jocelyn Phipps APRN Sarcoidosis [phone] [address] [place], [place] [id number] (Wo rk) Social History Tobacco Use Types Packs/Day Years Used Date Never Assessed Sex Assigned at Date Recorded Not on file documented as of this encounter Plan of Treatment Upcoming Encounters Date Type Specialty Care Team Description 03/26/2022 Office Visit Rheumatology Harriet Lezama APRN [facility] [address] [place], [place] [address] (Wo rk) Scheduled Referrals Name Type Priority Associated Diagnoses Order S chedule Referral to Outpatient Referral Routine Sarcoidosis Ordered: Rheumatology 02/10/2022 documented as of this encounter Visit Diagnoses Diagnosis Sarcoidosis documented in this encounter Care Teams Lead Enterprise Architect Relationship Specialty Start Date End Date Jocelyn Phipps, MAT WORKER PCP - General Family Medicine 11/03/21 [address] [place] [address] documented as of this encounter
--- OUTSIDE RECORDS SUMMARY | 2022-03-02 14:42 | XMS_ITS | Encounter Summary ---
:1975 Author Organization [facility] Address [address] [place] [address] Care Team Providers Name Role Phone Jocelyn Phipps ART HISTORY PROFESSOR Primary Care Provider Encounter Details Date Type Department Care Team Description 02/26/2022 Lab Requisition [facility] Shirley York Encounter for other Pathology & [facility] general examination Laboratory Medicine [facility] [address] [address] [facility] [phone] [place] [address] (Work) [phone] Social History Tobacco Use Types Packs/Day Years Used Date Never Assessed Sex Assigned at Date Recorded Not on file documented as of this encounter Plan of Treatment Pending Results Name Type Priority Associated Diagnoses Date/Ti id SURGICAL PATHOLOGY Pathology Today Encounter for other ge neral 02/26/2022 8:38 EDT examination documented as of this encounter Visit Diagnoses Diagnosis Encounter for other general examination documented in this encounter Care Teams Electronic Sales And Service Technician Relationship Specialty Start Date End Date Jocelyn Phipps, SIOMARA PCP - General Family Medicine - Primary 08/23/21 [address] [place] [address] documented as of this encounter
--- OUTSIDE RECORDS SUMMARY | 2022-03-02 14:42 | XMS_ITS | Encounter Summary ---
:1975 Author Organization [facility] [address] Care Team Providers Name Role Phone Jocelyn Phipps APRN Primary Care Provider Reason for Referral Consultation (Routine) - Denied Specialty Diagnoses / Procedures Referred By Contact Refer red To Contact Rheumatology Diagnoses Sarcoidosis Jocelyn Phipps APRN [facility] Rheumatology 5c [address] [place], [place] [address] [place] [phone] Fax: Referral ID Status Reason Start Date Expiration Date Visits V isits Requested Authorized [id number] Denied Consult, 11/03/2021 11/03/2022 6 0 Test & Treat Encounter Details Date Type Department Care Team Description 11/03/2021 Transcribe Orders eDH Incoming Referra ls Jocelyn Phipps APRN Sarcoidosis [phone] [address] [place], [place] [id number] (Wo rk) Social History Tobacco Use Types Packs/Day Years Used Date Never Assessed Sex Assigned at Date Recorded Not on file documented as of this encounter Plan of Treatment Upcoming Encounters Date Type Specialty Care Team Description 03/26/2022 Office Visit Rheumatology Harriet Lezama APRN [facility] RHEUMATOLOGY [place], [place] [address] (Wo rk) Scheduled Referrals Name Type Priority Associated Diagnoses Order S chedule Referral to Outpatient Referral Routine Sarcoidosis Ordered: Rheumatology 11/03/2021 documented as of this encounter Visit Diagnoses Diagnosis Sarcoidosis documented in this encounter Care Teams Public Health Technician Relationship Specialty Start Date End Date Jocelyn Phipps, ENTRY MANAGER PCP - General Family Medicine 11/03/21 [address] [place] [address] documented as of this encounter
--- OUTSIDE RECORDS SUMMARY | 2022-03-02 14:42 | XMS_ITS | Clinical Summary ---
:1975 Author Organization [facility] [place] [address] Care Team Providers Name Role Phone Jocelyn Phipps FOOT TENDER Primary Care Provider Encounters Date Type Specialty Care Team Description 02/10/2022 Transcribe Orders Primary Care Jocelyn Phipps, Sarcoidos is FOOT TENDER 01/09/2022 Transcribe Orders Primary Care Shirley York DO Abnorm al uterine bleeding (AUB) 12/26/2021 Orders Only Urology Margoth Mccormick, Microhematu avril PA 12/22/2021 Transcribe Orders Primary Care Jocelyn Phipps, Hematuria , unspecified type; FOOT TENDER Calculus of kid jeffery from Last 3 Months Social History Tobacco Use Types Packs/Day Years Used Date Never Assessed Sex Assigned at Date Recorded Not on file Plan of Treatment Upcoming Encounters Date Type Specialty Care Team Description 03/26/2022 Office Visit Rheumatology Harriet Lezama, FOOT TENDER [facility] [address] RHEUMATOLOGY [place], [place] [address] (Wo rk) Health Maintenance Due Date Last Done Comments Covid-19 Vaccine (#1) 1980 HIV screen 1993 Hepatitis C Screening 1993 Tdap adult 1994 Tetanus vaccine 1994 HPV test 2005 PAP Smear 2005 Breast Cancer Share Decision Needed 2015 Colonoscopy 2020 Influenza (Flu) vaccine (1 of 1 - Influenza standard 04/23/2022 series) Procedures Procedure Name Priority Date/Time Associated Diagnosis Comme nts LAB SCAN 12/08/2021 12:00 AM Results for this EDT procedure are i n the results section . LAB SCAN 12/08/2021 12:00 AM Results for this EDT procedure are i n the results section . from Last 3 Months Results SCAN DOC: LAB (12/08/2021 12:00 AM EDT)Only the most recent of2 resultswithin the time period is included. Narrative This result has an attachment that is no t available. Unknown MEDIA MGR SCAN EXT ORDR/RSLT from Last 3 Months Insurance Payer Benefit Plan / Subscriber ID Effective Dates Phone Addre ss Type Group [employer] [facility] [id number] 2021-Presen [phone] [address] [facility] OOS PPO t 3 [place], [place] [address] Care Teams Mirror Painter Relationship Specialty Start Date End Date Jocelyn Phipps, FOOT TENDER PCP - General Family Medicine 11/03/21 [address] [place] [address]
--- OUTSIDE RECORDS SUMMARY | 2022-03-02 14:42 | XMS_ITS | Encounter Summary ---
:1975 [place] [address] Care Team Providers Name Role Phone Unavailable Primary Care Provider Unavailable Encounter Details Date Type Department Care Team Description 10/25/2021 Ancillary Procedure Radiology Library at Jocelyn Phipps APRN [facility] [address] [facility] [address] [place] [address] [phone] Social History Tobacco Use Types Packs/Day Years Used Date Never Assessed Sex Assigned at Date Recorded Not on file documented as of this encounter Plan of Treatment Upcoming Encounters Date Type Specialty Care Team Description 03/26/2022 Office Visit Rheumatology Harriet Lezama APRN [facility] RHEUMATOLOGY [place], [place] [address] (Wo rk) documented as of this encounter Procedures Procedure Name Priority Date/Time Associated Comments Diagnosis FILM LIBRARY STORAGE Routine 10/25/2021 12:00 AM Results for this ONLY ULTRASOUND EST procedure ar e in STUDY the results section. documented in this encounter Results Film Library- Storage Only Ultrasound Study (10/25/2021 12:00 AM EST) Specimen (Source) Anatomical Location Collection Method / Collectio n Time Received Time / Laterality Volume Narrative VIVIEN JOSEPH - 01/09/2022 12:38 PM EDT This exam is auto-finalizing. It's purpo se is for storage only. Jocelyn Phipps APRN IMG FILM LIBRARY ORDERABLES Performing Organization Address City/State/ZIP Code Phon e Number [facility] [place], [place] documented in this encounter Visit Diagnoses Not on filedocumented in this encounter
--- OUTSIDE RECORDS SUMMARY | 2022-03-02 14:42 | XMS_ITS | Encounter Summary ---
:1975 [place] [address] Care Team Providers Name Role Phone Unavailable Primary Care Provider Unavailable Encounter Details Date Type Department Care Team Description 10/30/2021 Ancillary Procedure Radiology Library at Jocelyn Phipps APRN [facility] [address] [facility] [address] [place] [address] [phone] Social History Tobacco Use Types Packs/Day Years Used Date Never Assessed Sex Assigned at Date Recorded Not on file documented as of this encounter Plan of Treatment Upcoming Encounters Date Type Specialty Care Team Description 03/26/2022 Office Visit Rheumatology Harriet Lezama APRN [facility] RHEUMATOLOGY [place], [place] [address] (Wo rk) documented as of this encounter Procedures Procedure Name Priority Date/Time Associated Comments Diagnosis FILM LIBRARY STORAGE Routine 10/30/2021 12:00 AM Results for this ONLY ULTRASOUND EST procedure ar e in STUDY the results section. documented in this encounter Results Film Library- Storage Only Ultrasound Study (10/30/2021 12:00 AM EST) Specimen (Source) Anatomical Location Collection Method / Collectio n Time Received Time / Laterality Volume Narrative VIVIEN JOSEPH - 01/09/2022 12:34 PM EDT This exam is auto-finalizing. It's purpo se is for storage only. Jocelyn Phipps APRN IMG FILM LIBRARY ORDERABLES Performing Organization Address City/State/ZIP Code Phon e Number [facility] [place], [place] documented in this encounter Visit Diagnoses Not on filedocumented in this encounter
[2022-03-02 15:24] LABS: COVID-19 PCR Negative (Negative)
[2022-03-02] MEDS: oxyCODONE 5 mg/Acetaminophen 325 mg TAB PO ×2 (15:32→20:01)
[2022-03-02] MEDS: Normal Saline Flush 10 ML SYR IVP ×2 (15:32→18:01)
[2022-03-02] MEDS: Lactated Ringers 1,000 ML 125 ML IV ×2 (15:33→22:02)
[2022-03-02] MEDS: Ibuprofen 600 MG TAB PO ×3 (16:16→22:01)
[2022-03-02] MEDS: HYDROmorphone 2 MG/ML SYR IVP ×2 (18:00→22:04)
[2022-03-02] MEDS: Metoprolol 50 MG TAB 25 MG PO (20:00)
[2022-03-02] MEDS: Docusate Sodium 100 MG CAP PO (20:01)
[2022-03-02] MEDS: LORazepam 0.5 MG TAB PO (20:04)
[2022-03-03] MEDS: HYDROmorphone 2 MG/ML SYR IVP ×5 (02:10→19:52)
[2022-03-03] MEDS: Ondansetron 4 MG/2 ML VIAL IVP ×2 (02:10→06:37)
[2022-03-03] MEDS: Ibuprofen 600 MG TAB PO ×5 (02:10→18:05)
[2022-03-03] MEDS: Normal Saline Flush 10 ML SYR IVP ×6 (02:11→23:57)
[2022-03-03] MEDS: PIPERACILLIN/TAZO 3.375 GM in Normal Saline 50 ML IVPB ×4 (05:37→23:57)
[2022-03-03] MEDS: oxyCODONE 5 mg/Acetaminophen 325 mg TAB PO ×4 (05:50→20:35)
[2022-03-03] MEDS: LORazepam 0.5 MG TAB PO ×2 (05:53→19:53)
[2022-03-03] MEDS: Methadone Liquid 10 MG/ML 110 MG PO (08:03)
[2022-03-03] MEDS: Metoprolol 50 MG TAB 25 MG PO ×2 (08:04→19:53)
[2022-03-03] MEDS: Omeprazole 20 MG CAPCR PO (08:06)
[2022-03-03] MEDS: Lisinopril 10 MG TAB 30 MG PO (08:06)
[2022-03-03] MEDS: Docusate Sodium 100 MG CAP PO ×2 (08:06→19:53)
[2022-03-03 08:15] VITALS: BP 124/82; PULSE 77; RESP 18; TEMP 37.2; O2SAT 98
[2022-03-03 08:42] LABS: Abs Immature Grans 0.07 10^3/uL (0.0-0.06); Absolute Basophil Count 0.03 10^3/uL (0.0-0.2); Absolute Eosinophil Count 0.14 10^3/uL (0.0-0.7); Absolute Lymphocyte Count 0.81 10^3/uL (1.2-3.4); Absolute Monocyte Count 0.69 10^3/uL (0.1-0.8); Absolute Neutrophil Count 6.57 10^3/uL (1.2-6.7); Basophils % 0.4; Eosinophils % 1.7; HCT 32.3 % (36.0-46.0); Immature Grans % 0.8; Lymphocytes % 9.7; MCH 28.6 pg (27.0-33.0); MCV 92 fL (80-95); MPV 9.3 fL (8.0-11.0); Monocytes % 8.3; Neutrophils % 79.1; Platelet Count 233 10^3/uL (130-400); RDW 13.8 % (11.7-14.6); WBC 8.31 10^3/uL (4.4-10.8)
[2022-03-03] MEDS: Lactated Ringers 1,000 ML 125 ML IV ×2 (08:49→18:05)
--- NOTE | 2022-03-03 09:26 | W.PM.PROGNOT ---
Date of Service Date of service: 03/03/22 Time of Service: 09:26 Assessment and Plan Assessment and plan (1) Status post laparoscopic assisted vaginal hysterectomy (LAVH): Status: Acute Assessment and plan: Patient is 5 days status post laparoscopically assisted vaginal hysterectomy with bilateral salpingectomy and placement of left ureteral stent. She was doing well postoperatively, and then on postoperative day 3 and 4, developed some ongoing pain, nausea and chills. She was seen in the emergency department and evaluated by providers there. She did have a slightly elevated white blood cell count and a stable hemoglobin. CT scan of the abdomen pelvis revealed a fluid collection in the pelvis measuring 5 x 5 x 3 cm, concern for abscess is present, though she also had Surgicel placed at the vaginal. Clinically she does appear to have a postoperative infection with abscess versus Cellulitis. (2) Pelvic abscess in female: Status: Acute Assessment and plan: 5 x 5 x 3 cm pelvic fluid collection. Currently placed empirically on Zosyn 3.75 mg IV every 6 hours. Repeat CBC this morning shows improvement in her white blood cell count. At this point, she has been afebrile with. Clinically she appears uncomfortable, but also has issues with chronic pain. Plan will be to continue her Zosyn repeat CBC tomorrow morning on 03/04/2022. We will monitor for clinical response. Due to size and location of her fluid collection I do not feel that she needs interventional radiology or drainage at this point. We will her clinically and hopefully be able to transition her to oral antibiotics and pain medication by tomorrow. (3) Hypertension: Status: Chronic Subjective Subjective Interval history since last seen: Patient seen and examined this morning. She is doing somewhat better than yesterday. She still has issues with ongoing pain, and pressure in her low pelvis. She has at this point, pending afebrile. CBC this morning revealed a decrease in her white blood cell count. She will attempt to eat regular diet today. We had a conversation regarding antibiotic therapy. She is currently on Zosyn. As she continues to improve, we will continue this regime. We are awaiting blood cultures. Urine was positive for gram-positive bacteria. Exam Narrative Exam Narrative: Patient is still feeling fatigue, and low pelvic pressure. Const General: cooperative, no acute distress and well developed Nutritional Appearance: overweight Orientation: alert and oriented x3 HENMT Head: normal to inspection Eyes General: appearance normal, both eyes and all related structures Neck Neck: normal visual inspection Resp Effort & Inspection: normal respiratory effort Cardio Rate: regular rate Rhythm: regular rhythm GI Inspection: normal to inspection, no edema, non-distended and incision (Dressing removed. No evidence of infection) Palpation: soft, not firm and no guarding Auscultation: normal bowel sounds Extrem General: normal to inspection, no clubbing, cyanosis or edema and no calf tenderness Objective Last Vital Signs Temp 99.0 F 03/03/22 08:15 Pulse 77 03/03/22 08:15 Resp 18 03/03/22 08:15 BP 124/82 03/03/22 08:15 Pulse Ox 98 03/03/22 08:15 Laboratory Results - last 24 hr 03/02/22 03/02/22 03/02/22 10:38 10:42 10:42 WBC RBC Hgb Hct MCV MCH MCHC RDW Plt Count MPV Immature Gran % Neutrophils % Lymphocytes % Monocytes % Eosinophils % Basophils % Nucleated RBC % Absolute Neutrophils Absolute Lymphocytes Absolute Monocytes Absolute Eosinophils Absolute Basophils VBG Lactate 1.6 H Sodium 135 L Potassium 3.9 Chloride 98 Carbon Dioxide 25.6 Anion Gap 11.4 H BUN 22 H Creatinine 1.0 Estimated GFR/1.73 m2 59.69 Glucose 129 H Calcium 9.2 Magnesium 2.2 Total Bilirubin 0.8 AST 28 ALT 41 Alkaline Phosphatase 29 L Total Protein 8.0 Albumin 3.3 L Urine Color Dark Yellow Urine Clarity Cloudy Urine pH 7.0 Ur Specific [place] 1.025 Urine Protein 100 H Urine Ketones Negative Urine Blood Large H Urine Nitrite Negative Urine Bilirubin Negative Urine Urobilinogen 1.0 H Ur Leukocyte Esterase Small H Urine RBC >50 H Urine WBC 3-5 Ur Epithelial Cells Few Urine Crystals Negative Urine Bacteria Rare Urine Casts 5-10 RBC Urine Mucus Trace Ur Culture Indicated? Yes Urine Glucose Negative COVID-19 Source SARS-CoV-2 (PCR) 03/02/22 03/02/22 03/03/22 10:42 14:30 08:40 WBC 14.29 H 8.31 RBC 4.17 3.50 L Hgb 11.8 10.0 L Hct 37.3 32.3 L MCV 89 92 MCH 28.3 28.6 MCHC 31.6 L 31.0 L RDW 13.3 13.8 Plt Count 290 233 MPV 9.6 9.3 Immature Gran % 0.8 0.8 Neutrophils % 83.6 79.1 Lymphocytes % 5.2 9.7 Monocytes % 9.3 8.3 Eosinophils % 0.6 1.7 Basophils % 0.5 0.4 Nucleated RBC % 0.1 0.0 Absolute Neutrophils 11.95 H 6.57 Absolute Lymphocytes 0.74 L 0.81 L Absolute Monocytes 1.33 H 0.69 Absolute Eosinophils 0.09 0.14 Absolute Basophils 0.07 0.03 VBG Lactate Sodium Potassium Chloride Carbon Dioxide Anion Gap BUN Creatinine Estimated GFR/1.73 m2 Glucose Calcium Magnesium Total Bilirubin AST ALT Alkaline Phosphatase Total Protein Albumin Urine Color Urine Clarity Urine pH Ur Specific [place] Urine Protein Urine Ketones Urine Blood Urine Nitrite Urine Bilirubin Urine Urobilinogen Ur Leukocyte Esterase Urine RBC Urine WBC Ur Epithelial Cells Urine Crystals Urine Bacteria Urine Casts Urine Mucus Ur Culture Indicated? Urine Glucose COVID-19 Source Nasal/Nares SARS-CoV-2 (PCR) Negative
[2022-03-03] MEDS: Simethicone 80 MG CHEW PO (10:35)
--- NOTE | 2022-03-03 11:29 | INITIAL_ITS ---
- If Service Date Differs Date of service: 03/03/22 Time of Service: 11:29 Care Management Initial Assess REASON FOR HOSPITALIZATION:: Pelvic abscess s/p LAVH PAST MEDICAL HISTORY/PAST SURGICAL HISTORY:: Pelvic abscess in female (Acute). Status post laparoscopic assisted vaginal hysterectomy (LAVH) (Acute). With bilateral salpingectomy. Anxiety (Chronic). Headache (Acute). Hypertension (Chronic). Abnormal uterine bleeding (AUB) (Acute). Uterine fibroid (Acute). Renal calculus (Chronic). Medical History . Gout. Hx of drug abuse. 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 Sarcoidosis. Stroke, hemorrhagic. Surgical History . History of lithotripsy PREVIOUS FUNCTIONAL STATUS/SOCIAL/FAMILY SUPPORTS:: Resides in [facility] with friend, Sae. Independent at baseline in community. CURRENT FUNCTIONAL STATUS:: Susan was sleeping with her door closed this afternoon, CM did not disturb her. ADVANCE DIRECTIVES:: None on file. Has patient been provided with info about the portal/API?: Yes Did the patient sign up for the portal?: No CODE STATUS:: Full Code INSURANCE COVERAGE / FINANCIAL ISSUES:: Medicaid CURRENT HOME/COMMUNITY SERVICES/EQUIPMENT:: SMITA: Methadone maintenance PRIMARY CARE PHYSICIAN:: Jocelyn Phipps POTENTIAL DISCHARGE NEEDS:: Follow up appointments. PATIENT/FAMILY EDUCATION NEEDS:: Review of discharge instructions, discuss Ask Me Three. ANTICIPATED BARRIERS TO DISCHARGE:: None identified. TRANSPORTATION:: Via private vehicle with friend, or RCT. PLAN:: Anticipate Susan will return home when ready per MD. She will follow up with her PCP and plan of care as prescribed. She will transport via private vehicle with a friend or via RCT.
--- NOTE | 2022-03-03 15:38 | W.PM.PROGNOT ---
Date of Service Date of service: 03/03/22 Time of Service: 15:38 Subjective Subjective Interval history since last seen: Patient seen this afternoon. Feeling somewhat better. Pain is reasonably well controlled. She has been afebrile. We discussed the possibility of transition from IV antibiotics to oral antibiotics tomorrow. If she is able to tolerate this, and remained afebrile, she may be discharged home tomorrow. Follow-up will be in the office and with repeat imaging in approximately 1 week to evaluate size of potential pelvic abscess. All questions were answered. Objective Last Vital Signs Temp 99.0 F 03/03/22 08:15 Pulse 77 03/03/22 08:15 Resp 18 03/03/22 08:15 BP 124/82 03/03/22 08:15 Pulse Ox 98 03/03/22 08:15 Laboratory Results - last 24 hr 03/03/22 08:40 WBC 8.31 RBC 3.50 L Hgb 10.0 L Hct 32.3 L MCV 92 MCH 28.6 MCHC 31.0 L RDW 13.8 Plt Count 233 MPV 9.3 Immature Gran % 0.8 Neutrophils % 79.1 Lymphocytes % 9.7 Monocytes % 8.3 Eosinophils % 1.7 Basophils % 0.4 Nucleated RBC % 0.0 Absolute Neutrophils 6.57 Absolute Lymphocytes 0.81 L Absolute Monocytes 0.69 Absolute Eosinophils 0.14 Absolute Basophils 0.03
[2022-03-03 15:51] VITALS: BP 129/81; PULSE 70; RESP 16; TEMP 36.8; O2SAT 97
[2022-03-04] MEDS: Ondansetron 4 MG/2 ML VIAL IVP ×2 (00:06→08:47)
[2022-03-04] MEDS: HYDROmorphone 2 MG/ML SYR IVP ×3 (00:06→08:46)
[2022-03-04 00:14] VITALS: BP 129/85; PULSE 65; RESP 16; TEMP 36.6; O2SAT 99
[2022-03-04] MEDS: oxyCODONE 5 mg/Acetaminophen 325 mg TAB PO ×4 (00:44→13:09)
[2022-03-04] MEDS: Normal Saline Flush 10 ML SYR IVP ×3 (04:40→08:47)
[2022-03-04] MEDS: Lactated Ringers 1,000 ML 125 ML IV (04:40)
[2022-03-04] MEDS: Ibuprofen 600 MG TAB PO ×3 (05:09→13:09)
[2022-03-04] MEDS: LORazepam 0.5 MG TAB PO ×2 (05:09→13:12)
[2022-03-04] MEDS: PIPERACILLIN/TAZO 3.375 GM in Normal Saline 50 ML IVPB (05:09)
[2022-03-04 06:21] LABS: Abs Immature Grans 0.05 10^3/uL (0.0-0.06); Absolute Basophil Count 0.02 10^3/uL (0.0-0.2); Absolute Eosinophil Count 0.19 10^3/uL (0.0-0.7); Absolute Lymphocyte Count 0.96 10^3/uL (1.2-3.4); Absolute Neutrophil Count 3.72 10^3/uL (1.2-6.7); Basophils % 0.4; Eosinophils % 3.5; HGB 8.7 g/dL (11.2-15.7); Immature Grans % 0.9; Lymphocytes % 17.6; MCH 28.2 pg (27.0-33.0); MCHC 31.1 % (32.0-36.0); MCV 91 fL (80-95); MPV 9.5 fL (8.0-11.0); Monocytes % 9.2; Neutrophils % 68.4; RBC 3.08 10^6/uL (3.93-5.22); RDW 13.6 % (11.7-14.6); RDW-SD 44.6 fL; WBC 5.44 10^3/uL (4.4-10.8)
[2022-03-04 07:04] LABS: Basophilic Stippling Present; Diff Comment Diff Reviewed; Hypochromasia 2+; Platelet Count 207 10^3/uL (130-400)
[2022-03-04 07:42] VITALS: BP 120/79; PULSE 63; RESP 18; TEMP 36.6; O2SAT 95
[2022-03-04] MEDS: Methadone Liquid 10 MG/ML 110 MG PO (08:46)
[2022-03-04] MEDS: Omeprazole 20 MG CAPCR PO (08:47)
[2022-03-04] MEDS: Lisinopril 10 MG TAB 30 MG PO (08:48)
[2022-03-04] MEDS: Docusate Sodium 100 MG CAP PO (08:48)
[2022-03-04] MEDS: Metoprolol 50 MG TAB 25 MG PO (08:48)
--- NOTE | 2022-03-04 08:58 | PDOC.CMPRO ---
- If Service Date Differs Date of service: 03/04/22 Time of Service: 08:58 Care Management Progress Note S/O: A: 46 year old female admitted to [facility] on 03/02/22 for Pelvic abscess s/p TI P: Anticipate Susan will return home when ready per MD. She will follow up with her PCP and plan of care as prescribed. She will transport via private vehicle with a friend or via RCT.
--- NOTE | 2022-03-04 10:43 | W.PM.PROGNOT ---
Date of Service Date of service: 03/04/22 Time of Service: 10:43 Assessment and Plan Assessment and plan (1) Pelvic abscess in female: Status: Acute Assessment and plan: Patient is now hospital day #2 on the antibiotics with Zosyn and afebrile. She has a normal white blood cell count. Clinically she is significantly improved. Blood cultures to this point have been negative. Urinalysis did grow gram-positive bacteria. Overall she is doing well. She will be converted to oral pain medication and oral antibiotics, in anticipation of discharge home today. (2) Status post laparoscopic assisted vaginal hysterectomy (LAVH): Status: Acute (3) Anemia: Status: Chronic Assessment and plan: Steady downward trend of her hemoglobin with completely stable vital signs and no symptoms. We will recheck hemoglobin midday today to ensure stability. Subjective Subjective Interval history since last seen: Patient seen and examined this morning, overall feeling much better. She has no fevers or chills. She has been tolerating a regular diet. She has been passing flatus and her subjective urinary incontinence is improving. She continues to have some anterior abdominal and low pelvic discomfort for which she is taking narcotic pain medication. Laboratory studies were reviewed this morning. White blood cell count is normal. She did have a significant downward trend in her hemoglobin, though appears completely asymptomatic without clinical symptoms of anemia. She states that she did have a small panic attack last night and had to calm herself down from leaving AGAINST MEDICAL ADVICE. We discussed her plan of care and management. In light of the fact that she has been on Zosyn now for approximately 36 hours and has been afebrile with a normal white count, I will transition her to oral antibiotic therapy and oral pain medication. If she is able to tolerate this, I would anticipate discharge home today. Exam Const General: cooperative, comfortable, no acute distress, well groomed and not ill appearing [facility] Head: normal to inspection Eyes General: appearance normal, both eyes and all related structures Neck Neck: normal visual inspection, supple and no anterior neck swelling Resp Effort & Inspection: normal respiratory effort Cardio Jugular venous pressure: no JVD Palpation: normal PMI Rate: regular rate Rhythm: regular rhythm GI Inspection: normal to inspection and incision (Healing well, minimal ecchymosis. No erythema) Palpation: soft, not firm and no guarding Skin General skin exam: no rashes or lesions noted Neuro General: patient alert, patient awake and patient oriented x3 Extrem General: normal to inspection and no clubbing, cyanosis or edema Objective Last Vital Signs Temp 97.9 F 03/04/22 07:42 Pulse 63 03/04/22 07:42 Resp 18 03/04/22 07:42 BP 120/79 03/04/22 07:42 Pulse Ox 95 03/04/22 07:42 Laboratory Results - last 24 hr 03/04/22 06:12 WBC 5.44 RBC 3.08 L Hgb 8.7 L Hct 28.0 L MCV 91 MCH 28.2 MCHC 31.1 L RDW 13.6 Plt Count 207 MPV 9.5 Immature Gran % 0.9 Neutrophils % 68.4 Lymphocytes % 17.6 Monocytes % 9.2 Eosinophils % 3.5 Basophils % 0.4 Nucleated RBC % 0.0 Absolute Neutrophils 3.72 Absolute Lymphocytes 0.96 L Absolute Monocytes 0.50 Absolute Eosinophils 0.19 Absolute Basophils 0.02 RBC Morphology See Below Hypochromasia 2+ Basophilic Stippling Present
--- NOTE | 2022-03-04 10:48 | W.PM.DS.N ---
Date of service: 03/04/22 Time of Service: 10:48 DS: Diagnosis Discharge Diagnosis (1) Pelvic abscess in female: Status: Acute Asessment and Plan: Patient will complete a total of 14-day course of antibiotics. She is antibiotic day #3 today and has received Zosyn. She will be converted to Bactrim and Flagyl for the completion of her course. I would anticipate repeating imaging studies in approximately 1 week time to reevaluate fluid collection within her pelvis. After seeing that her hemoglobin was stable with an H&H at 9.3, I called the floor to let her nurse know the news that she may be discharged later this afternoon if she is able to tolerate orals. I was told that the patient was angry, threatening to leave AGAINST MEDICAL ADVICE. Discharge order was written. She will have prescription sent to the local pharmacy for her antibiotics for completion of 14-day course, along with pain medication. I plan on seeing her back in the office in approximately 1 week with a pelvic ultrasound to follow-up thereafter to reevaluate her pelvic abscess. She did leave the floor prior to me being able to reevaluate her physically. (2) Status post laparoscopic assisted vaginal hysterectomy (LAVH): Status: Acute Asessment and Plan: Continue routine postoperative care (3) Anemia: Status: Chronic Asessment and Plan: Daily multivitamin Discharge Plan Disposition Patient Disposition: HOME Condition: Good Discharge Details Reason For Visit: Pelvic Abscess Admit Date/Time: 03/02/22 14:08 Admit Provider: Gwendolyn Davis Attending Provider: Gwendolyn Davis Primary Care Provider: COURTNEY DIOR Hospital Course Hospital Course: Patient was admitted to the hospital postoperative day #5 status post laparoscopically assisted vaginal hysterectomy with bilateral salpingectomy having, increased pain, fevers, chills and an evaluation in the emergency department suspicious for a pelvic abscess. She was admitted to the hospital, placed empirically on IV antibiotics with Zosyn and received both oral and IV pain medication. She was never actually febrile in the hospital, though she did have a mildly elevated white blood cell count. She remained afebrile over the course of her stay. Her white blood cell count normalized. She did have a modest drop in her hemoglobin which remained stable and she is completely asymptomatic for this. Her blood cultures to date have no growth. She did have a urinalysis showing gram-positive. She was transitioned to Bactrim, and Flagyl. She will be discharged to home on her oral antibiotics, oral pain medication which includes her methadone as scheduled along with Percocet as needed. She will be seen back in the office in 1 week's time and outpatient imaging will be scheduled. Home Meds and New Rx's Prescriptions: New oxycodone-acetaminophen [Percocet] 5-325 mg tablet 1 tab PO Q6H PRNQty: 14 0RF sulfamethoxazole-trimethoprim [Bactrim DS] 800-160 mg tablet 1 tab PO Q12H Qty: 24 0RF metronidazole 500 mg tablet 500 mg PO Q12H Qty: 24 0RF Continued amlodipine 5 mg tablet 5 mg PO DAILY Qty: 30 0RF lorazepam [Ativan] 0.5 mg tablet 0.5 mg PO BID PRN (Reason: anxiety) Qty: 10 0RF omeprazole 20 mg capsule,delayed release(DR/EC) 20 mg PO DAILY Label Comments: Take 1 capsule by mouth once a day chlorthalidone 25 mg tablet 25 mg PO DAILY metoprolol tartrate 50 mg tablet 25 mg PO BID lisinopril 40 mg tablet 30 mg PO DAILY methadone 5 mg/5 mL Solution 110 mg PO DAILY docusate sodium [Colace] 100 mg Capsule 100 mg PO BID Qty: 30 0RF ibuprofen 600 mg Tablet 600 mg PO Q6H PRN PRNQty: 30 1RF Discharge Instructions Additional Instructions: Follow up with me in 2 weeks Activity:: Activity as Tolerated Equipment/Supplies:: No Equipment Needed Diet:: As Tolerated Discharge Orders Discharge Orders: Discharge Order (Routine); Ordered 03/04/22 Ordered By: Shirley York Discharge Data Discharge Date/Time-TO BE ENTERED AT DEPARTURE: 03/04/22 13:50 Discharge Comment: KIM GALLEGOS: Summary Summary Time spent discussing smoking cessation with patient: 3 to 10 minutes Time Spent with Patient providing and/or coordinating discharge services: Less than 30 minutes Status at Discharge Functional status at discharge: independent ambulation Overall status at discharge: patient is progressing back to baseline Mental Status: mental status grossly normal Speech and Movement: speech and movement normal Mood: congruent mood Affect: normal affect Exam Narrative Exam Narrative: Please see physical exam from progress note dated 03/04/2022 Psych Mental Status: mental status grossly normal Speech and Movement: speech and movement normal Mood: congruent mood Affect: normal affect DS: Data Vitals/I&O Vitals and I&O: Vital Signs Temperature 97.9 F 03/04/22 07:42 Temperature Source Tympanic 03/04/22 07:42 Pulse 63 03/04/22 07:42 Pulse Rhythm Regular 03/04/22 09:19 Pulse 78 03/02/22 12:15 Respiratory Rate 18 03/04/22 07:42 Respiratory Effort 03/04/22 09:19 Respiratory Depth Normal 03/04/22 09:19 Respiratory Pattern Normal 03/04/22 09:19 Blood Pressure 120/79 03/04/22 07:42 Blood Pressure Mean 85 03/02/22 12:15 Blood Pressure Position Sitting 03/02/22 09:56 Pulse Oximetry 95 03/04/22 07:42 Oxygen Delivery Method Room Air 03/04/22 07:42 Oxygen Flow Rate 0 03/04/22 07:42 Pain Level 9 03/04/22 09:19 Comment 03/02/22 09:56 Intake & Output 03/03/22 03/03/22 03/04/22 11:59 23:59 11:59 Intake Total 1350 / 2950 1600 / 2950 1100 / 1100 Output Total 300 / 700 400 / 700 300 / 300 Balance 1050 / 2250 1200 / 2250 800 / 800 Intake: IV 1100 / 2200 1100 / 2200 1100 / 1100 Oral 250 / 750 500 / 750 Output: Urine 300 / 700 400 / 700 300 / 300 Other: Urine Color Yellow Urine Appearance Clear Clear Clear Urine Odor Normal Normal Comment patient voiding independently in toilet per pT report Voiding Methods Toilet Toilet Incontinent Data Completed and Pending Labs on day of discharge: Labs from last 24 hours 03/04/22 03/04/22 12:00 06:12 WBC 5.44 RBC 3.08 L Hgb Pending 8.7 L Hct 28.0 L MCV 91 MCH 28.2 MCHC 31.1 L RDW 13.6 Plt Count 207 MPV 9.5 Immature Gran % 0.9 Neutrophils % 68.4 Lymphocytes % 17.6 Monocytes % 9.2 Eosinophils % 3.5 Basophils % 0.4 Nucleated RBC % 0.0 Absolute Neutrophils 3.72 Absolute Lymphocytes 0.96 L Absolute Monocytes 0.50 Absolute Eosinophils 0.19 Absolute Basophils 0.02 RBC Morphology See Below Hypochromasia 2+ Basophilic Stippling Present Preliminary micro results at discharge 03/02/22 11:52 Blood Culture - Preliminary Blood NO GROWTH 24 HOURS 03/02/22 10:42 Blood Culture - Preliminary Blood NO GROWTH 24 HOURS PFSH All Active Problems Anemia (Chronic) Pelvic abscess in female (Acute) Status post laparoscopic assisted vaginal hysterectomy (LAVH) (Acute) With bilateral salpingectomy Anxiety (Chronic) Headache (Acute) Hypertension (Chronic) Abnormal uterine bleeding (AUB) (Acute) Uterine fibroid (Acute) Renal calculus (Chronic) Medical History Gout Hx of drug abuse 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
[2022-03-04] MEDS: metroNIDAZOLE 500 MG TAB PO (11:05)
[2022-03-04] MEDS: Sulfameth/Trimeth DS TAB 1 TAB PO (11:05)
[2022-03-04 12:44] LABS: HGB 9.3 g/dL (11.2-15.7)
--- NOTE | 2022-03-04 13:59 | NUR.NOTE ---
Nursing spoke with patient about PRN dose of pain medication at approximately noon and told patient that next available dose was not due until approximately 13:00. Patient stated she understood and would wait until then. Nursing was involved with the discharge of another patient when patient rang again shortly before 13:00 to have medication. Another nurse was able to go in and administer the medication to the patient at 13:09, but the patient was unhappy with the dosage per that RN and asked to speak with her primary RN. Primary RN was finishing discharge of the other patient when notified that the patient had become aggressive and was destroying items in her room and planned to leave against medical advice. Nursing tried to get the patient to wait until discharge education could be provided but she refused. Nursing went into patient room after discharge and discovered broken dishes, a broken cup, and damaged drawers on furniture.
--- NOTE | 2022-03-04 15:49 | PDOC.CMDIS ---
- If Service Date Differs Date of service: 03/04/22 Time of Service: 15:49 LACE Index Scoring Tool - Questions: Length of Stay (in days): 2 Acuity (Admit via E.D.?): Yes E.D. Visits: 2 - Answers: Total Score: 7 Risk of Readmission: Low Risk Care Management Discharge Reason for Hospitalization: Pelvic abscess s/p LAVH Discharge Plan: Susan discharged home via private vehicle with family. Anticipate, she will follow up with her community providers. Susan was anxious to discharge and left before she received her discharge paperwork and before was able to generate her last dose letter. Patient/Family Education Needs: Review discharge instructions, medications and plan to follow up with community providers. ask me three.
== END 2022-03-04 13:50 | disposition home or self-care (01) | DRG 863 ==
LOC: ER 10:51 → MS 14:40
PROVIDERS: Obstetrics & Gynecology; Admitting Provider Obstetrics & Gynecology; Emergency Provider Physician Assistant; PCP Nurse Practitioner Family; Visit Provider Obstetrics & Gynecology
DX: T81.43XA Infection following a procedure, organ and space surgical site, initial encounter (principal); F11.20 Opioid dependence, uncomplicated; N73.0 Acute parametritis and pelvic cellulitis; N20.0 Calculus of kidney; R32 Unspecified urinary incontinence; F41.9 Anxiety disorder, unspecified; I10 Essential (primary) hypertension; D64.9 Anemia, unspecified; R51.9 Headache, unspecified; Z90.710 Acquired absence of both cervix and uterus; Z86.73 Personal history of transient ischemic attack (TIA), and cerebral infarction without residual deficits; Z96.0 Presence of urogenital implants
CPT/HCPCS: 36415; 80053; 87040; 87635; 93005; 96361; 96365; 96367; 96375; 99285; 74177; 81003; 81015; 83605; 83735; 85018; 85025; 87086; 93010; J0131; J1170; J2405; J2543; J3490

== ENCOUNTER 2022-03-23 11:58 | Outpatient (REF) | payer BC, MEDICAID, SELFPAY | END 2022-03-23 11:59 | disposition home or self-care (01) | LOC: LBN 11:58 | PROVIDERS: PCP Nurse Practitioner Family; Visit Provider Nurse Practitioner Gerontology | DX: N39.0 Urinary tract infection, site not specified (principal); N20.0 Calculus of kidney | CPT/HCPCS: 87086 ==

== ENCOUNTER 2022-03-27 11:21 | Outpatient (REF) | payer BC, MEDICAID, SELFPAY ==
[2022-03-27 11:59] LABS: Source Nasal/Nares
[2022-03-27 18:06] LABS: COVID-19 PCR Negative (Negative)
== END 2022-03-27 11:22 | disposition home or self-care (01) ==
LOC: LBN 11:21
PROVIDERS: PCP Nurse Practitioner Family; Visit Provider Urology
DX: Z20.822 Contact with and (suspected) exposure to COVID-19 (principal); Z01.818 Encounter for other preprocedural examination; Z01.812 Encounter for preprocedural laboratory examination
CPT/HCPCS: 87635

== ENCOUNTER 2022-03-30 08:34 | Day surgery (SDC) | payer BC, MEDICAID, SELFPAY ==
[2022-03-30] VITALS (8 sets, daily range): BP systolic 108–132; BP diastolic 56–87; PULSE 57–76; RESP 12–20; TEMP 36.2–36.6; O2SAT 92–97; BMI 34.2
[2022-03-30] MEDS: Lactated Ringers 1,000 ML 80 ML IV (09:41)
--- NOTE | 2022-03-30 10:57 | W.PM.HP.N ---
Date of service: 03/30/22 Time of Service: 10:57 Assessment and Plan Assessment and plan (1) Renal calculus: Status: Chronic Assessment and plan: We will plan ureteroscopy with holmium laser lithotripsy of her large renal stone. Given the size of the stone, we will likely neeed a staged procedure with a planned return to the OR to remove residual fragments. History of Present Illness History of Present Illness Chief Complaint: Left kidney stone Narrative: This is a 46-year-old woman who has a past history of bilateral kidney stones.? She recalls requiring ureteral stents on 2 different occasions.? She had ESWL on 1 occasion.? She does not ever recall having ureteroscopy or percutaneous nephrolithotomy. She is unsure of her stones chemical composition.? She does have a history of gout. Her last stone occurrence was about 2 to 3 years ago.? She recalls the stone being about 3 mm.? She had a stent placed and she was able to pass the stone spontaneously. She was identified as having a large left renal stone. She was due for a hysterectomy for dysfunctional bleeding, so we placed a ureteral stent to prevent hydronephrosis while she recovered from her hysterectomy. She presents now for stone manipulation. Review of Systems Narrative: No fevers or chills No vision change or dysphasia No diabetes or thyroid No shortness of breath, cough or hemoptysis No chest pain or palpitations No nausea, vomiting, hepatitis, ulcers, jaundice, diarrhea or constipation No seizures, strokes or peripheral neuropathy No bleeding disorders or anemia No gout or arthralgia PFSH All Active Problems Anxiety (Chronic) Headache (Acute) Hypertension (Chronic) Abnormal uterine bleeding (AUB) (Acute) Uterine fibroid (Acute) Renal calculus (Chronic) Status post laparoscopic assisted vaginal hysterectomy (LAVH) (Acute) With bilateral salpingectomy Pelvic abscess in female (Acute) Anemia (Chronic) Medical History Gout Hx of drug abuse 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 last use 6 months ago Do you feel safe at home: Yes Do you feel safe in your relationship?: Yes Meds Allergies and Home Medications Allergies Allergy/AdvReac Type Severity Reaction Status Date / Time hayfever Allergy Uncoded 03/30/22 08:54 Home Medications Medication Instructions Recorded Confirmed Type amlodipine 5 mg tablet 5 mg PO DAILY #30 tabs 09/24/21 03/30/22 Rx lorazepam 0.5 mg tablet (Ativan) 0.5 mg PO BID PRN anxiety #10 tabs 09/24/21 03/30/22 Rx chlorthalidone 25 mg tablet 25 mg PO DAILY 10/25/21 03/30/22 History lisinopril 40 mg tablet 30 mg PO DAILY 10/25/21 03/30/22 History metoprolol tartrate 50 mg tablet 25 mg PO BID 10/25/21 03/30/22 History omeprazole 20 mg capsule,delayed 20 mg PO DAILY 10/25/21 03/30/22 History release methadone 5 mg/5 mL oral solution 110 mg PO DAILY 02/25/22 03/30/22 History ibuprofen 600 mg tablet 600 mg PO Q6H PRN PRN #30 tabs 02/27/22 03/30/22 Rx ondansetron HCl 4 mg tablet 4 mg PO TID-QID PRN nausea and 03/11/22 03/30/22 Rx vomiting #20 tabs Exam Const General: anxious Neck Neck: supple Resp Effort & Inspection: normal respiratory effort Auscultation: clear to auscultation bilaterally Cardio Rate: regular rate Rhythm: regular rhythm GI Palpation: soft and no masses Neuro General: patient alert, patient awake and patient oriented x3 Results Last Vital Signs Temp 36.4 C L 03/30/22 08:47 Pulse 74 03/30/22 08:47 Resp 20 03/30/22 08:47 BP 116/78 03/30/22 08:47 Pulse Ox 94 03/30/22 08:47
--- NOTE | 2022-03-30 11:00 | DI.RAD_ITS ---
Exam(s) XR RETROGRADE IN OR EXAM: XR RETROGRADE IN OR CLINICAL HISTORY: Renal calculus. TECHNIQUE: 2D digital imaging was performed. COMPARISON: No exams were available for comparison FINDINGS: Fluoroscopy was provided during retrograde study 4 renal calculi therapy. See procedure report for d etails. Total cumulative dose= 17.287mGy IMPRESSION: DATA REPOSITORY: RADIATION DOSE DELIVERED:
--- NOTE | 2022-03-30 11:00 | ANES.PREOP_ITS ---
General Info Date of Service Date Performed: 03/30/22 Height: 5 ft 7 in Weight: 99.2 kg Body Mass Index (BMI): 34.2 Surgical Procedure: Operation Date: 03/30/22 11:10 Proposed Procedure Side Surgeon p Cystoscopy/Laser/Retrograde/Ureteroscopy/Stone Manipulation/ Stent Removal ? Reinsertion Left Arsh Littlejohn MD Meds Allergies and Home Medications Allergies Allergy/AdvReac Type Severity Reaction Status Date / Time hayfever Allergy Uncoded 03/30/22 08:54 Home Medication Medication Instructions Recorded amlodipine 5 mg tablet 5 mg PO DAILY #30 tabs 09/24/21 lorazepam 0.5 mg tablet (Ativan) 0.5 mg PO BID PRN anxiety #10 tabs 09/24/21 chlorthalidone 25 mg tablet 25 mg PO DAILY 10/25/21 lisinopril 40 mg tablet 30 mg PO DAILY 10/25/21 metoprolol tartrate 50 mg tablet 25 mg PO BID 10/25/21 omeprazole 20 mg capsule,delayed 20 mg PO DAILY 10/25/21 release methadone 5 mg/5 mL oral solution 110 mg PO DAILY 02/25/22 ibuprofen 600 mg tablet 600 mg PO Q6H PRN PRN #30 tabs 02/27/22 ondansetron HCl 4 mg tablet 4 mg PO TID-QID PRN nausea and 03/11/22 vomiting #20 tabs Current Visit Medications: Current Medications Generic Name Dose Route Start Last Admin Trade Name Freq PRN Reason Stop Dose Admin Ringer's Solution 1,000 mls @ 80 mls/hr 03/30/22 06:00 03/30/22 09:41 IV 04/26/22 23:59 80 mls/hr INFUSION JORDON Administration Cefazolin Sodium/Dextrose 2 gm in 50 mls @ 100 mls/hr 03/30/22 06:00 d Ancef Duplex IVPB 03/30/22 16:00 PREOP JORDON IV Miscellaneous Supplies 1 each 03/30/22 06:00 Iv Access IV 04/26/22 23:59 DIRECTED JORDON Sodium Chloride 0 ml 03/30/22 06:00 Normal Saline Flush 10 Ml Syr IV 04/26/22 23:59 PRN PRN Sodium Chloride 0 ml 03/30/22 06:00 Normal Saline 10 Ml Vial IJ 04/26/22 23:59 DIRECTED PRN Sterile Water 0 ml 03/30/22 06:00 Water,Injection,Sterile 10 Ml Vial IJ 04/26/22 23:59 DIRECTED PRN PFSH Active Problems Active Problems: Problem Status Onset Code Anxiety F41.9 Headache R51.9 Hypertension I10 Abnormal uterine bleeding (AUB) N93.9 Uterine fibroid D25.9 Renal calculus N20.0 Status post laparoscopic assisted vaginal hysterectomy (LAVH) Z90.710 Pelvic abscess in female N73.9 Anemia D64.9 Medical History Medical History Gout Hx of drug abuse 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 last use 6 months ago Vital Signs and Lab Results Vital Signs Most Recent Vital Signs in EMR: Most Recent Vital Signs Temp Pulse Resp BP Pulse Ox 36.4 C L 74 20 116/78 94 03/30/22 08:47 03/30/22 08:47 03/30/22 08:47 03/30/22 08:47 03/30/22 08:47 Lab Results Blood Type / Crossmatch: No Data to Display Complete Blood Count: White Blood Count 5.44 10^3/uL (4.4-10.8) 03/04/22 06:12 Red Blood Count 3.08 10^6/uL (3.93-5.22) L 03/04/22 06:12 Hemoglobin 9.3 g/dL (11.2-15.7) L 03/04/22 12:30 Hematocrit 28.0 % (36.0-46.0) L 03/04/22 06:12 Platelet Count 207 10^3/uL (130-400) 03/04/22 06:12 Venous Blood Lactate 1.6 mmol/L (0.6-1.4) H 03/02/22 10:42 Complete Metabolic Panel: Sodium Level 135 mmol/L (136-145) L 03/02/22 10:42 Potassium Level 3.9 mmol/L (3.5-5.1) 03/02/22 10:42 Chloride Level 98 mmol/L (98-107) 03/02/22 10:42 Carbon Dioxide Level 25.6 mmol/L (21.0-32.0) 03/02/22 10:42 Blood Urea Nitrogen 22 mg/dL (7-18) H 03/02/22 10:42 Creatinine 1.0 mg/dL (0.55-1.02) 03/02/22 10:42 Estimated GFR/1.73 m2 59.69 (mL/min/1.73m2) 03/02/22 10:42 Magnesium Level 2.2 mg/dL (1.8-2.4) 03/02/22 10:42 Calcium Level 9.2 mg/dL (8.5-10.1) 03/02/22 10:42 Albumin 3.3 g/dL (3.4-5.0) L 03/02/22 10:42 Glucose Level 129 mg/dL (74-106) H 03/02/22 10:42 Liver Function Panel: Alanine Aminotransferase (ALT/SGPT) 41 U/L (14-59) 03/02/22 10: 42 Aspartate Amino Transf (AST/SGOT) 28 U/L (15-37) 03/02/22 10:42 Coagulation Panel: No Data to Display Cardiac Panel: No Data to Display Arterial Blood Gas: No Data to Display Venous Blood Gas: No Data to Display Pancreas Panel: No Data to Display Thyroid Panel: No Data to Display Infectious Disease: Coronavirus (COVID-19)(PCR) Negative (Negative) 03/27/22 09:00 Coronavirus 2019 Source Nasal/Nares 03/27/22 09:00 Blood Cultures: No Data to Display Toxicology Panel: No Data to Display Panel: No Data to Display Imaging and Studies Imaging and Studies Study information below may be from another EMR and interpreted by another provider. Please see original notes in EMR for more complete details. EKG Summary: 11/11: sinus Echocardiogram Summary: 11/11: mild LV hypertrophy, LVEF 55%, normal RvFxn. no sig valve dz. mild ascending Ao dilation 3.77 cm Anesthesia Assessment and Plan Anesthesia History Personal History: No History of Anesthesia Complications Family History: No Family History of Anesthesia Complications Exercise Tolerance Exercise Tolerance: Metabolic Equivalents>4 Pertinent Negatives Pertinent Negatives: No Symptoms of GERD, No Major Cardiovascular Symptoms or Complaints, No Major Pulmonary Symptoms or Complaints and No History of CVA/TIA Cardiac & Pulmonary Exam Cardiac Exam: Normal S1/S2 Heart Sounds Pulmonary Exam: Clear Bilateral Breath Sounds Implantable Cardiac Device Does patient have a Pacemaker or an ICD?: No Airway Exam Known Difficult Airway: No Mallampati Class: 3 Mouth Opening: Narrow (< 3cm) Thyromental Distance: Greater than 3 cm Neck Range of Motion: Full ROM Neck Circumference: Thick Teeth Condition: Normal Dentition ASA Classification ASA Score: ASA 2 Emergency Case?: No NPO Status NPO Status: NPO Clears >2 hours, Solids >8 hours Status Status: History of Hysterectomy Anesthesia Plan Resuscitation Status: Full Code Anesthesia Technique: General Anesthesia Airway Planned: LMA Monitors Used: Standard Monitors
[2022-03-30] MEDS: ceFAZolin 2 GM/50 ML BAG IVPB (11:47)
[2022-03-30] MEDS: Lidocaine 2% Jelly 6 ML SYR (11:55)
--- NOTE | 2022-03-30 12:41 | W.PM.DSUDISC ---
Discharge Plan Disposition Patient Disposition: HOME Condition: Good Discharge Details Reason For Visit: ureteroscopy Attending Provider: Arsh Littlejohn Primary Care Provider: COURTNEY DIOR Home Meds and New Rx's Prescriptions: No Action ondansetron HCl 4 mg tablet 4 mg PO TID-QID PRN (Reason: nausea and vomiting) Qty: 20 0RF amlodipine 5 mg tablet 5 mg PO DAILY Qty: 30 0RF lorazepam [Ativan] 0.5 mg tablet 0.5 mg PO BID PRN (Reason: anxiety) Qty: 10 0RF omeprazole 20 mg capsule,delayed release(DR/EC) 20 mg PO DAILY Label Comments: Take 1 capsule by mouth once a day chlorthalidone 25 mg tablet 25 mg PO DAILY metoprolol tartrate 50 mg tablet 25 mg PO BID lisinopril 40 mg tablet 30 mg PO DAILY methadone 5 mg/5 mL Solution 110 mg PO DAILY ibuprofen 600 mg Tablet 600 mg PO Q6H PRN PRNQty: 30 1RF Discharge Instructions Additional Instructions: no need to strain urine expect phone call from my office to arrange repeat cystoscopy, stent removal, ureteroscopy and removal of any residual stone fragments. Stand Alone Forms: Anesthesia Discharge Inst., [facility] Shreya Khalil ([facility]) Activity:: Activity as Tolerated Shower/Bathe:: 24 hours Diet:: As Tolerated Discharge Orders Discharge Orders: Discharge Order (Routine); Ordered 03/30/22 Ordered By: Arsh Littlejohn DS: Diagnosis Discharge Diagnosis (1) Renal calculus: Status: Chronic
--- NOTE | 2022-03-30 13:45 | ROE_ITS ---
Date of service: 03/30/22 Time of Service: 13:45 Operative Note Operative Note DATE OF PROCEDURE: 03/30/22 PRE-OP DIAGNOSIS: Left renal stone POST-OP DIAGNOSIS: same PROCEDURE: Cystoscopy, remove left ureteral stent, left retrograde pyelogram, left ureteroscopy with Holmium laser lithotripsy, extraction of multiple stone fragments, insert left ureteral stent. SURGEON: Arsh Littlejohn ANESTHESIA TYPE: General LMA/ETT Refer to Anesthesia Record ESTIMATED BLOOD LOSS: 30 PATHOLOGY: other (stones for chemical analysis) COMPLICATIONS: None Patient was transported to: PACU Patient's condition: stable Implants: 6 Tunisian bu 22 to 30 cm left ureteral stent Indications: This is a 46-year-old woman who has a history of kidney stones. She has been treated with ESWL and stenting in the past. She recently was found to have a left sided kidney stone that was not causing obstruction, but she was due to have a hysterectomy for dysfunctional vaginal bleeding. We elected to place a ureteral stent to ensure the stone did not become obstructive while she was healing from her hysterectomy. She is now fully recovered from hysterectomy and she presents for stone manipulation. Findings: large stone lower pole of left kidney Procedure Description: The patient was given preoperative IV antibiotics and brought to the operating room on 03/30/2022. After successful induction of general anesthesia, she was haleigh wesley in the dorsal lithotomy position. Her genitalia was prepped and draped. 2% Xylocaine jelly was instilled into the urethra. A 22 Tunisian rigid cystoscope was passed through the urethra into the bladder. The bladder was inspected with a 30 degree lens. A stent could be seen protruding from the left ureteral orifice. The stent was grasped and alligator forceps and brought out to the level of the urethral meatus. A Glidewire was then advanced through the lumen of the stent and the stent was removed leaving the wire in place. A dual-lumen catheter was passed over the wire and a retrograde pyelogram was obtained by injecting Omnipaque through the second lumen of the dual-lumen catheter. A large stone could be outlined in the lower pole calyx. Second Glidewire was then positioned and the access catheter was removed. We chose one of the wires as a working wire and the other as a safety wire. A ureteral access sheath was passed over the working wire and positioned such that the proximal end of the sheath was seen within the proximal ureter. The flexible ureteroscope was passed through the access sheath up to the kidney. The calyces were inspected and the large stone was seen in the lower pole calyx. We then used the 272 ?m holmium laser fiber to fragment the stone. We used a power setting of 800 and rate of 8. The stone fragmented quite nicely. Multiple stone fragments were grasped in a 0 tip stone basket and extracted. All of these stone fragments were sent to pathology for chemical analysis. At the completion of the procedure, visibility became difficult because of all the sand and dust in the urine. We elected to place a ureteral stent and make a plan to return to the operating room in another week or so to address any residual stone fragments. We chose a 6 Tunisian variable length stent and advanced it over the safety wire. The proximal end of the stent was curled in the renal pelvis and the distal and was curled within the bladder. The posit ioning of the stent was confirmed both fluoroscopically and cystoscopically. The patient tolerated this procedure with no complications.
[2022-03-30] MEDS: ACETAMINOPHEN 1,000 MG/100 ML BTL 400 MG IVPB (13:49)
[2022-03-30] MEDS: ACETAMINOPHEN 1,000 MG/100 ML BTL 1000 MG (13:49)
[2022-03-30] MEDS: Phenazopyridine 200 MG TAB PO (14:23)
--- NOTE | 2022-03-30 15:31 | W.ANESPOSTOP ---
Postoperative Evaluation Date, Time and Location Date Performed: 03/30/22 Time Performed: 15:31 Patient Location: Day Surgery Unit Vital Signs Most Recent Imported Vital Signs: Most Recent Vital Signs Temp Pulse Resp BP Pulse Ox 36.4 C L 76 18 132/87 95 03/30/22 15:00 03/30/22 15:00 03/30/22 15:00 03/30/22 15:00 03/30/22 15:00 Pain Score Most Recent Pain Score: Most Recent Pain Score Pain Level 2 03/30/22 15:00 Assessment Mental Status: Awake (Alert & Oriented to Patient Baseline) Airway and Respiratory Function: Patent airway with normal (patient baseline) respiratory exam Cardiovascular Function: Hemodynamically Stable Hydration Status: Adequately Hydrated Nausea & Vomiting: No Nausea or Vomiting Pain: Pain is tolerable per patient Peripheral Nerve Block: Patient did not receive a nerve block
== END 2022-03-30 15:11 | disposition home or self-care (01) ==
PROVIDERS: PCP Nurse Practitioner Family; Visit Provider Urology
PROC: (CPT 52356; principal; 2022-03-30 11:00)
DX: N20.0 Calculus of kidney (principal); F41.9 Anxiety disorder, unspecified; D64.9 Anemia, unspecified
CPT/HCPCS: 52356; 74420; J0131; J0690; J1100; J1885; J2250; J2405

== ENCOUNTER 2022-04-17 18:25 | Outpatient (REF) | payer BC, MEDICAID, SELFPAY ==
[2022-04-17 16:38] LABS: Source Nasal/Nares
[2022-04-17 21:54] LABS: COVID-19 PCR Negative (Negative)
== END 2022-04-17 18:26 | disposition home or self-care (01) ==
LOC: LBN 18:25
PROVIDERS: PCP Nurse Practitioner Family; Visit Provider Urology
DX: Z20.822 Contact with and (suspected) exposure to COVID-19 (principal); Z01.818 Encounter for other preprocedural examination
CPT/HCPCS: 87635

== ENCOUNTER 2022-04-20 08:32 | Day surgery (SDC) | payer BC, MEDICAID, SELFPAY ==
[2022-04-20 08:52] VITALS: BP 127/76; PULSE 73; RESP 16; TEMP 36.7; O2SAT 96
--- NOTE | 2022-04-20 09:27 | W.ANESPRE ---
General Info Date of Service Date Performed: 04/20/22 Height: 5 ft 7 in Weight: 102 kg Body Mass Index (BMI): 35.2 Surgical Procedure: Operation Date: 04/20/22 10:10 Proposed Procedure Side Surgeon p Cystoscopy/Retrograde/Ureteroscopy/Removal Ureteral Stent/Possible Stone Fragment Removal Left Arsh Littlejohn MD Meds Allergies and Home Medications Allergies Allergy/AdvReac Type Severity Reaction Status Date / Time hayfever Allergy Uncoded 04/20/22 08:48 Home Medication Medication Instructions Recorded amlodipine 5 mg tablet 5 mg PO DAILY #30 tabs 09/24/21 lorazepam 0.5 mg tablet (Ativan) 0.5 mg PO BID PRN anxiety #10 tabs 09/24/21 chlorthalidone 25 mg tablet 25 mg PO DAILY 10/25/21 lisinopril 40 mg tablet 30 mg PO DAILY 10/25/21 metoprolol tartrate 50 mg tablet 25 mg PO BID 10/25/21 omeprazole 20 mg capsule,delayed 20 mg PO DAILY 10/25/21 release methadone 5 mg/5 mL oral solution 110 mg PO DAILY 02/25/22 ibuprofen 600 mg tablet 600 mg PO Q6H PRN PRN #30 tabs 02/27/22 ondansetron HCl 4 mg tablet 4 mg PO TID-QID PRN nausea and 03/11/22 vomiting #20 tabs Current Visit Medications: Current Medications Generic Name Dose Route Start Last Admin Trade Name Freq PRN Reason Stop Dose Admin Ringer's Solution 1,000 mls @ 80 mls/hr 04/20/22 06:00 IV 05/17/22 23:59 INFUSION JORDON Cefazolin Sodium/Dextrose 2 gm in 50 mls @ 100 mls/hr 04/20/22 06:00 Ancef Duplex IVPB 04/20/22 16:00 PREOP JORDON IV Miscellaneous Supplies 1 each 04/20/22 06:00 Iv Access IV 05/17/22 23:59 DIRECTED JORDON Iohexol 0 ml 04/20/22 09:00 Omnipaque 240 Mg/Ml 50 Ml Btl IV 04/20/22 16:00 DIRECTED JORDON Sodium Chloride 0 ml 04/20/22 06:00 Normal Saline Flush 10 Ml Syr IV 05/17/22 23:59 PRN PRN Sodium Chloride 0 ml 04/20/22 06:00 Normal Saline 10 Ml Vial IJ 05/17/22 23:59 DIRECTED PRN Sterile Water 0 ml 04/20/22 06:00 Water,Injection,Sterile 10 Ml Vial IJ 05/17/22 23:59 DIRECTED PRN PFSH Active Problems Active Problems: Problem Status Onset Code Anxiety F41.9 Headache R51.9 Hypertension I10 Abnormal uterine bleeding (AUB) N93.9 Uterine fibroid D25.9 Renal calculus N20.0 Status post laparoscopic assisted vaginal hysterectomy (LAVH) Z90.710 Pelvic abscess in female N73.9 Anemia D64.9 Medical History Medical History Gout Hx of drug abuse pt. 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 Sarcoidosis Stroke, hemorrhagic Medical History Comments:: pt reports issues with pain control coming out of anesthesia Surgical History Surgical History H/O: hysterectomy History of lithotripsy Tobacco Smoking/Tobacco Use Status: Never Alcohol Alcohol Intake: current Alcohol intake frequency: holidays/special occasions only Substance Use Substance use: Current Sobriety Substance use type: former substance user and marijuana Details: states uses marijuana on occassion. last use 6 months ago Vital Signs and Lab Results Vital Signs Most Recent Vital Signs in EMR: Most Recent Vital Signs Temp Pulse Resp BP Pulse Ox 36.7 C 73 16 127/76 96 04/20/22 08:52 04/20/22 08:52 04/20/22 08:52 04/20/22 08:52 04/20/22 08:52 Lab Results Blood Type / Crossmatch: No Data to Display Complete Blood Count: No Data to Display Complete Metabolic Panel: No Data to Display Liver Function Panel: No Data to Display Coagulation Panel: No Data to Display Cardiac Panel: No Data to Display Arterial Blood Gas: No Data to Display Venous Blood Gas: No Data to Display Pancreas Panel: No Data to Display Thyroid Panel: No Data to Display Infectious Disease: Coronavirus (COVID-19)(PCR) Negative (Negative) 04/17/22 10:30 Coronavirus 2019 Source Nasal/Nares 04/17/22 10:30 Blood Cultures: No Data to Display Toxicology Panel: No Data to Display Panel: No Data to Display Imaging and Studies Imaging and Studies Study information below may be from another EMR and interpreted by another provider. Please see original notes in EMR for more complete details. EKG Summary: 11/11: sinus Echocardiogram Summary: 11/11: mild LV hypertrophy, LVEF 55%, normal RvFxn. no sig valve dz. mild ascending Ao dilation 3.77 cm Anesthesia Assessment and Plan Anesthesia History Personal History: No History of Anesthesia Complications Family History: No Family History of Anesthesia Complications Exercise Tolerance Exercise Tolerance: Metabolic Equivalents>4 Pertinent Negatives Pertinent Negatives: No Symptoms of GERD, No Major Cardiovascular Symptoms or Complaints and No Major Pulmonary Symptoms or Complaints Cardiac & Pulmonary Exam Cardiac Exam: Normal S1/S2 Heart Sounds Pulmonary Exam: Clear Bilateral Breath Sounds Implantable Cardiac Device Does patient have a Pacemaker or an ICD?: No Airway Exam Known Difficult Airway: No Mallampati Class: 3 Mouth Opening: Narrow (< 3cm) Thyromental Distance: Greater than 3 cm Neck Range of Motion: Full ROM Neck Circumference: Thick Teeth Condition: Normal Dentition ASA Classification ASA Score: ASA 3 Emergency Case?: No NPO Status NPO Status: NPO Clears >2 hours, Solids >8 hours Status Status: History of Hysterectomy Anesthesia Plan Resuscitation Status: Full Code Anesthesia Technique: General Anesthesia Airway Planned: Natural Airway Monitors Used: Standard Monitors
[2022-04-20] MEDS: Lactated Ringers 1,000 ML 80 ML IV (09:29)
--- NOTE | 2022-04-20 09:45 | W.PM.HP.N ---
Date of service: 04/20/22 Time of Service: 09:45 Assessment and Plan Assessment and plan (1) Renal calculus: Status: Chronic Assessment and plan: We will remove the lrft ureteral stent and run a flexible ureteroscope back up into the kidney to remove any residual stone fragments History of Present Illness History of Present Illness Chief Complaint: Kidney stone Narrative: This is a 46 year old woman who has a history of kidney stones. She has had ESWL and ureteroscopy in the past. Most recently, she was found to have a large nonobstructing stone in the lrft kidney. She underwent ureteroscopy and stone fragment extraction. We placed a ureteral stent. She presents for followup ureteroscopy to insure all significant stone fragments have been removed. Review of Systems Narrative: No fevers or chills No vision change or dysphasia No diabetes or thyroid No shortness of breath, cough or hemoptysis No chest pain or palpitations No hepatitis, ulcers, jaundice, diarrhea or constipation No seizures, strokes or peripheral neuropathy No bleeding disorders No gout PFSH All Active Problems Anxiety (Chronic) Headache (Acute) Hypertension (Chronic) Abnormal uterine bleeding (AUB) (Acute) Uterine fibroid (Acute) Renal calculus (Chronic) Status post laparoscopic assisted vaginal hysterectomy (LAVH) (Acute) With bilateral salpingectomy Pelvic abscess in female (Acute) Anemia (Chronic) Medical History Gout Hx of drug abuse pt. 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 last use 6 months ago Do you feel safe at home: Yes Do you feel safe in your relationship?: Yes Meds Allergies and Home Medications Allergies Allergy/AdvReac Type Severity Reaction Status Date / Time hayfever Allergy Uncoded 04/20/22 08:48 Home Medications Medication Instructions Recorded Confirmed Type amlodipine 5 mg tablet 5 mg PO DAILY #30 tabs 09/24/21 04/20/22 Rx lorazepam 0.5 mg tablet (Ativan) 0.5 mg PO BID PRN anxiety #10 tabs 09/24/21 04/17/22 Rx chlorthalidone 25 mg tablet 25 mg PO DAILY 10/25/21 04/20/22 History lisinopril 40 mg tablet 30 mg PO DAILY 10/25/21 04/20/22 History metoprolol tartrate 50 mg tablet 25 mg PO BID 10/25/21 04/20/22 History omeprazole 20 mg capsule,delayed 20 mg PO DAILY 10/25/21 04/20/22 History release methadone 5 mg/5 mL oral solution 110 mg PO DAILY 02/25/22 04/20/22 History ibuprofen 600 mg tablet 600 mg PO Q6H PRN PRN #30 tabs 02/27/22 04/20/22 Rx ondansetron HCl 4 mg tablet 4 mg PO TID-QID PRN nausea and 03/11/22 04/17/22 Rx vomiting #20 tabs Exam Const General: cooperative Neck Neck: supple Resp Effort & Inspection: normal respiratory effort Auscultation: clear to auscultation bilaterally Cardio Rate: regular rate Rhythm: regular rhythm GI Inspection: normal to inspection Palpation: soft and no masses Neuro General: patient alert, patient awake and patient oriented x3 Results Last Vital Signs Temp 36.7 C 04/20/22 08:52 Pulse 73 04/20/22 08:52 Resp 16 04/20/22 08:52 BP 127/76 04/20/22 08:52 Pulse Ox 96 04/20/22 08:52
[2022-04-20 10:00] VITALS: BMI 35.2
--- NOTE | 2022-04-20 10:15 | DI.RAD_ITS ---
Exam(s) XR RETROGRADE IN OR EXAM: XR RETROGRADE IN OR CLINICAL HISTORY: LEFT RENAL CALCULUS TECHNIQUE: 2D and realtime digital imaging was performed. CONTRAST MATERIAL: Refer to procedure report. COMPARISON: No exams were available for comparison FINDINGS: Fluoroscopy was provided for Dr. Littlejohn during the performance of a retrograde evaluation of the ursula l collecting system. Please refer to the procedure report for complete details. Ka,r=6.43 mGy IMPRESSION: RADIATION DOSE DELIVERED:
[2022-04-20] MEDS: ceFAZolin 2 GM/50 ML BAG IVPB (10:39)
[2022-04-20] MEDS: Lidocaine 2% Jelly 6 ML SYR (10:53)
--- NOTE | 2022-04-20 11:25 | W.PM.DSUDISC ---
Discharge Plan Disposition Patient Disposition: HOME Condition: Good Discharge Details Reason For Visit: renal stone Attending Provider: Arsh Littlejohn Primary Care Provider: COURTNEY DIOR Home Meds and New Rx's Prescriptions: No Action ondansetron HCl 4 mg tablet 4 mg PO TID-QID PRN (Reason: nausea and vomiting) Qty: 20 0RF amlodipine 5 mg tablet 5 mg PO DAILY Qty: 30 0RF lorazepam [Ativan] 0.5 mg tablet 0.5 mg PO BID PRN (Reason: anxiety) Qty: 10 0RF omeprazole 20 mg capsule,delayed release(DR/EC) 20 mg PO DAILY Label Comments: Take 1 capsule by mouth once a day chlorthalidone 25 mg tablet 25 mg PO DAILY metoprolol tartrate 50 mg tablet 25 mg PO BID lisinopril 40 mg tablet 30 mg PO DAILY methadone 5 mg/5 mL Solution 110 mg PO DAILY ibuprofen 600 mg Tablet 600 mg PO Q6H PRN PRNQty: 30 1RF Label Comments: pt states hasn't taken for couple days. Discharge Instructions Additional Instructions: no need to strain urine followup for renal US 6 to 8 weeks Activity:: Activity as Tolerated Shower/Bathe:: 24 hours Diet:: As Tolerated Discharge Orders Discharge Orders: Discharge Order (Routine); Ordered 04/20/22 Ordered By: rAsh Littlejohn DS: Diagnosis Discharge Diagnosis (1) Renal calculus: Status: Chronic
[2022-04-20 11:30] VITALS: BP 123/86; PULSE 82; RESP 18; TEMP 36.7; O2SAT 92
--- NOTE | 2022-04-20 11:30 | W.PM.OP ---
Date of service: 04/20/22 Time of Service: 11:31 Operative Note Operative Note DATE OF PROCEDURE: 04/20/22 PRE-OP DIAGNOSIS: Left renal stone POST-OP DIAGNOSIS: same PROCEDURE: cystoscopy, remove left ureteral stent, left retrograde pyelogram, left ureteroscopy with extraction of multiple stone fragments SURGEON: Arsh Littlejohn ANESTHESIA TYPE: General:No Airway Refer to Anesthesia Record ESTIMATED BLOOD LOSS: 25 PATHOLOGY: other (stone fragments for chemical analysis) Patient was transported to: same day Patient's condition: stable Implants: none Indications: This is a 46-year-old woman who has a history of kidney stones. She has had procedures with other providers She was recently found to have a 14 mm stone in the renal pelvis. She underwent ureteroscopy with holmium laser lithotripsy. I placed a ureteral ureteral stent. She comes today for stent removal and repeat ureteroscopy to remove any residual stone fragments. Findings: Multiple stone fragments in the lower pole calyces and in renal pelvis Procedure Description: The patient was given preoperative antibiotics. After successful induction of general anesthesia, she was placed in the dorsal lithotomy position. Her genitalia was prepped and draped. 2% Xylocaine jelly was instilled into the urethra. A 22 Fijian rigid cystoscope was passed through the urethra into the bladder. The bladder was inspected with a 30 degree lens. A stent could be seen protruding from the left ureteral orifice. The stent was grasped and alligator forceps and brought to the level of the urethral meatus. A Glidewire was then advanced through the lumen of the stent and the stent was removed. I passed the dual-lumen catheter over the wire and positioned the tip of the dual-lumen catheter in the upper ureter. I injected Omnipaque through the dual-lumen catheter in order to outline the calyces. I placed a second wire and chose one of the wires as a working wire and the other as a safety wire. I passed a ureteral access sheath over the working wire. I then inspected the upper ureter and calyces using the flexible ureteroscope. Multiple small stone fragments were seen in the upper ureter. These were grasped in a 0 tip stone basket and removed. Some larger stone fragments were seen in the dependent portion of the renal pelvis. These fragments were likewise grasped and an 0 tip stone basket and removed. Finally, some fragments were seen in the lower pole calyx. These 2 were removed with a 0 tip stone basket. At the completion of the procedure, there were still some stone fragments present but they all appeared to be less than 2 mm in size. We elected not to replace the ureteral stent. All stone fragments that were removed were sent to pathology for permanent section. The patient tolerated this procedure with no complications. All remaining guidewires were removed from the left ureter. The bladder was drained with the cystoscope.
[2022-04-20] MEDS: Phenazopyridine 200 MG TAB PO (11:41)
[2022-04-20] MEDS: Tamsulosin 0.4 MG CAPCR PO (11:42)
[2022-04-20] MEDS: Acetaminophen 500 MG TAB 1000 MG PO (11:50)
[2022-04-20] MEDS: Cyclobenzaprine 10 MG TAB PO (11:50)
[2022-04-20 12:24] VITALS: BP 129/75; PULSE 79; RESP 16; TEMP 36.6; O2SAT 94
--- NOTE | 2022-04-20 12:31 | W.PM.DSUDISC ---
Discharge Plan Disposition Patient Disposition: HOME Condition: Good Discharge Details Reason For Visit: renal stone Attending Provider: Arsh Littlejohn Primary Care Provider: COURTNEY DIOR Home Meds and New Rx's Prescriptions: New ketorolac 10 mg tablet 10 mg PO Q6H PRN5 Days Qty: 15 0RF Rx Instructions: do not take along with other NSAIDs tamsulosin [Flomax] 0.4 mg capsule 0.4 mg PO DAILY Qty: 7 0RF cyclobenzaprine 10 mg tablet 10 mg PO TID PRN (Reason: back spasms) Qty: 10 0RF No Action ondansetron HCl 4 mg tablet 4 mg PO TID-QID PRN (Reason: nausea and vomiting) Qty: 20 0RF amlodipine 5 mg tablet 5 mg PO DAILY Qty: 30 0RF lorazepam [Ativan] 0.5 mg tablet 0.5 mg PO BID PRN (Reason: anxiety) Qty: 10 0RF omeprazole 20 mg capsule,delayed release(DR/EC) 20 mg PO DAILY Label Comments: Take 1 capsule by mouth once a day chlorthalidone 25 mg tablet 25 mg PO DAILY metoprolol tartrate 50 mg tablet 25 mg PO BID lisinopril 40 mg tablet 30 mg PO DAILY methadone 5 mg/5 mL Solution 110 mg PO DAILY ibuprofen 600 mg Tablet 600 mg PO Q6H PRN PRNQty: 30 1RF Label Comments: pt states hasn't taken for couple days. Discharge Instructions Additional Instructions: no need to strain urine followup for renal US 6 to 8 weeks Stand Alone Forms: [facility] Shreya Khalil ([facility]) Activity:: Activity as Tolerated Shower/Bathe:: 24 hours Diet:: As Tolerated Discharge Orders Discharge Orders: Discharge Order (Routine); Ordered 04/20/22 Ordered By: Arsh Littlejohn DS: Diagnosis Discharge Diagnosis (1) Renal calculus: Status: Chronic
--- NOTE | 2022-04-20 14:24 | W.ANESPOSTOP ---
Postoperative Evaluation Date, Time and Location Date Performed: 04/20/22 Time Performed: 14:25 Patient Location: [facility] Vital Signs Most Recent Imported Vital Signs: Most Recent Vital Signs Temp Pulse Resp BP Pulse Ox 36.6 C 79 16 129/75 94 04/20/22 12:24 04/20/22 12:24 04/20/22 12:24 04/20/22 12:24 04/20/22 12:24 Pain Score Most Recent Pain Score: Most Recent Pain Score Pain Level 9 04/20/22 12:24 Assessment Mental Status: Other Airway and Respiratory Function: Other Cardiovascular Function: Other Hydration Status: Adequately Hydrated Nausea & Vomiting: No Nausea or Vomiting Pain: Other Peripheral Nerve Block: Other Postoperative Comments:: Patient was discharged from [facility] prior to anesthesia evaluation. Patient was hemodynamically stable on arrival to [facility] after intraoperative period.
[2022-04-28 08:55] LABS: Source: Left Kidney
== END 2022-04-20 13:24 | disposition home or self-care (01) ==
PROVIDERS: PCP Nurse Practitioner Family; Visit Provider Urology
PROC: (CPT 52352; principal; 2022-04-20 10:00)
DX: N20.0 Calculus of kidney (principal); I10 Essential (primary) hypertension; D64.9 Anemia, unspecified
CPT/HCPCS: 52352; 74420; 82365; J0690; J1100; J1885; J2250; J2405; J2704

== ENCOUNTER 2022-06-03 10:17 | Emergency (ER) | payer BC, MEDICAID, SELFPAY ==
[2022-06-03 10:21] VITALS: BP 149/105; PULSE 114; RESP 20; TEMP 36.7; O2SAT 98
--- NOTE | 2022-06-03 10:30 | RT.EKG_ITS ---
APPROVED REPORT Exam: Resting ECG Reason for Exam: headache, tachycardia Patient Location: E HR:97 bpm ECG Measurements Heart Rate 97 AXIS NM 137 P -8 QRSd 113 QRS -68 QT 428 T 28 QTc 544 Conclusion Sinus rhythm...normal P axis, V-rate 60- 99 LAD, consider left anterior fascicular block...axis(240,-40), S>R II III aVF Left ventricular hypertrophy...multiple LVH criteria Prolonged QT interval...QTc >510mS no STEMI I have reviewed and interpreted ECG and agree with software generated interpretation.
[2022-06-03] MEDS: LORazepam 2 MG/ML VIAL 1 MG IVP (10:57)
[2022-06-03] MEDS: Prochlorperazine 10 MG/2 ML VIAL IVP (11:00)
[2022-06-03] MEDS: Normal Saline 1,000 ML 1000 ML IV (11:10)
[2022-06-03 11:11] LABS: Abs Immature Grans 0.01 10^3/uL (0.0-0.06); Absolute Basophil Count 0.06 10^3/uL (0.0-0.2); Absolute Eosinophil Count 0.13 10^3/uL (0.0-0.7); Absolute Monocyte Count 0.54 10^3/uL (0.1-0.8); Absolute Neutrophil Count 3.93 10^3/uL (1.2-6.7); Basophils % 1.1; Eosinophils % 2.3; HCT 41.8 % (36.0-46.0); HGB 14.1 g/dL (11.2-15.7); Immature Grans % 0.2; Lymphocytes % 16.2; MCH 29.5 pg (27.0-33.0); MCHC 33.7 % (32.0-36.0); MCV 87 fL (80-95); MPV 9.2 fL (8.0-11.0); Monocytes % 9.7; Neutrophils % 70.5; Platelet Count 222 10^3/uL (130-400); RBC 4.78 10^6/uL (3.93-5.22); RDW 14.6 % (11.7-14.6); WBC 5.57 10^3/uL (4.4-10.8)
--- NOTE | 2022-06-03 11:25 | SUR.PHASEI ---
pt left without notification of staff pt left with iv catheter in place police notified
[2022-06-03 11:36] LABS: ALT 56 U/L (14-59); AST 46 U/L (15-37); Albumin 4.2 g/dL (3.4-5.0); Alkaline Phosphatase 57 U/L (46-116); Anion Gap 8.7 mmol/L (3-11); BUN 22 mg/dL (7-18); Bilirubin, Total 0.6 mg/dL (0.2-1.0); CO2 32.3 mmol/L (21.0-32.0); CREATININE 1.2 mg/dL (0.55-1.02); Calcium 9.6 mg/dL (8.5-10.1); Chloride 96 mmol/L (98-107); Estimated GFR 56.54 (mL/min/1.73m2); Glucose 190 mg/dL (74-106); Sodium 137 mmol/L (136-145); TSH (W/Ref FT4) 1.08 uIU/mL (0.36-3.74); Total Protein 8.3 g/dL (6.4-8.2)
[2022-06-03 11:38] LABS: Potassium 2.8 mmol/L (3.5-5.1)
--- NOTE | 2022-06-03 13:18 | ED.GENADUL_ITS ---
Discharge Plan Disposition Patient Disposition: AGAINST MEDICAL ADVICE Discharge Details Clinical Impression: Headache Primary Care Provider: COURTNEY DIOR ED Provider: Juany Dailey Home Meds and New Rx's Prescriptions: No Action ondansetron HCl 4 mg tablet 4 mg PO TID-QID PRN (Reason: nausea and vomiting) Qty: 20 0RF tamsulosin [Flomax] 0.4 mg capsule 0.4 mg PO DAILY Qty: 7 0RF cyclobenzaprine 10 mg tablet 10 mg PO TID PRN (Reason: back spasms) Qty: 10 0RF amlodipine 5 mg tablet 5 mg PO DAILY Qty: 30 0RF lorazepam [Ativan] 0.5 mg tablet 0.5 mg PO BID PRN (Reason: anxiety) Qty: 10 0RF omeprazole 20 mg capsule,delayed release(DR/EC) 20 mg PO DAILY Label Comments: Take 1 capsule by mouth once a day chlorthalidone 25 mg tablet 25 mg PO DAILY metoprolol tartrate 50 mg tablet 25 mg PO BID lisinopril 40 mg tablet 30 mg PO DAILY methadone 5 mg/5 mL Solution 110 mg PO DAILY ibuprofen 600 mg Tablet 600 mg PO Q6H PRN PRNQty: 30 1RF Label Comments: pt states hasn't taken for couple days. Discharge Data Discharge Date/Time-TO BE ENTERED AT DEPARTURE: 06/03/22 12:06 Medical Decision Making Patient is fully alert, oriented, decisional capacity, she is quite anxious throughout encounter I did order CT scan given her prior history and diagnostic blood work Before I was able to reassess patient, she left the emergency department reportedly with IV in place Was not able to reassess her prior to her leaving them unsure what precipitated this event Again at last assessment she is fully alert and oriented Presented states were notified and attempting to ascertain patient's Of note, she is hypokalemic, she was unusually contacted regarding this finding Her potassium is 2.8 Medical Records Medical records reviewed: Yes I reviewed the patient's medical records. Lab Data Lab results reviewed: Yes I reviewed the patient's lab results. HPI General Date/Time Provider Initiated Documentation: 06/03/22 10:28 . HPI Narrative: This 46-year-old female presents with report of headache, nausea, anxiety. She has a hemorrhagic left basal ganglia stroke in 2020 which was secondary to hypertension per patient. She states that she had a headache and mild right- sided weakness at that time. Today she presents with a typical migraine for her but feels very anxious secondary to work and her impending relocation. She denies any strength or sensation change. She denies any suicidal ideation. She denies any stiff neck or fever. She denies any illicit drug use. She denies any falls or injuries. She specifically denies worst headache of life. She states her blood pressures been slightly elevated over the course of the past week. She has adjusted her blood pressure medication at home per patient. Related Data Home Medications Medication Instructions Recorded Confirmed amlodipine 5 mg tablet 5 mg PO DAILY #30 tabs 09/24/21 06/03/22 lorazepam 0.5 mg tablet (Ativan) 0.5 mg PO BID PRN anxiety #10 tabs 09/24/21 06/03/22 chlorthalidone 25 mg tablet 25 mg PO DAILY 10/25/21 06/03/22 lisinopril 40 mg tablet 30 mg PO DAILY 10/25/21 06/03/22 metoprolol tartrate 50 mg tablet 25 mg PO BID 10/25/21 06/03/22 omeprazole 20 mg capsule,delayed 20 mg PO DAILY 10/25/21 06/03/22 release methadone 5 mg/5 mL oral solution 110 mg PO DAILY 02/25/22 06/03/22 ibuprofen 600 mg tablet 600 mg PO Q6H PRN PRN #30 tabs 02/27/22 06/03/22 ondansetron HCl 4 mg tablet 4 mg PO TID-QID PRN nausea and 03/11/22 06/03/22 vomiting #20 tabs cyclobenzaprine 10 mg tablet 10 mg PO TID PRN back spasms #10 04/20/22 06/03/22 tabs tamsulosin 0.4 mg capsule (Flomax) 0.4 mg PO DAILY ureteral spasms #7 04/20/22 06/03/22 caps Previous Rx's Medication Instructions Recorded amlodipine 5 mg tablet 5 mg PO DAILY #30 tabs 09/24/21 lorazepam 0.5 mg tablet (Ativan) 0.5 mg PO BID PRN anxiety #10 tabs 09/24/21 ibuprofen 600 mg tablet 600 mg PO Q6H PRN PRN #30 tabs 02/27/22 ondansetron HCl 4 mg tablet 4 mg PO TID-QID PRN nausea and 03/11/22 vomiting #20 tabs cyclobenzaprine 10 mg tablet 10 mg PO TID PRN back spasms #10 04/20/22 tabs tamsulosin 0.4 mg capsule (Flomax) 0.4 mg PO DAILY ureteral spasms #7 04/20/22 caps Allergies Allergy/AdvReac Type Severity Reaction Status Date / Time hayfever Allergy Uncoded 06/03/22 10:24 General Stated Complaint: Headache TARA: 3 Review of Systems All systems reviewed & are unremarkable except as noted in HPI and below PFSH All Active Problems (Updated 06/04/22 @ 10:42 by KAMILA Milan) Headache (Acute) Renal calculus, left (Acute) Anxiety (Chronic) Headache (Acute) Hypertension (Chronic) Abnormal uterine bleeding (AUB) (Acute) Uterine fibroid (Acute) Renal calculus (Chronic) Status post laparoscopic assisted vaginal hysterectomy (LAVH) (Acute) With bilateral salpingectomy Pelvic abscess in female (Acute) Anemia (Chronic) Medical History (Updated 06/04/22 @ 10:42 by KAMILA Milan) Gout Hx of drug abuse pt. 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 last use 6 months ago Do you feel safe at home: Yes Do you feel safe in your relationship?: Yes Exam Const General: anxious Orientation: alert and oriented x3 Eyes Pupils: PERRL Neck Other: no meningismus Resp Effort & Inspection: normal respiratory effort Cardio Rate: regular rate Rhythm: regular rhythm GI Inspection: normal to inspection Skin General skin exam: no rashes or lesions noted Neuro General: patient alert Cranial Nerves: CN's II-XI intact bilaterally and tongue midline Gait: normal gait Sensory Exam: no sensory deficits noted Other: neg fnf, neg heel davies, negative pronator drift Course Vital Signs Vital signs: Vital Signs Temperature 36.7 C 06/03/22 10:21 Pulse 114 H 06/03/22 10:21 Respiratory Rate 20 06/03/22 10:21 Blood Pressure 149/105 H 06/03/22 10:21 Pulse Oximetry 98 06/03/22 10:21 Temperature 36.7 C 06/03/22 10:21 Temperature Source Temporal Artery Scan 06/03/22 10:21 Pulse 114 H 06/03/22 10:21 Respiratory Rate 20 06/03/22 10:21 Respiratory Effort Non-Labored 06/03/22 10:25 Blood Pressure 149/105 H 06/03/22 10:21 Blood Pressure Position Sitting 06/03/22 10:21 Pulse Oximetry 98 06/03/22 10:21 Oxygen Delivery Method Room Air 06/03/22 10:21 Oxygen Flow Rate 0 06/03/22 10:21 Pain Level 10 06/03/22 10:21 Lab/Test Results Lab/Test Results: Laboratory Tests Range/Units 06/03/22 06/03/22 10:55 10:55 WBC (4.4-10.8) 10^3/uL 5.57 RBC (3.93-5.22) 10^6/uL 4.78 Hgb (11.2-15.7) g/dL 14.1 Hct (36.0-46.0) % 41.8 MCV (80-95) fL 87 MCH (27.0-33.0) pg 29.5 MCHC (32.0-36.0) % 33.7 RDW (11.7-14.6) % 14.6 Plt Count (130-400) 10^3/uL 222 MPV (8.0-11.0) fL 9.2 Immature Gran % 0.2 Neutrophils % 70.5 Lymphocytes % 16.2 Monocytes % 9.7 Eosinophils % 2.3 Basophils % 1.1 Nucleated RBC % (0.0-0.3) % 0.0 Absolute Neutrophils (1.2-6.7) 10^3/uL 3.93 Absolute Lymphocytes (1.2-3.4) 10^3/uL 0.90 L Absolute Monocytes (0.1-0.8) 10^3/uL 0.54 Absolute Eosinophils (0.0-0.7) 10^3/uL 0.13 Absolute Basophils (0.0-0.2) 10^3/uL 0.06 Sodium (136-145) mmol/L 137 Potassium (3.5-5.1) mmol/L 2.8 L* Chloride (98-107) mmol/L 96 L Carbon Dioxide (21.0-32.0) mmol/L 32.3 H Anion Gap (3-11) mmol/L 8.7 BUN (7-18) mg/dL 22 H Creatinine (0.55-1.02) mg/dL 1.2 H Est GFR (CKD-EPI 2020) (mL/min/1.73m2) 56.54 Glucose (74-106) mg/dL 190 H Calcium (8.5-10.1) mg/dL 9.6 Total Bilirubin (0.2-1.0) mg/dL 0.6 AST (15-37) U/L 46 H ALT (14-59) U/L 56 Alkaline Phosphatase (46-116) U/L 57 Total Protein (6.4-8.2) g/dL 8.3 H Albumin (3.4-5.0) g/dL 4.2 TSH (0.36-3.74) uIU/mL 1.08
== END 2022-06-03 12:06 | disposition left against medical advice (07) ==
LOC: ER 10:39
PROVIDERS: Emergency Provider Physician Assistant; PCP Nurse Practitioner Family
DX: R51.9 Headache, unspecified (principal); F41.9 Anxiety disorder, unspecified; R11.0 Nausea; I10 Essential (primary) hypertension; Z86.73 Personal history of transient ischemic attack (TIA), and cerebral infarction without residual deficits
CPT/HCPCS: 80053; 93005; 96361; 96374; 96375; 99284; 84443; 85025; 93010; J0780; J2060